=== PATIENT | male | born 1950 | race Caucasian/White ===

== ENCOUNTER 2017-08-01 10:51 | Inpatient (IN) | payer OTHER ==
[~2017-08-01] VITALS: Ht 182.9 cm; Wt 126.2 kg
[~2017-08-01 10:51] MED LIST: ADVAIR HFA 115-12 GM INH; BENICAR40 M1 PO; CARVEDILOL6.25 M1 PO; CENTRUM SILVER1 EAC3 PO; ENBREL50 MG/1 M1 SC; FINASTERIDE5 M1 PO; FOLIC ACID1 M1 PO; FUROSEMIDE40 M1 PO; KLOR-CON M1010 ME1 PO; METHOTREXATE2.5 M2 PO; PREDNISONE20 M1 PO; PREDNISONE5 M1 PO; VENTOLIN HFA18 GM INH; VITAMIN D31000 UNI2 PO; XARELTO20 M2 PO
--- NOTE | 2017-08-01 12:44 | ED GENERAL ADULT ---
History of Present Illness General Chief Complaint: General Adult Stated Complaint: SENT BY FOR POSSIBLE HEART VALVE INFECTION Source: patient, family, old records Exam Limitations: no limitations Allergies Coded Allergies: No Known Allergies (08/01/17) Reconcile Medications Albuterol Sulfate (Ventolin Hfa) 90 MCG HFA.AER.AD 2 PUF INH Q6-PRN PRN SHORTNESS OF BREATH (Reported) Carvedilol 6.25 MG TABLET 1 TAB PO BID HEART (Reported) Cholecalciferol (Vitamin D3) 1,000 UNIT TABLET 1 TAB PO DAILY VITAMIN SUPPORT (Reported) Etanercept (Enbrel) 50 MG/ML (0.98 ML) PEN.INJCTR 1 INJ SC QMON RA (Reported) Finasteride 5 MG TABLET 1 TAB PO DAILY PROSTATE (Reported) Fluticasone Propionate/Salme (Advair Hfa 115-21 Mcg Inhaler) 115 MCG-21 MCG/ ACTUATION HFA.AER.AD 2 PUFF INH BID BREATHING PROBLEMS (Reported) Folic Acid 1 MG TABLET 1 TAB PO DAILY SUPPLEMENT (Reported) Furosemide 40 MG TABLET 1 TAB PO DAILY WATER RETENTION (Reported) Methotrexate 2.5 MG TABLET 6 TAB PO QMON RA (Reported) Multivit-Min/FA/Lycopen/Lutein (Centrum Silver Tablet) 0.4 MG-300 MCG-250 MCG TABLET 1 TAB PO DAILY VITAMIN SUPPORT (Reported) Olmesartan Medoxomil (Benicar) 40 MG TABLET 1 TAB PO DAILY HEART (Reported) Potassium Chloride (Klor-Con M10) 10 MEQ TAB.ER.PRT 1 TAB PO DAILY SUPPLEMENT (Reported) Prednisone 5 MG TABLET 1 TAB PO DAILY STEROID (Reported) Rivaroxaban (Xarelto) 20 MG TABLET 1 TAB PO DAILY BLOOD THINNER (Reported) with food Triage Note: PT SENT FROM [facility] OFFICE FOR FEVER X3 WEEKS. PT REPORTS TMAX OF 100.1 PAST 3 WEEKS, AFEBRILE IN TRIAGE. PT'S REPORTS CHILLS/SWEATS X1 MONTH. PT NOTICEABLY AGITATED ABOUT BEING SENT TO ED. AWAKE/ALERT WITH EASY WOB. PT REPORTS TAKING TYLENOL 2 TIMES A DAY X 2 WEEKS. REPORTS PT HAS LOST 60LB WEIGHT LOSS IN PAST TWO MONTHS "BUT HE HAS BEEN ON A DIET"." Triage Nurses Notes Reviewed? yes Onset: Gradual Duration: week(s): Timing: recent history Injury Environment: home Severity: moderate HPI: 67yo male with hx of a fib s/p pacemaker/defibrillation on Xarelto, COPD on CPAP , CHF current daily tobacco user presents to ED complaining of intermittent fevers and chills x > 1 month. Patient was sent in by his primary care provider for concerns of sepsis from his left knee and hip replacement 15 years ago. He was also seen by his certified nutritionist on Friday who did not express any concerns. He states his fevers have been in the range of 98.6-100.1 F with improvement on Tylenol. PAtient reports chronic dyspnea worse with exersion however no new changes. He endorses 60 pound weight loss in two months for which he attributes to his new diet. He denies chest pain, palpitations, nausea, vomiting, abdominal pain, hip & knee pain. (Luzma Deleon) Vital Signs & Intake/Output Vital Signs & Intake/Output Vital Signs Date Time Temp Pulse Resp B/P B/P Pulse O2 O2 Flow FiO2 Mean Ox Delivery Rate 08/01 1634 99.1 72 20 140/78 96 Room Air / 1510 99.2 69 20 137/74 95 Room Air 04/ 1336 99.1 71 22 153/73 95 Room Air 04/ 1103 97.3 78 16 140/79 95 Room Air (Kita BAEZ,Juanito Quezada) Past History Travel History Traveled to [place] past 21 day No Medical History Any Pertinent Medical History? see below for history Neurological: NONE EENT: NONE Cardiovascular: AFIB, CHF, hypertension Respiratory: COPD, emphysema, pneumonia Gastrointestinal: NONE Hepatic: NONE Renal: NONE Musculoskeletal: rheumatoid arthritis Psychiatric: NONE Endocrine: NONE Blood Disorders: NONE Cancer(s): NONE History of MRSA: No History of VRE: No History of CDIFF: No Influenza Vaccine: 02/26/10 Surgical History Surgical History: hip replacement, knee replacement Psychosocial History Who do you live with Family Services at Home None What is your primary language Maori Tobacco Use: Current Daily Use Daily Tobacco Use Amount/Type: => 5 Cigarettes daily Family History Family History, If Any: Relation not specified for: FH: breast cancer Heart attack Hx Contributory? No (Luzma Deleon) Review of Systems Review of Systems Constitutional: Reports: see HPI. EENTM: Reports: no symptoms. Respiratory: Reports: see HPI. Cardiovascular: Reports: no symptoms. GI: Reports: no symptoms. Genitourinary: Reports: no symptoms. Musculoskeletal: Reports: no symptoms. Skin: Reports: no symptoms. Neurological/Psychological: Reports: no symptoms. Hematologic/Endocrine: Reports: no symptoms. Immunologic/Allergic: Reports: no symptoms. All Other Systems: Reviewed and Negative (Marlen SCALES,Luzma Littlejohn) Physical Exam Physical Exam General Appearance: well developed/nourished, no apparent distress, alert, awake Head: atraumatic, normal appearance Eyes: Bilateral: normal appearance. Ears, Nose, Throat: hearing grossly normal Neck: normal inspection, supple, full range of motion Respiratory: no respiratory distress, decreased breath sounds Cardiovascular: regular rate/rhythm Gastrointestinal: normal bowel sounds, soft, non-tender, obese Back: normal inspection, normal range of motion, no CVA tenderness Extremities: normal range of motion, 1-2+ pitting edema Neurologic/Psych: no motor/sensory deficits, awake, alert, oriented x 3, normal mood/affect Skin: intact, normal color, warm/dry Core Measures ACS in differential dx? No CVA/TIA Diagnosis: No Sepsis Present: No Sepsis Focused Exam Completed? No (Marlen SCALES,Luzma Littlejohn) Progress Differential Diagnoses I considered the following diagnoses in my evaluation of the patient: [Sepsis, pneumonia, malignancy, bowel obstruction, colitis] Diagnostic Imaging: Viewed by Me: Radiology Read, CT Scan. Discussed w/RAD: Radiology Read, CT Scan. Radiology Impression: PATIENT: JUAN DANIEL ZHU PRESENT AGE: 67 PATIENT ACCOUNT NO: [id number] : 48 LOCATION: [facility] ORDERING PHYSICIAN: Luzma SCALES SERVICE DATE: 08/01/17 EXAM TYPE: CAT - CT ABD & PELVIS W IV CONTRAST; CT CHEST W IV CONTRAST EXAMINATION: CT CHEST WITH IV CONTRAST CT ABDOMEN AND PELVIS WITH IV CONTRAST CLINICAL INFORMATION: Fever and weight loss. COMPARISON: Chest CT from 02/08/2013 TECHNIQUE: Multidetector CT imaging examination of the chest, abdomen and pelvis was performed with intravenous administration of 95 mL Optiray 320. Axial images are displayed at 0.625 mm and 5 mm slice thickness. Coronal and sagittal reformatted images were generated at the technologist's workstation and submitted for review. DLP: 1784 mGy-cm FINDINGS: CHEST - LUNGS and PLEURA: Mild -to-moderate centrilobular and paraseptal emphysema. There are secretions layering along the posterior wall of the trachea and right mainstem bronchus. A spiculated masslike opacity/consolidation in the medial right apex is difficult to precisely measure given its irregular border; it measures approximately 6.9 cm transverse, 6 cm AP and 6 cm craniocaudal. The lesion has irregular extensions to overlying pleura and appears to infiltrate through pleura into the paraspinal fat at the T3 level. There is reticular opacity around the lesion. The right upper lobe bronchus is surrounded and compressed by enlarged lymph nodes and/or infiltrative tumor. There are 0.4 cm and 0.2 cm solid, noncalcified nodules of the right middle lobe (images 280 and 326, series 4). Within the right lower lobe, there are a few nodules ranging in size from 0.1 cm to 0.4 cm (images 227, 310 and 429, series 4). Small focus of mild pleural thickening of the left major fissure likely represents a perifissural lymph node (image 223, series 4). MEDIASTINUM: Dual-chamber cardiac pacing lead/ICD in place. The heart size is normal. Atherosclerotic calcification of coronary arteries and thoracic aorta without aortic aneurysm. Pulmonary arteries are normal in caliber. Trace pericardial effusion. The esophagus and thyroid gland are unremarkable. LYMPHATICS: No axillary lymphadenopathy. Large hilar lymph nodes surround and compressed the bronchus of the right upper lobe. At and above the level of the aortic arch, a large paratracheal lymph node measures 3.4 cm transverse, 3.8 cm AP. CHEST WALL/BONES: A nonaggressive sclerotic focus in the inferior left scapula is unchanged compared to 02/08/2013. There are no suspicious osseous lesions within the thorax. No acute findings within the degenerated thoracic spine. ABDOMEN AND PELVIS - HEPATOBILIARY: Multiple simple cysts of the liver. Calcified granuloma within the liver, as well. Cholelithiasis. No intrahepatic or extrahepatic bile duct dilatation. PANCREAS: Unremarkable. SPLEEN: Unremarkable. ADRENAL GLANDS: Unremarkable. KIDNEYS, URETERS, BLADDER: No nephrolithiasis or hydronephrosis. Simple cysts of water attenuation of both kidneys, largest of the upper pole measuring 5.6 cm transverse. Also, there are a few indeterminate, hyperdense cortical lesions which are probably hyperdense cysts, but unable to exclude a solid renal mass. For example, there is a 1.7 cm hyperdense, exophytic lesion of the posterior left upper pole that has attenuation of approximately 60 Hounsfield units (image 65, series 2) and 1.1 cm hyperdense lesion of the left lower pole, attenuation of approximately 30 HU ( image 83, series 2). The ureters are unremarkable. No evidence of bladder mass. GI TRACT AND PERITONEUM: Bowel loops are normal in caliber. Appendix is normal. No inflammation or obstruction along the gastrointestinal tract. No ascites or pneumoperitoneum. ABDOMINAL WALL: No significant findings. VASCULAR: Atherosclerotic calcification of the abdominal aorta without aneurysm. LYMPH NODES: No pathologic sized lymph nodes within the abdomen or pelvis. PELVIC VISCERA: Prostate gland, which is normal in size, has calcifications. There is an old cystic focus of water attenuation around the urethra inferior to the apex of the prostate gland. No pelvic free fluid. OSSEOUS STRUCTURES: Streak artifact is produced by the metallic components of the left total hip arthroplasty. Multilevel facet arthropathy and disc degeneration of the lumbar spine. No aggressive osseous lesions. IMPRESSION: 1. Pulmonary emphysema. 2. Right upper lobe bronchus is occluded by the surrounding lymphadenopathy and/or tumor. The spiculated masslike opacity in the right upper lobe could represent a combination of infiltrative tumor and postobstructive pneumonia. The lesion infiltrates into the adjacent pleura and appears to invade through pleura into paraspinal fat at the T3 level. A large right paratracheal lymph node measures 3.4 x 3.8 cm. Scattered, small nodules are present in the right lung. No pleural effusion. 3. No evidence of metastatic disease within the abdomen or pelvis. 4. Atherosclerotic disease of coronary arteries and aorta without aortic aneurysm. 5. Multiple hepatic and renal cysts. Also, there are a few hyperdense renal cortical lesions that are probably hyperdense cysts, but are not fully characterized on this examination. Solid renal masses are not excluded. 6. Cholelithiasis. DICTATED BY: Benjy Cristobal MD DATE/TIME DICTATED:08/01/171416 CONTRACTS LAW PROFESSOR:TYLOR DATE/TIME TRANSCRIBED:08/01/171416 CONFIDENTIAL, DO NOT COPY WITHOUT APPROPRIATE AUTHORIZATION. <Electronically signed in Other Vendor System> SIGNED BY: Benjy Cristobal MD 08/01/17 1449 CXR Impression: PATIENT: JUAN DANIEL ZHU PRESENT AGE: 67 PATIENT ACCOUNT NO: [id number] : 48 LOCATION: [facility] ORDERING PHYSICIAN: Luzma SCALES SERVICE DATE: 08/01/174 EXAM TYPE: RAD - XRY-CHEST XRAY, TWO VIEWS EXAMINATION: XR CHEST CLINICAL INFORMATION: Fever and weight loss. COMPARISON: 02/05/2017 TECHNIQUE: 2 views of the chest were obtained. FINDINGS: Lungs are hyperexpanded from emphysematous disease. There is abnormal opacity from mass and/or consolidation with surrounding reticulation of the right upper lobe. The region of masslike opacity in the upper lobe measures approximately 5 cm in size. This could represent a combination of neoplasm and pneumonia, given history of fever and weight loss. No pleural effusion. Cardiac silhouette is at the upper range of normal size. Dual-chamber cardiac pacemaker/ AICD in place. Atherosclerotic calcification of the aortic arch. Bones appear diffusely osteopenic. No acute findings within the degenerated thoracic spine. IMPRESSION: 1. Pulmonary emphysema. 2. Abnormal, approximately 5 cm masslike opacity in the right upper lobe. In addition, there is reticular opacity in the upper lobe. No pleural effusion. DICTATED BY: Benjy Cristobal MD DATE/TIME DICTATED:08/01/171408 CONTRACTS LAW PROFESSOR:TYLOR DATE/TIME TRANSCRIBED:1408 CONFIDENTIAL, DO NOT COPY WITHOUT APPROPRIATE AUTHORIZATION. < Electronically signed in Other Vendor System> SIGNED BY: Benjy Cristobal MD 08/01/17 1420 Initial ED EKG: atrial fib/flutter rate 70bpm, nonspecific ST changes Prior EKG: unchanged (02/05/17) (Marlen SCALES,Luzma Littlejohn) Plan of Care: Orders Procedure Date/time Status Regular Diet 08/02 B Active Patient Data 08/01 1854 Active Misc Message 08/01 183 Active ED Holding Orders 08/01 183 Active Admit to inpatient 08/01 183 Active Vital Signs 08/01 183 Active Code Status 08/01 183 Active LACTIC ACID 08/01 1510 Complete Add-on Test (ER Only) 08/01 1253 Active C-REACTIVE PROTEIN 08/01 1230 Complete B-TYPE NATRIURETIC PEP (BNP) 08/01 1230 Complete BLOOD CULTURE 08/01 121 Active TROPONIN LEVEL 08/01 121 Complete LACTIC ACID 08/01 121 Complete HIGH SENSITIVITY CRP 08/01 1209 Complete COMPREHENSIVE METABOLIC PANEL 08/01 121 Complete CBC WITHOUT DIFFERENTIAL 08/01 1209 Complete EKG 08/01 1209 Active Current Medications Sig/Ta Start time Last Medication Dose Stop Time Status Admin Azithromycin 500 MG ONCE ONE 08/01 1899 UNVr (Zithromax) 08/01 1958 Dextrose/Water 250 ML (D5W) Ceftriaxone Sodium 1,000 MG ONCE ONE 08/01 1899 UNVr (Rocephin) 08/01 190 Sodium Chloride 1,000 ML ONCE ONE 08/01 1330 AC 08/01 (Normal Saline 0.9%) 08/01 2328 1330 Laboratory Tests 08/01/17 1520: Lactic Acid 1.5 08/01/17 1230: Anion Gap 12, Estimated GFR > 60, BUN/Creatinine Ratio 30.0 H, Glucose 100 H, Lactic Acid 2.1, Calcium 8.9, Total Bilirubin 0.7, AST 17, ALT 24, Alkaline Phosphatase 71, Troponin I < 0.01, C-Reactive Prot, Quant 8.8 H, C-React Prot High Sens > 15.0 H, Aaz-X-Wdataicxlnl Pept 1270 H, Total Protein 6.4, Albumin 3.1 L, Globulin 3.3, Albumin/Globulin Ratio 0.9 L, CBC w Diff NO MAN DIFF REQ, RBC 4.45 L, MCV 92.8, MCH 30.6, MCHC 33.0, RDW 14.9 H, MPV 10.1, Gran % 82.3 H, Lymphocytes % 6.8 L, Monocytes % 10.0 H, Eosinophils % 0.2, Basophils % 0.7 , Absolute Granulocytes 11.4 H, Absolute Lymphocytes 0.9 L, Absolute Monocytes 1.4 H, Absolute Eosinophils 0, Absolute Basophils 0.1 Microbiology 08/01 1240 BLOOD: Blood Culture - RECD 08/01 1229 BLOOD: Blood Culture - RECD Patient's chest x-ray and CAT scans are showing new lung mass with suspicion for tumor as well as surrounding pneumonia. There is evidence for tumor infiltrate into spine. These findings were discussed with the patient and his family and with Dr. East. I spoke with Dr. BARRIOS who strongly recommended hospital admission for IV antibiotics given likely pneumonia pulmonology consult. Patient agrees to stay for hospital admission. Spoke with hospitalist Dr. Desai regarding this patient's general medicine admission for pneumonia and lung cancer. Case management recommended full admission. (Luzma Deleon) (Kita BAEZ,Juanito Quezada) Departure Departure Disposition: STILL A PATIENT Condition: Stable Clinical Impression Primary Impression: Pneumonia Qualifiers: Pneumonia type: due to unspecified organism Laterality: right Lung location: upper lobe of lung Qualified Code: J18.1 - Lobar pneumonia, unspecified organism Secondary Impressions: Lung cancer Qualifiers: Laterality: right Lung location: upper lobe of lung Qualified Code: C34.11 - Malignant neoplasm of upper lobe, right bronchus or lung Referrals: Aiden Barrios MD (PCP/Family) Departure Forms: Customer Survey General Discharge Information Admission Note Spoke With: Kaley Desai MD Documentation of Exam: Documentation of any treatments & extenuating circumstances including Concerns Regarding Discharge (functional status, medication knowledge or non-compliance, living conditions, etc.) that warrant an admission rather than observation: [New lung cancer with likely surrounding pneumonia requiring IV antibiotics, pulmonology consult, premature discharge medically unsafe.] (Luzma Deleon) PA/DENTAL LABORATORY TECHNICIAN APPRENTICE Co-Sign Statement Statement: ED Attending supervision documentation- [X] I saw and evaluated the patient. I have also reviewed all the pertinent lab results and diagnostic results. I agree with the findings and the plan of care as documented in the PA's/DENTAL LABORATORY TECHNICIAN APPRENTICE's documentation. Patient presents for evaluation of persistent fever and weight loss for roughly a month. Physical examination reveals a comfortable appearing gentleman in no acute respiratory distress. [] I have reviewed the ED Record and agree with the PA's/DENTAL LABORATORY TECHNICIAN APPRENTICE's documentation. [] Additions or exceptions (if any) to the PAs/DENTAL LABORATORY TECHNICIAN APPRENTICE's note and plan are summarized below: [] (Kita BAEZ,Juanito Quezada) Critical Care Note Critical Care Note Critical Care Time: 30-74 min (Luzma Deleon)
[2017-08-01 12:55] LABS: ABSOLUTE BASOPHIL COUNT 0.1 /CUMM (0.0-0.2); ABSOLUTE EOSINOPHIL COUNT 0 /CUMM (0.0-0.7); ABSOLUTE GRANULOCYTE CT 11.4 /CUMM (1.4-6.5); ABSOLUTE LYMPH COUNT 0.9 /CUMM (1.2-3.4); ABSOLUTE MONOCYTE COUNT 1.4 /CUMM (0.10-0.60); BASOPHIL % 0.7 % (0.0-2.0); EOSINOPHIL % 0.2 % (0-5); GRANULOCYTE % 82.3 % (42.2-75.2); HEMATOCRIT 41.3 % (42-52); MEAN CORPUSCULAR HGB 30.6 PG (27.0-31.0); MEAN CORPUSCULAR VOLUME 92.8 FL (80.0-94.0); MEAN PLATELET VOLUME 10.1 FL (7.4-10.4); PLATELET COUNT 302 /CUMM (130-400); RBC DISTRIBUTION WIDTH 14.9 % (11.5-14.5); RED BLOOD CELL CT 4.45 /CUMM (4.70-6.10); WHITE BLOOD CELL COUNT 13.8 /CUMM (4.8-10.8)
--- NOTE | 2017-08-01 14:20 | RADIOLOGY REPORT ---
EXAMINATION: XR CHEST CLINICAL INFORMATION: Fever and weight loss. COMPARISON: 02/05/2017 TECHNIQUE: 2 views of the chest were obtained. FINDINGS: Lungs are hyperexpanded from emphysematous disease. There is abnormal opacity from mass and/or consolidation with surrounding reticulation of the right upper lobe. The region of masslike opacity in the upper lobe measures approximately 5 cm in size. This could represent a combination of neoplasm and pneumonia, given history of fever and weight loss. No pleural effusion. Cardiac silhouette is at the upper range of normal size. Dual-chamber cardiac pacemaker/AICD in place. Atherosclerotic calcification of the aortic arch. Bones appear diffusely osteopenic. No acute findings within the degenerated thoracic spine. IMPRESSION: 1. Pulmonary emphysema. 2. Abnormal, approximately 5 cm masslike opacity in the right upper lobe. In addition, there is reticular opacity in the upper lobe. No pleural effusion.
--- NOTE | 2017-08-01 14:49 | CT SCAN REPORT ---
EXAMINATION: CT CHEST WITH IV CONTRAST CT ABDOMEN AND PELVIS WITH IV CONTRAST CLINICAL INFORMATION: Fever and weight loss. COMPARISON: Chest CT from 02/08/2013 TECHNIQUE: Multidetector CT imaging examination of the chest, abdomen and pelvis was performed with intravenous administration of 95 mL Optiray 320. Axial images are displayed at 0.625 mm and 5 mm slice thickness. Coronal and sagittal reformatted images were generated at the technologist's workstation and submitted for review. DLP: 1784 mGy-cm FINDINGS: CHEST - LUNGS and PLEURA: [id number] centrilobular and paraseptal emphysema. There are secretions layering along the posterior wall of the trachea and right mainstem bronchus. A spiculated masslike opacity/consolidation in the medial right apex is difficult to precisely measure given its irregular border; it measures approximately 6.9 cm transverse, 6 cm AP and 6 cm craniocaudal. The lesion has irregular extensions to overlying pleura and appears to infiltrate through pleura into the paraspinal fat at the T3 level. There is reticular opacity around the lesion. The right upper lobe bronchus is surrounded and compressed by enlarged lymph nodes and/or infiltrative tumor. There are 0.4 cm and 0.2 cm solid, noncalcified nodules of the right middle lobe (images 280 and 326, series 4). Within the right lower lobe, there are a few nodules ranging in size from 0.1 cm to 0.4 cm (images 227, 310 and 429, series 4). Small focus of mild pleural thickening of the left major fissure likely represents a perifissural lymph node (image 223, series 4). MEDIASTINUM: Dual-chamber cardiac pacing lead/ICD in place. The heart size is normal. Atherosclerotic calcification of coronary arteries and thoracic aorta without aortic aneurysm. Pulmonary arteries are normal in caliber. Trace pericardial effusion. The esophagus and thyroid gland are unremarkable. LYMPHATICS: No axillary lymphadenopathy. Large hilar lymph nodes surround and compressed the bronchus of the right upper lobe. At and above the level of the aortic arch, a large paratracheal lymph node measures 3.4 cm transverse, 3.8 cm AP. CHEST WALL/BONES: A nonaggressive sclerotic focus in the inferior left scapula is unchanged compared to 02/08/2013. There are no suspicious osseous lesions within the thorax. No acute findings within the degenerated thoracic spine. ABDOMEN AND PELVIS - HEPATOBILIARY: Multiple simple cysts of the liver. Calcified granuloma within the liver, as well. Cholelithiasis. No intrahepatic or extrahepatic bile duct dilatation. PANCREAS: Unremarkable. SPLEEN: Unremarkable. ADRENAL GLANDS: Unremarkable. KIDNEYS, URETERS, BLADDER: No nephrolithiasis or hydronephrosis. Simple cysts of water attenuation of both kidneys, largest of the upper pole measuring 5.6 cm transverse. Also, there are a few indeterminate, hyperdense cortical lesions which are probably hyperdense cysts, but unable to exclude a solid renal mass. For example, there is a 1.7 cm hyperdense, exophytic lesion of the posterior left upper pole that has attenuation of approximately 60 Hounsfield units (image 65, series 2) and 1.1 cm hyperdense lesion of the left lower pole, attenuation of approximately 30 HU (image 83, series 2). The ureters are unremarkable. No evidence of bladder mass. GI TRACT AND PERITONEUM: Bowel loops are normal in caliber. Appendix is normal. No inflammation or obstruction along the gastrointestinal tract. No ascites or pneumoperitoneum. ABDOMINAL WALL: No significant findings. VASCULAR: Atherosclerotic calcification of the abdominal aorta without aneurysm. LYMPH NODES: No pathologic sized lymph nodes within the abdomen or pelvis. PELVIC VISCERA: Prostate gland, which is normal in size, has calcifications. There is an old cystic focus of water attenuation around the urethra inferior to the apex of the prostate gland. No pelvic free fluid. OSSEOUS STRUCTURES: Streak artifact is produced by the metallic components of the left total hip arthroplasty. Multilevel facet arthropathy and disc degeneration of the lumbar spine. No aggressive osseous lesions. IMPRESSION: 1. Pulmonary emphysema. 2. Right upper lobe bronchus is occluded by the surrounding lymphadenopathy and/or tumor. The spiculated masslike opacity in the right upper lobe could represent a combination of infiltrative tumor and postobstructive pneumonia. The lesion infiltrates into the adjacent pleura and appears to invade through pleura into paraspinal fat at the T3 level. A large right paratracheal lymph node measures 3.4 x 3.8 cm. Scattered, small nodules are present in the right lung. No pleural effusion. 3. No evidence of metastatic disease within the abdomen or pelvis. 4. Atherosclerotic disease of coronary arteries and aorta without aortic aneurysm. 5. Multiple hepatic and renal cysts. Also, there are a few hyperdense renal cortical lesions that are probably hyperdense cysts, but are not fully characterized on this examination. Solid renal masses are not excluded. 6. Cholelithiasis.
--- NOTE | 2017-08-01 20:38 | History & Physical ---
Js Adkins 08/01/172037: General Information and HPI MD Statement: I have seen and personally examined JUAN DANIEL ZHU and documented this H& P. The patient is a 67 year old M who presented with a patient stated chief complaint of [Fever, weakness]. Source of Information: patient, family, old records, PCP Exam Limitations: no limitations History of Present Illness: This is a 67-year-old male with a medical history of A. fib status post AV node ablation and pacemaker placement on Xeralto, rheumatoid arthritis on chronic prednisone, methotrexate and TNF, hypertension, BPH, COPD not on O2 at home, obstructive sleep apnea intermittent use of BiPAP. Presented to the emergency department after pain referred by his primary care doctor due to concern of his fever and chills. Patient stated that for the past month he has low-grade fever that time between 99.9 and 100.1, he stated that he take 2 tablets of Tylenol which help with his fever and chills, also he reports some night sweating, he stated that he change his diet and due to that he lost 60 pounds within the past 4-6 month, he stated that the due to this fever, chills and night sweats he been feeding week, fatigue and tired. He stated there is no change in his cough pattern but still productive with some white sputum, breathing status. He saw his primary care doctor who sent him to the ED for further evaluation due to concern of joint infection as the patient has his left hip replaced 3-5 years ago and his knee more than 10 years ago. He stated that he is compliant with his home medication. He still actively smoker 1-2 pack per day for the past 50 years. Patient stated that he follow with his paper tube cutter Bayron Alonzo MD who will obtain for him annual TB testing, his stated that last time was around 6 month ago and it was negative. He denies chest pain, excessive wheezing , excessive shortness of breath, palpitations, orthopnea, nausea, vomiting, constipation, diarrhea, abdominal pain, hip & knee pain, hematuria, dysuria. In the ED patient received 1 L of normal saline bolus, started on IV ceftriaxone and azithromycin as the CAT scan of the chest showed obstructive pneumonia with a masslike on the right upper lobe with large right lymphadenopathy. Most recent admission to [facility] was in January 2017 for COPD exacerbation that was treated with IV Solu-Medrol and he'll receive additional dose of IV Lasix. Most recent echocardiogram and the cord was in January 2017 with ejection fraction of 65% Allergies/Medications Allergies: Coded Allergies: No Known Allergies (08/01/17) Home Med list Albuterol Sulfate (Ventolin Hfa) 90 MCG HFA.AER.AD 2 PUF INH Q6-PRN PRN SHORTNESS OF BREATH (Reported) Carvedilol 6.25 MG TABLET 1 TAB PO BID HEART (Reported) Cholecalciferol (Vitamin D3) 1,000 UNIT TABLET 1 TAB PO DAILY VITAMIN SUPPORT (Reported) Etanercept (Enbrel) 50 MG/ML (0.98 ML) PEN.INJCTR 1 INJ SC QMON RA (Reported) Finasteride 5 MG TABLET 1 TAB PO DAILY PROSTATE (Reported) Fluticasone Propionate/Salme (Advair Hfa 115-21 Mcg Inhaler) 115 MCG-21 MCG/ ACTUATION HFA.AER.AD 2 PUFF INH BID BREATHING PROBLEMS (Reported) Folic Acid 1 MG TABLET 1 TAB PO DAILY SUPPLEMENT (Reported) Furosemide 40 MG TABLET 1 TAB PO DAILY WATER RETENTION (Reported) Methotrexate 2.5 MG TABLET 6 TAB PO QMON RA (Reported) Multivit-Min/FA/Lycopen/Lutein (Centrum Silver Tablet) 0.4 MG-300 MCG-250 MCG TABLET 1 TAB PO DAILY VITAMIN SUPPORT (Reported) Olmesartan Medoxomil (Benicar) 40 MG TABLET 1 TAB PO DAILY HEART (Reported) Potassium Chloride (Klor-Con M10) 10 MEQ TAB.ER.PRT 1 TAB PO DAILY SUPPLEMENT (Reported) Prednisone 5 MG TABLET 1 TAB PO DAILY STEROID (Reported) Rivaroxaban (Xarelto) 20 MG TABLET 1 TAB PO DAILY BLOOD THINNER (Reported) with food Past History Travel History Traveled to [place] past 21 day No Medical History Neurological: NONE EENT: NONE Cardiovascular: AFIB, CHF, hypertension Respiratory: COPD, emphysema, pneumonia Gastrointestinal: NONE Hepatic: NONE Renal: NONE Musculoskeletal: rheumatoid arthritis Psychiatric: NONE Endocrine: NONE Blood Disorders: NONE Cancer(s): NONE History of MRSA: No History of VRE: No History of CDIFF: No Influenza Vaccine: 02/26/10 Surgical History Surgical History: hip replacement, knee replacement Past Family/Social History Family History Relations & Conditions if any Relation not specified for: FH: breast cancer Heart attack Psychosocial History Who Do You Live With? spouse, child Services at Home: None Primary Language: Greenlandic Smoking Status: Current Everyday Smoker Living Will? yes Functional Ability ADLs Independent: dressing, eating, toileting, bathing. Ambulation: independent Review of Systems Review of Systems Constitutional: Reports: see HPI. Cardiovascular: Reports: see HPI. Respiratory: Reports: see HPI. GI: Reports: see HPI. Genitourinary: Reports: see HPI. Exam & Diagnostic Data Last 24 Hrs of Vital Signs/I&O Vital Signs Date Time Temp Pulse Resp B/P B/P Pulse O2 O2 Flow FiO2 Mean Ox Delivery Rate 08/01 1634 99.1 72 20 140/78 96 Room Air 08/01 1510 99.2 69 20 137/74 95 Room Air 08/01 1336 99.1 71 22 153/73 95 Room Air 08/01 1103 97.3 78 16 140/79 95 Room Air Intake & Output 08/01 1600 08/01 0800 08/01 0000 Intake Total 100 Output Total Balance 100 Intake, IV 100 Intake, Oral 0 Patient 288 lb Weight Weight Reported by Patient Measurement Method Physical Exam General Appearance Alert, Oriented X3, Cooperative Skin right upper chest fold rash Skin Temp/Moisture Exam: Warm/Dry HEENT Atraumatic, PERRLA, EOMI Neck Supple Cardiovascular Normal S1, Normal S2, irregular irregular Lungs Normal Air Movement, bibasilar rhonchi Abdomen Normal Bowel Sounds, Soft, No Tenderness Extremities + 3 bilateral lower extremity pitting edema Last 24 Hrs of Labs/Kali: Laboratory Tests 08/01/17 1520: Lactic Acid 1.5 08/01/17 1230: Anion Gap 12, Estimated GFR > 60, BUN/Creatinine Ratio 30.0 H, Glucose 100 H, Lactic Acid 2.1, Calcium 8.9, Total Bilirubin 0.7, AST 17, ALT 24, Alkaline Phosphatase 71, Troponin I < 0.01, C-Reactive Prot, Quant 8.8 H, C-React Prot High Sens > 15.0 H, Fwl-M-Jyejynsjzcv Pept 1270 H, Total Protein 6.4, Albumin 3.1 L, Globulin 3.3, Albumin/Globulin Ratio 0.9 L, CBC w Diff NO MAN DIFF REQ, RBC 4.45 L, MCV 92.8, MCH 30.6, MCHC 33.0, RDW 14.9 H, MPV 10.1, Gran % 82.3 H, Lymphocytes % 6.8 L, Monocytes % 10.0 H, Eosinophils % 0.2, Basophils % 0.7 , Absolute Granulocytes 11.4 H, Absolute Lymphocytes 0.9 L, Absolute Monocytes 1.4 H, Absolute Eosinophils 0, Absolute Basophils 0.1 Microbiology 08/01 2025 NASOPHARYN: Influenza Virus A & B Rapid Smear - ORD 08/01 1240 BLOOD: Blood Culture - RECD 08/01 1230 BLOOD: Blood Culture - RECD Diagnostic Data EKG Results Atrial fibrillation heart rate 70, QTC 471, no ST-T changes CXR Results EXAMINATION: XR CHEST CLINICAL INFORMATION: Fever and weight loss. COMPARISON: 02/05/2017 TECHNIQUE: 2 views of the chest were obtained. FINDINGS: Lungs are hyperexpanded from emphysematous disease. There is abnormal opacity from mass and/or consolidation with surrounding reticulation of the right upper lobe. The region of masslike opacity in the upper lobe measures approximately 5 cm in size. This could represent a combination of neoplasm and pneumonia, given history of fever and weight loss. No pleural effusion. Cardiac silhouette is at the upper range of normal size. Dual-chamber cardiac pacemaker/AICD in place. Atherosclerotic calcification of the aortic arch. Bones appear diffusely osteopenic. No acute findings within the degenerated thoracic spine. IMPRESSION: 1. Pulmonary emphysema. 2. Abnormal, approximately 5 cm masslike opacity in the right upper lobe. In addition, there is reticular opacity in the upper lobe. No pleural effusion. Other Results EXAMINATION: CT CHEST WITH IV CONTRAST CT ABDOMEN AND PELVIS WITH IV CONTRAST CLINICAL INFORMATION: Fever and weight loss. COMPARISON: Chest CT from 02/08/2013 TECHNIQUE: Multidetector CT imaging examination of the chest, abdomen and pelvis was performed with intravenous administration of 95 mL Optiray 320. Axial images are displayed at 0.625 mm and 5 mm slice thickness. Coronal and sagittal reformatted images were generated at the technologist's workstation and submitted for review. DLP: 1784 mGy-cm FINDINGS: CHEST - LUNGS and PLEURA: [id number] centrilobular and paraseptal emphysema. There are secretions layering along the posterior wall of the trachea and right mainstem bronchus. A spiculated masslike opacity/consolidation in the medial right apex is difficult to precisely measure given its irregular border; it measures approximately 6.9 cm transverse, 6 cm AP and 6 cm craniocaudal. The lesion has irregular extensions to overlying pleura and appears to infiltrate through pleura into the paraspinal fat at the T3 level. There is reticular opacity around the lesion. The right upper lobe bronchus is surrounded and compressed by enlarged lymph nodes and/or infiltrative tumor. There are 0.4 cm and 0.2 cm solid, noncalcified nodules of the right middle lobe (images 280 and 326, series 4). Within the right lower lobe, there are a few nodules ranging in size from 0.1 cm to 0.4 cm (images 227, 310 and 429, series 4). Small focus of mild pleural thickening of the left major fissure likely represents a perifissural lymph node (image 223, series 4). MEDIASTINUM: Dual-chamber cardiac pacing lead/ICD in place. The heart size is normal. Atherosclerotic calcification of coronary arteries and thoracic aorta without aortic aneurysm. Pulmonary arteries are normal in caliber. Trace pericardial effusion. The esophagus and thyroid gland are unremarkable. LYMPHATICS: No axillary lymphadenopathy. Large hilar lymph nodes surround and compressed the bronchus of the right upper lobe. At and above the level of the aortic arch, a large paratracheal lymph node measures 3.4 cm transverse, 3.8 cm AP. CHEST WALL/BONES: A nonaggressive sclerotic focus in the inferior left scapula is unchanged compared to 02/08/2013. There are no suspicious osseous lesions within the thorax. No acute findings within the degenerated thoracic spine. ABDOMEN AND PELVIS - HEPATOBILIARY: Multiple simple cysts of the liver. Calcified granuloma within the liver, as well. Cholelithiasis. No intrahepatic or extrahepatic bile duct dilatation. PANCREAS: Unremarkable. SPLEEN: Unremarkable. ADRENAL GLANDS: Unremarkable. KIDNEYS, URETERS, BLADDER: No nephrolithiasis or hydronephrosis. Simple cysts of water attenuation of both kidneys, largest of the upper pole measuring 5.6 cm transverse. Also, there are a few indeterminate, hyperdense cortical lesions which are probably hyperdense cysts, but unable to exclude a solid renal mass. For example, there is a 1.7 cm hyperdense, exophytic lesion of the posterior left upper pole that has attenuation of approximately 60 Hounsfield units (image 65, series 2) and 1.1 cm hyperdense lesion of the left lower pole, attenuation of approximately 30 HU (image 83, series 2). The ureters are unremarkable. No evidence of bladder mass. GI TRACT AND PERITONEUM: Bowel loops are normal in caliber. Appendix is normal. No inflammation or obstruction along the gastrointestinal tract. No ascites or pneumoperitoneum. ABDOMINAL WALL: No significant findings. VASCULAR: Atherosclerotic calcification of the abdominal aorta without aneurysm. LYMPH NODES: No pathologic sized lymph nodes within the abdomen or pelvis. PELVIC VISCERA: Prostate gland, which is normal in size, has calcifications. There is an old cystic focus of water attenuation around the urethra inferior to the apex of the prostate gland. No pelvic free fluid. OSSEOUS STRUCTURES: Streak artifact is produced by the metallic components of the left total hip arthroplasty. Multilevel facet arthropathy and disc degeneration of the lumbar spine. No aggressive osseous lesions. IMPRESSION: 1. Pulmonary emphysema. 2. Right upper lobe bronchus is occluded by the surrounding lymphadenopathy and/or tumor. The spiculated masslike opacity in the right upper lobe could represent a combination of infiltrative tumor and postobstructive pneumonia. The lesion infiltrates into the adjacent pleura and appears to invade through pleura into paraspinal fat at the T3 level. A large right paratracheal lymph node measures 3.4 x 3.8 cm. Scattered, small nodules are present in the right lung. No pleural effusion. 3. No evidence of metastatic disease within the abdomen or pelvis. 4. Atherosclerotic disease of coronary arteries and aorta without aortic aneurysm. 5. Multiple hepatic and renal cysts. Also, there are a few hyperdense renal cortical lesions that are probably hyperdense cysts, but are not fully characterized on this examination. Solid renal masses are not excluded. 6. Cholelithiasis. Assessment/Plan Assessment: This is a 67-year-old male with a medical history of A. fib status post AV node ablation and pacemaker placement on Xeralto, rheumatoid arthritis on chronic prednisone, methotrexate and TNF, hypertension, BPH, COPD not on O2 at home, obstructive sleep apnea intermittent use of BiPAP. Presented to the emergency department after pain referred by his primary care doctor due to concern of his fever and chills. Patient stated that he have not take his home medications for today. Problem list: -Obstructive right upper lobe pneumonia with lymphadenopathy that could be due to malignancy versus TB versus fungal infection. -Weight loss, generalized weakness due to above. -Leukocytosis due to above and chronic prednisone use. -Active chronic smoker Plan: -Admit patient to general medicine floor -Vitals every shift. -Start the patient on IV Unasyn 3 g every 6 -Blood culture, sputum culture, strep and Legionella urine antigen -Obtain rapid viral flu test. -QuantiFERON, AFB sputum culture giving the p.t RA current treatment. -Nicotine patch 21 mg q24 hr. -TRC nebs as needed, cont his home inhaler -Pulmonary consultation in a.m. to assess the need for biopsy. -We will cont the home medications including Xarelto -If the p.t become hypotensive he we will need steroid stress dose of 100mg IV hydrocortisone. -Heart healthy diet -Pain pathway -DVT ppt: Xarelto -Full code. As Ranked By This Provider Problem List: 1. Pneumonia Qualifiers Pneumonia type: due to unspecified organism Laterality: right Lung location: upper lobe of lung Qualified Code: J18.1 - Lobar pneumonia, unspecified organism Core Measures/Misc (01/12) Acute Coronary Syndrome ACS Diagnosis: No Congestive Heart Failure Congestive Heart Failure Diagnosis No Cerebrovascular Accident CVA/TIA Diagnosis: No VTE (View Protocol) VTE Risk Factors Age>40 No Mechanical VTE Prophylaxis d/t N/A MechProphylax Ordered No VTE Pharm Prophylaxis d/t NA PharmProphylax ordered Sepsis (View protocol) Sepsis Present: No Shayan,Aarteyousif 08/02/17 0537: Attending MD Review Statement Attending Statement Attending MD Statement: examined this patient, discuss w/resident/PA/CONTRACTOR BUYER, agreed w/resident/PA/CONTRACTOR BUYER, discussed with family, reviewed EMR data (avail), reviewed images, amended to note Attending Assessment/Plan: CC: Low-grade fever at home, sent by primary care physician PMH: A. fib, S/P pacemaker and AICD, rheumatoid arthritis, DANIELLE on CPAP, HTN, BPH , HFpEF, COPD Patient came to ER for one-month history of low-grade fever occurring every day, morning and evening, resolved with Tylenol, associated with night sweats and occasional chills. Maximum temperature at home was 100.1. He has chronic shortness of breath, chronic productive cough with white colored sputum production, no hemoptysis. He did not notice any chest pain, palpitation. He has chronic leg edema which is much improved now. He had a 60 pound weight loss in last 2 months part of it is intentional. He was seen by ENT for concern of sinusitis, regular with follow-up with translator and interpreter. Today he was seen by primary care physician and was suggested to go to ER for further evaluation for his fever. He denies any nausea, vomiting, diarrhea, constipation, skin changes, rashes or infection, sick contacts, syncope or presyncope. Vitals: Tmax 99.2, pulse 78, RR 16, blood pressure 140/79, saturating 95% on room air On exam: A O 3, cooperative, obese, no acute distress, neck supple, JVD normal, no lymphadenopathy, mucosa moist, no focal neurological deficit, +1 leg edema, no obvious skin rashes or inflammation except chronic venous changes on bilateral lower extremities CVS: S1-S2, irregular. RS: Bilateral wheezing and rhonchi. Abdomen: Soft, distended, ND, bowel sounds present. CT abdomen and pelvis and chest with IV contrast: 1. Pulmonary emphysema. 2. Right upper lobe bronchus is occluded by the surrounding lymphadenopathy and/or tumor. The spiculated masslike opacity in the right upper lobe could represent a combination of infiltrative tumor and postobstructive pneumonia. The lesion infiltrates into the adjacent pleura and appears to invade through pleura into paraspinal fat at the T3 level. A large right paratracheal lymph node measures 3.4 x 3.8 cm. Scattered, small nodules are present in the right lung. No pleural effusion. 3. No evidence of metastatic disease within the abdomen or pelvis. 4. Atherosclerotic disease of coronary arteries and aorta without aortic aneurysm. 5. Multiple hepatic and renal cysts. Also, there are a few hyperdense renal cortical lesions that are probably hyperdense cysts, but are not fully characterized on this examination. Solid renal masses are not excluded. 6. Cholelithiasis. Assessment and plan 67-year-old male with extensive past medical history presented in ER for 1 month duration of daily low-grade fever, weight loss, night sweats. His bilateral lower extremity edema is improving, has coarse wheezing and rhonchi on examination. CT was obtained in ER which showed infiltrative masslike lesion with post obstructive pneumonia. Given his history of rheumatoid arthritis, currently on immunosuppression this could be infectious process with fungal infection, tuberculosis but at the same time with his extensive smoking history, significant emphysematous disease lung cancer is also possibility. We will start antibiotics empirically for postobstructive pneumonia, obtain cultures but patient would benefit from bronchoscopy and/or percutaneous biopsy. We will obtain pulmonology opinion + Post obstructive pneumonia + Infiltrative masslike lesion : Suspicion of cancer versus fungal infection versus tuberculosis, needed further evaluation + History of A. fib, S/P pacemaker and AICD, rheumatoid arthritis, DANIELLE on CPAP, HTN, BPH, HFpEF, COPD - Admit to general med - Continue Unasyn - Sputum cultures - IGRA - Pulmonology consult - Blood cultures - TRC nebs - Continue on his home medications - Continues xeralto for now - Patient wants to go home as soon as possible, if seen by mails supervisor in the a.m. and cleared for the discharge, could follow up outpatient for further investigations and biopsy
[2017-08-01 22:28] VITALS: BP 126/80
--- NOTE | 2017-08-02 05:39 | Admission Certification ---
Admission Certification Certification Statement - As attending physician, I certify that at the time of - admission, based on clinical presentation, severity of - symptoms, need for further diagnostic testing and - therapeutic interventions, and risk of adverse outcomes - without in-hospital treatment, in my clinical assessment, - this patient requires an acute hospital stay for a minimum - of two nights or longer. I have also considered psychsocial - factors such as support system, advanced age, financial - issues, cognitive issues, and failed out-patient treatments, - past re-admission history, safety of patient, and lack of - compliance as applicable. Specific rationale supporting this admission is: Postobstructive pneumonia, Masslike lesion in the right lung
[2017-08-02 07:00] VITALS: BP 118/64
[2017-08-02 09:06] LABS: ABSOLUTE BASOPHIL COUNT 0 /CUMM (0.0-0.2); ABSOLUTE EOSINOPHIL COUNT 0.1 /CUMM (0.0-0.7); ABSOLUTE GRANULOCYTE CT 8.3 /CUMM (1.4-6.5); ABSOLUTE LYMPH COUNT 0.9 /CUMM (1.2-3.4); ABSOLUTE MONOCYTE COUNT 1.2 /CUMM (0.10-0.60); BASOPHIL % 0 % (0.0-2.0); EOSINOPHIL % 0.6 % (0-5); GRANULOCYTE % 79.1 % (42.2-75.2); HEMATOCRIT 36.7 % (42-52); MEAN CORPUSCULAR HGB 30.5 PG (27.0-31.0); MEAN CORPUSCULAR HGB CONC 32.7 G/DL (33.0-37.0); MEAN CORPUSCULAR VOLUME 93.2 FL (80.0-94.0); MEAN PLATELET VOLUME 10.1 FL (7.4-10.4); PLATELET COUNT 255 /CUMM (130-400); RBC DISTRIBUTION WIDTH 15.2 % (11.5-14.5); RED BLOOD CELL CT 3.94 /CUMM (4.70-6.10); WHITE BLOOD CELL COUNT 10.4 /CUMM (4.8-10.8)
[2017-08-02 14:52] VITALS: BP 120/76
[2017-08-02 15:02] VITALS: BP 132/64
--- NOTE | 2017-08-02 15:03 | PN- Housestaff ---
MirianCarolina 08/02/17 1440: Subjective Follow-up For: post obstructive PNA Complaints: no complaints Review of Systems Constitutional: Reports: malaise. Objective Last 24 Hrs of Vital Signs/I&O Vital Signs Date Time Temp Pulse Resp B/P B/P Pulse O2 O2 Flow FiO2 Mean Ox Delivery Rate 08/02 1433 95 Room Air 08/02 0800 Room Air 08/02 07 98.6 70 18 118/64 93 Room Air 08/02 0000 96 Room Air 08/01 2228 97.6 66 20 126/80 96 08/01 1634 99.1 72 20 140/78 96 Room Air 08/01 1510 99.2 69 20 137/74 95 Room Air Intake & Output 08/02 1600 08/02 0808/02 0000 Intake Total 350 850 Output Total 4 250 Balance 346 600 Intake, IV 100 250 Intake, Oral 250 600 Number 3 Bowel Movements Output, Urine 4 250 Patient 126.155 kg 130.635 kg Weight Weight Bed scale Reported by Patient Measurement Method Physical Exam General Appearance: Alert, Oriented X3, Cooperative, No Acute Distress Skin: No Rashes, No Breakdown Skin Temp/Moisture Exam: Warm/Dry Sepsis Skin Exam (color): Normal for Ethnicity HEENT: Atraumatic, PERRLA, EOMI Neck: Supple, No JVD Lymphatic: Cervical nl Cardiovascular: Normal S1, Normal S2, IRREGULARLY IRREGULAR Lungs: DIMINISHED BREATH SOUNDS BILATERALLY. Abdomen: Normal Bowel Sounds, Soft Neurological: Normal Speech, Strength at 5/5 X4 Ext Extremities: 1+ PITTING EDEMA Assessment/Plan Assessment: 67-year-old male with a medical history of A. fib status post AV node ablation and pacemaker placement on Xeralto, rheumatoid arthritis on chronic prednisone, methotrexate and TNF, hypertension, BPH, COPD not on O2 at home, obstructive sleep apnea intermittent use of BiPAP. Presented to ED for evaluation low-grade fevers, night sweats and chills for the past [address] was obtained in ER which showed infiltrative masslike lesion with post obstructive pneumonia. Assessment * Infiltrative masslike lesion in right upper lobe? Malignancy fungal infection /TB * Right paratracheal lymph node measures 3.4 x 3.8 cm. * Post obstructive pneumonia * A. fib status post AV miriam ablation * Status post pacemaker and AICD * Rheumatoid arthritis * Obstructive sleep apnea on CPAP * Hypertension Plan * Continue TRC nebs [id number] * Maintain oxygen saturation above 92% * IV Unasyn for post obstructive pneumonia * Sputum and blood cultures pending * IRGA Tests ordered * Rapid flu has been negative * Pulmonology consult has been placed. Patient will need extensive workup/ biopsy for the questionable mass and lymph node seen on CT. * Continue all other home medications * Heart healthy diet * Pain pathway * DVT ppt: Xarelto * Full code. Problem List: 1. Pneumonia 2. Atrial fibrillation Pain Ratin Pain Location: NA Pain Goal: Remain pain free Pain Plan: TYLENOL Tomorrow's Labs & Rationales: CBC Kell Farrell 08/02/17 1704: Attending MD Review Statement Attending Statement Attending MD Statement: examined this patient, discuss w/resident/PA/UNIVERSITY MANAGER, agreed w/resident/PA/UNIVERSITY MANAGER, reviewed EMR data (avail) Attending Assessment/Plan: Patient seen and examined at bedside. Discussed with patient the care plan. Patient is a 67-year-old male with past medical history of COPD not on home oxygen who is a current smoker. Patient also has rheumatoid arthritis for which he is on methotrexate prednisone and etarnecept. Patient on CT chest was found to have spiculated mass in the right upper lobe and paratracheal lymph node that is 3.4 into 3.8 cm suspicious for malignancy. I discussed these findings with the patient and we can get a pulmonology consult. We will continue on the IV antibiotics for possible postobstructive pneumonia. His repeat white count is in the normal range today.
[2017-08-02 22:12] VITALS: BP 122/80
[2017-08-03 06:33] VITALS: BP 128/80
--- NOTE | 2017-08-03 08:55 | PN- Housestaff ---
Darcy BAEZ,[facility] 08/03/17 0855: Subjective Follow-up For: Post obstructive PNA Acute diarrhea Complaints: Diarrhea, cough productive of whitish sputum Subjective: The patient reports malaise and generalized weakness. His shortness of breath and cough productive of whitish sputum, slightly improved this morning. He denies fevers but did have an episode of night sweats yesterday. However, he also takes a nonbloody diarrhea with 3 episodes this morning. He denies nausea or vomiting or abdominal pain. He denies chest pains, palpitations, orthopnea. He denies dysuria but has been going to the bathroom frequently due to his Lasix therapy. Review of Systems Constitutional: Reports: see HPI, weakness. Denies: chills, fever. Objective Last 24 Hrs of Vital Signs/I&O Vital Signs Date Time Temp Pulse Resp B/P B/P Pulse O2 O2 Flow FiO2 Mean Ox Delivery Rate 08/03 0857 70 132/84 08/03 0857 132/84 08/03 0633 98.1 70 20 128/80 93 Room Air 08/02 2212 99.3 69 20 122/80 93 Room Air 08/02 2107 72 132/65 08/02 2032 94 Room Air 08/02 1600 95 Room Air 08/02 1502 98.7 72 20 132/64 94 08/02 1434 Room Air 08/02 1433 95 Room Air Intake & Output 08/03 1600 08/03 0800 08/03 0000 Intake Total 600 200 Output Total Balance 600 200 Intake, IV 300 Intake, Oral 300 200 Physical Exam General Appearance: Alert, Oriented X3, Cooperative, No Acute Distress Skin: No Rashes Skin Temp/Moisture Exam: Warm/Dry Sepsis Skin Exam (color): Normal for Ethnicity HEENT: Atraumatic, PERRLA, EOMI, Mucous Membr. moist/pink Neck: Supple, No JVD, No thryomegaly Lymphatic: Cervical nl Cardiovascular: Regular Rate, Normal S1, Normal S2, No Murmurs Lungs: Clear to Auscultation, Normal Air Movement Abdomen: Normal Bowel Sounds, Soft, No Tenderness, No Hepatospenomegaly, No Masses Neurological: Normal Speech, Strength at 5/5 X4 Ext, Normal Tone, Cranial Nerves 3-12 NL Extremities: +2 bilateral pitting pedal edema, no tenderness in the legs. Current Medications: Current Medications Sig/Ta Start time Last Medication Dose Route Stop Time Status Admin Acetaminophen 650 MG Q6P PRN 08/01 2099 AC PO Albuterol Sulfate 3 ML BID 08/02 2199 AC 08/02 INH 2034 Albuterol Sulfate 2 PUF Q6-PRN PRN 08/01 2100 AC INH Ampicillin Sodium/ 3,000 MG Q6 08/02 2047 AC 08/03 Sulbactam Sodium IV 0514 Sodium Chloride 100 ML Budesonide/ 2 PUF BID 08/01 2199 AC 08/03 Formoterol Fumarate INH 0855 Carvedilol 6.25 MG BID 08/01 2199 AC 08/03 PO 0857 Finasteride 5 MG DAILY 08/02 1000 AC 08/03 PO 0856 Folic Acid 1 MG DAILY 08/02 1000 AC 08/03 PO 0857 Furosemide 40 MG DAILY 08/01 2058 AC 08/02 PO 1423 Hydrocodone Bitart/ 1 TAB Q8P PRN 08/01 2100 AC Acetaminophen PO Ipratropium D[place]ora 2.5 ML BID 08/02 2199 AC 08/02 INH 2033 Loperamide HCl 2 MG Q6P PRN 08/03 0845 AC 08/03 PO 0854 Losartan Potassium 100 MG DAILY 08/02 1000 AC 08/03 PO 0857 Multivitamins 1 TAB DAILY 08/02 1000 AC 08/03 PO 0855 Nicotine 21 MG Q24 08/01 2044 AC TOP Oxycodone HCl 5 MG Q8P PRN 08/01 2100 AC PO Potassium Chloride 10 MEQ DAILY 08/01 2102 AC 08/03 PO 0857 Prednisone 5 MG DAILY 08/01 2100 AC 08/03 PO 0856 Rivaroxaban 20 MG DAILY 08/01 210 AC 08/03 PO 0856 Last 24 Hrs of Lab/Kali Results Last 24 Hrs of Labs/Mics: Microbiology 08/02 1049 STOOL: Clostridium difficile Toxin A & B - COMP Assessment/Plan Assessment: The patient is a 67-year-old man with a medical history of A. fib status post AV node ablation and pacemaker placement on Xeralto, rheumatoid arthritis on chronic prednisone, methotrexate and TNF, hypertension, BPH, COPD not on O2 at home, obstructive sleep apnea with intermittent use of BiPAP. He presented to the ED for evaluation low-grade fevers, night sweats and chills for the past [address] scan of his chest was obtained in the ER which showed an infiltrative masslike lesion with post obstructive pneumonia. Assessment * Infiltrative masslike lesion in right upper lobe? Malignancy fungal infection /TB * Right paratracheal lymph node measuring 3.4 x 3.8 cm. * Post obstructive pneumonia * A. fib status post AV miriam ablation * Status post pacemaker and AICD * Rheumatoid arthritis * Obstructive sleep apnea on CPAP * Hypertension * Acute diarrheanoninfectious and likely due to recent antibiotic Plan * Continue TRC nebs [id number] * Maintain oxygen saturation above 92% * Patient has been afebrile for the past 48 hours * Continue IV Unasyn for post obstructive pneumonia and consider switching to by mouth Augmentin 875 mg twice a day on discharge * Sputum culture was not collected due to inadequate sample production * Blood cultures show no growth after 1 day * IRGA/quantiferon Tests results pending * Rapid flu has been negative * Awaiting pulmonology evaluation. Patient will need extensive workup/biopsy for the questionable mass and lymph node seen on CT. This can be done as outpatient if pulmonology gives clearance for discharge * Patient states that he has had intermittent episodes of diarrhea for the last few months. His C. difficile test was negative so will start loperamide when necessary for diarrheal episodes * Continue all other home medications * Heart healthy diet * Pain pathway * DVT ppt: Xarelto * Full code. Problem List: 1. Pneumonia 2. COPD (chronic obstructive pulmonary disease) 3. Atrial fibrillation 4. Rheumatoid arthritis 5. Hypertension 6. COPD exacerbation Pain Ratin Pain Location: None Pain Goal: Remain pain free Pain Plan: Tylenol when necessary Tomorrow's Labs & Rationales: None needed DVT/Prophylaxis: pharmacological Kell Farrell 08/03/17 1416: Attending MD Review Statement Attending Statement Attending MD Statement: examined this patient, discuss w/resident/PA/DIRECTOR OF RELIGIOUS ACTIVITIES, agreed w/resident/PA/DIRECTOR OF RELIGIOUS ACTIVITIES, reviewed EMR data (avail), discussed with nursing Attending Assessment/Plan: Patient seen and examined at bedside. Discussed with patient the care plan. Patient admitted with post obstructive pneumonia secondary to possible lung mass that is ? Malignancy. Discussed with deputy jailer the care plan. Patient will be discharged on by mouth antibiotics today home and will follow-up with pulmonology clinic tomorrow morning to set up bronchoscopy to further evaluate the etiology. Patient will be switched to Lovenox from his home Xarelto in preparation for biopsy and bronchoscopy. Patient was encouraged to quit smoking. His C. difficile sent yesterday came back as negative and his diarrhea has stopped after he was given a dose of Imodium.
[2017-08-03 08:57] VITALS: BP 132/84
[2017-08-03] MEDS ORDERED: AUGMENTIN 875-1 EACH PO ×3 (09:45→13:58)
[2017-08-03] MEDS ORDERED: LOPERAMIDE2 M2 PO ×2 (09:45→13:58)
--- NOTE | 2017-08-03 09:48 | Patient Discharge Instructions ---
Discharge Instructions General Discharge Information You were seen/treated for: Pneumonia and lung mass Watch for these problems: Worsening shortness of breath or fevers Special Instructions: 1. Follow-up with your primary care provider, Dr. Campbell and manager women Dr. Gant within 1 week of discharge. Diet Continue normal diet: No Recommended Diet: Heart Healthy Activity Full Activity/No Limits: No Activity Self Limited: Yes Acute Coronary Syndrome Inclusion Criteria At DC or during hospital stay patient has or had the following: ACS DIAGNOSIS No Discharge Core Measures Meds if any: Prescribed or Continued at Discharge Meds if any: NOT Prescribed or Continued at Discharge Congestive Heart Failure Inclusion Criteria At DC or during hospital stay patient has or had the following: CHF DIAGNOSIS No Discharge Core Measures Meds if any: Prescribed or Continued at Discharge Meds if any: NOT Prescribed or Continued at Discharge Cerebrovascular accident Inclusion Criteria At DC or during hospital stay patient has or had the following: CVA/TIA Diagnosis No Discharge Core Measures Meds if any: Prescribed or Continued at Discharge Meds if any: NOT Prescribed or Continued at Discharge Venous thromboembolism Inclusion Criteria VTE Diagnosis No VTE Type NONE VTE Confirmed by (Test) NONE Discharge Core Measures - Per Current guidelines, there needs to be overlap - treatment for the first 5 days of Warfarin therapy. - If discharged on Warfarin prior to 5 days of - overlap therapy, the patient will need to be - assessed for post discharge needs including - *Post discharge parental anticoagulation - *Warfarin and/or parental anticoagulation education - *Follow up date to check INR post discharge At least 5 days overlap therapy as Inpatient No Meds if any: Prescribed or Continued at Discharge Note: Overlap Therapy is Warfarin and Anticoagulant Meds if any: NOT Prescribed or Continued at Discharge
--- NOTE | 2017-08-03 12:43 | Cons- Pulmonary ---
General Information and HPI Consulting Request Date of Consult: 08/03/17 Requested By: med team History of Present Illness: This is a 67-year-old male with a medical history of A. fib status post AV node ablation and pacemaker placement on Xeralto, rheumatoid arthritis on chronic prednisone, methotrexate and TNF, hypertension, BPH, COPD not on O2 at home, obstructive sleep apnea intermittent use of BiPAP. Presented to the emergency department after pain referred by his primary care doctor due to concern of his fever and chills. Patient stated that for the past month he has low-grade fever that time between 99.9 and 100.1, he stated that he take 2 tablets of Tylenol which help with his fever and chills, also he reports some night sweating, he stated that he change his diet and due to that he lost 60 pounds within the past 4-6 month, he stated that the due to this fever, chills and night sweats he been feeding week, fatigue and tired. He stated there is no change in his cough pattern but still productive with some white sputum, breathing status. He saw his primary care doctor who sent him to the ED for further evaluation due to concern of joint infection as the patient has his left hip replaced 3-5 years ago and his knee more than 10 years ago. He stated that he is compliant with his home medication. He still actively smoker 1-2 pack per day for the past 50 years. Patient stated that he follow with his supervisor publications production Bayron Alonzo MD, and his quanteferron gold test has been negative He denies chest pain, excessive wheezing, excessive shortness of breath, palpitations, orthopnea, nausea, vomiting, constipation, diarrhea, abdominal pain, hip & knee pain, hematuria, dysuria. In the ED patient received 1 L of normal saline bolus, started on IV ceftriaxone and azithromycin as the CAT scan of the chest showed obstructive pneumonia with a masslike on the right upper lobe with large right lymphadenopathy. Most recent admission to [facility] was in January 2017 for COPD exacerbation that was treated with IV Solu-Medrol and he'll receive additional dose of IV Lasix. Most recent echocardiogram and the cord was in January 2017 with ejection fraction of 65% Allergies/Medications Allergies: Coded Allergies: No Known Allergies (08/01/17) Home Med List: Albuterol Sulfate (Ventolin Hfa) 90 MCG HFA.AER.AD 2 PUF INH Q6-PRN PRN SHORTNESS OF BREATH (Reported) Amoxicillin/Potassium Clav (Augmentin 875-125 Tablet) 875 MG-125 MG TABLET 1 TAB PO BID Pneumonia Carvedilol 6.25 MG TABLET 1 TAB PO BID HEART (Reported) Cholecalciferol (Vitamin D3) 1,000 UNIT TABLET 1 TAB PO DAILY VITAMIN SUPPORT (Reported) Etanercept (Enbrel) 50 MG/ML (0.98 ML) PEN.INJCTR 1 INJ SC QMON RA (Reported) Finasteride 5 MG TABLET 1 TAB PO DAILY PROSTATE (Reported) Fluticasone Propionate/Salme (Advair Hfa 115-21 Mcg Inhaler) 115 MCG-21 MCG/ ACTUATION HFA.AER.AD 2 PUFF INH BID BREATHING PROBLEMS (Reported) Folic Acid 1 MG TABLET 1 TAB PO DAILY SUPPLEMENT (Reported) Furosemide 40 MG TABLET 1 TAB PO DAILY WATER RETENTION (Reported) Loperamide HCl (Loperamide) 2 MG CAPSULE 2 CAP PO Q6 diarrhea Methotrexate 2.5 MG TABLET 6 TAB PO QMON RA (Reported) Multivit-Min/FA/Lycopen/Lutein (Centrum Silver Tablet) 0.4 MG-300 MCG-250 MCG TABLET 1 TAB PO DAILY VITAMIN SUPPORT (Reported) Olmesartan Medoxomil (Benicar) 40 MG TABLET 1 TAB PO DAILY HEART (Reported) Potassium Chloride (Klor-Con M10) 10 MEQ TAB.ER.PRT 1 TAB PO DAILY SUPPLEMENT (Reported) Prednisone 5 MG TABLET 1 TAB PO DAILY STEROID (Reported) Rivaroxaban (Xarelto) 20 MG TABLET 1 TAB PO DAILY BLOOD THINNER (Reported) with food Review of Systems Comments Reports: see HPI. Cardiovascular: Reports: see HPI. Respiratory: Reports: see HPI. GI: Reports: see HPI. Genitourinary: Reports: see HPI. Past History Travel History Traveled to [place] past 21 day No Medical History Blood Transfusion Hx: No Neurological: NONE EENT: NONE Cardiovascular: AFIB, CHF, hypertension Respiratory: COPD, emphysema, pneumonia Gastrointestinal: NONE Hepatic: NONE Renal: NONE Musculoskeletal: rheumatoid arthritis Psychiatric: NONE Endocrine: NONE Blood Disorders: NONE Cancer(s): NONE Surgical History Surgical History: hip replacement, knee replacement Family History Relations & Conditions If Any: Relation not specified for: FH: breast cancer Heart attack Psychosocial History Where Do You Live? Home Who Do You Live With? spouse, child Services at Home: None Primary Language: Danish Smoking Status: Current Everyday Smoker Living Will? yes Functional Ability ADLs Independent: dressing, eating, toileting, bathing. Ambulation: independent Exam & Diagnostic Data Last 24 Hrs of Vital Signs/I&O Vital Signs Date Time Temp Pulse Resp B/P B/P Pulse O2 O2 Flow FiO2 Mean Ox Delivery Rate 08/03 1023 94 Room Air 08/03 0857 70 132/84 08/03 0857 132/84 08/03 0800 95 Room Air 08/03 0633 98.1 70 20 128/80 93 Room Air 08/02 2212 99.3 69 20 122/80 93 Room Air 08/02 2107 72 132/65 08/02 2032 94 Room Air 08/02 1600 95 Room Air 08/02 1502 98.7 72 20 132/64 94 08/02 1434 Room Air 08/02 1433 95 Room Air Intake & Output 08/03 1600 08/03 0800 08/03 0000 Intake Total 600 200 Output Total Balance 600 200 Intake, IV 300 Intake, Oral 300 200 Last 48 Hrs of Labs/Kali: Laboratory Tests 08/02/17 0741: Anion Gap 13, Estimated GFR > 60, BUN/Creatinine Ratio 31.7 H, CBC w Diff NO MAN DIFF REQ, RBC 3.94 L, MCV 93.2, MCH 30.5, MCHC 32.7 L, RDW 15.2 H, MPV 10.1, Gran % 79.1 H, Lymphocytes % 8.3 L, Monocytes % 12.0 H, Eosinophils % 0.6, Basophils % 0, Absolute Granulocytes 8.3 H, Absolute Lymphocytes 0.9 L, Absolute Monocytes 1.2 H, Absolute Eosinophils 0.1, Absolute Basophils 0, TB Test (QFT) Mitogen Pending, TB Test Mitogen - Nil Pending, TB Test Antigen - Nil Pending, TB Test (QFT) Interp Pending 08/01/17 1520: Lactic Acid 1.5 08/01/17 1230: Anion Gap 12, Estimated GFR > 60, BUN/Creatinine Ratio 30.0 H, Glucose 100 H, Lactic Acid 2.1, Calcium 8.9, Magnesium 2.0, Ferritin 157.0, Total Bilirubin 0.7 , AST 17, ALT 24, Alkaline Phosphatase 71, Troponin I < 0.01, C-Reactive Prot, Quant 8.8 H, C-React Prot High Sens > 15.0 H, Hxk-B-[id number] Pept 1270 H, Total Protein 6.4, Albumin 3.1 L, Globulin 3.3, Albumin/Globulin Ratio 0.9 L, TSH 1.370, Thyroxine (T4) 7.8, CBC w Diff NO MAN DIFF REQ, RBC 4.45 L, MCV 92.8 , MCH 30.6, MCHC 33.0, RDW 14.9 H, MPV 10.1, Gran % 82.3 H, Lymphocytes % 6.8 L, Monocytes % 10.0 H, Eosinophils % 0.2, Basophils % 0.7, Absolute Granulocytes 11.4 H, Absolute Lymphocytes 0.9 L, Absolute Monocytes 1.4 H, Absolute Eosinophils 0, Absolute Basophils 0.1 Microbiology 08/02 104 STOOL: Clostridium difficile Toxin A & B - COMP 08/03 23 URINE ROUT: Legionella Antigen - COMP 08/03 23 URINE ROUT: Streptococcus pneumoniae Antigen (M - COMP 08/01 2034 NASOPHARYN: Influenza Virus A & B Rapid Smear - COMP Assessment/Plan Impression/Plan: CT scan LUNGS and PLEURA: [id number] centrilobular and paraseptal emphysema. There are secretions layering along the posterior wall of the trachea and right mainstem bronchus. A spiculated masslike opacity/consolidation in the medial right apex is difficult to precisely measure given its irregular border; it measures approximately 6.9 cm transverse, 6 cm AP and 6 cm craniocaudal. The lesion has irregular extensions to overlying pleura and appears to infiltrate through pleura into the paraspinal fat at the T3 level. There is reticular opacity around the lesion. The right upper lobe bronchus is surrounded and compressed by enlarged lymph nodes and/or infiltrative tumor. There are 0.4 cm and 0.2 cm solid, noncalcified nodules of the right middle lobe (images 280 and 326, series 4). Within the right lower lobe, there are a few nodules ranging in size from 0.1 cm to 0.4 cm (images 227, 310 and 429, series 4). Small focus of mild pleural thickening of the left major fissure likely represents a perifissural lymph node (image 223, series 4). MEDIASTINUM: Dual-chamber cardiac pacing lead/ICD in place. The heart size is normal. Atherosclerotic calcification of coronary arteries and thoracic aorta without aortic aneurysm. Pulmonary arteries are normal in caliber. Trace pericardial effusion. The esophagus and thyroid gland are unremarkable. LYMPHATICS: No axillary lymphadenopathy. Large hilar lymph nodes surround and compressed the bronchus of the right upper lobe. At and above the level of the aortic arch, a large paratracheal lymph node measures 3.4 cm transverse, 3.8 cm AP. CHEST WALL/BONES: A nonaggressive sclerotic focus in the inferior left scapula is unchanged compared to 02/08/2013. There are no suspicious osseous lesions within the thorax. No acute findings within the degenerated thoracic spine. ABDOMEN AND PELVIS - HEPATOBILIARY: Multiple simple cysts of the liver. Calcified granuloma within the liver, as well. Cholelithiasis. No intrahepatic or extrahepatic bile duct dilatation. PANCREAS: Unremarkable. SPLEEN: Unremarkable. ADRENAL GLANDS: Unremarkable. KIDNEYS, URETERS, BLADDER: No nephrolithiasis or hydronephrosis. Simple cysts of water attenuation of both kidneys, largest of the upper pole measuring 5.6 cm transverse. Also, there are a few indeterminate, hyperdense cortical lesions which are probably hyperdense cysts, but unable to exclude a solid renal mass. For example, there is a 1.7 cm hyperdense, exophytic lesion of the posterior left upper pole that has attenuation of approximately 60 Hounsfield units (image 65, series 2) and 1.1 cm hyperdense lesion of the left lower pole, attenuation of approximately 30 HU (image 83, series 2). The ureters are unremarkable. No evidence of bladder mass. GI TRACT AND PERITONEUM: Bowel loops are normal in caliber. Appendix is normal. No inflammation or obstruction along the gastrointestinal tract. No ascites or pneumoperitoneum. ABDOMINAL WALL: No significant findings. VASCULAR: Atherosclerotic calcification of the abdominal aorta without aneurysm. LYMPH NODES: No pathologic sized lymph nodes within the abdomen or pelvis. PELVIC VISCERA: Prostate gland, which is normal in size, has calcifications. There is an old cystic focus of water attenuation around the urethra inferior to the apex of the prostate gland. No pelvic free fluid. OSSEOUS STRUCTURES: Streak artifact is produced by the metallic components of the left total hip arthroplasty. Multilevel facet arthropathy and disc degeneration of the lumbar spine. No aggressive osseous lesions. IMPRESSION: 1. Pulmonary emphysema. 2. Right upper lobe bronchus is occluded by the surrounding lymphadenopathy and/or tumor. The spiculated masslike opacity in the right upper lobe could represent a combination of infiltrative tumor and postobstructive pneumonia. The lesion infiltrates into the adjacent pleura and appears to invade through pleura into paraspinal fat at the T3 level. A large right paratracheal lymph node measures 3.4 x 3.8 cm. Scattered, small nodules are present in the right lung. No pleural effusion. 3. No evidence of metastatic disease within the abdomen or pelvis. 4. Atherosclerotic disease of coronary arteries and aorta without aortic aneurysm. 5. Multiple hepatic and renal cysts. Also, there are a few hyperdense renal cortical lesions that are probably hyperdense cysts, but are not fully characterized on this examination. Solid renal masses are not excluded. 6. Cholelithiasis. DICTATED BY: Benjy Cristobal MD DATE/TIME DICTATED:08/01/171416 SIGNIFICANT DATA Previous lower extremity arterial ultrasound negative Bone density osteopenia Creatinine normal Hemoglobin 12.0 platelets 255 white count 10.4 with 79% segs previous QuantiFERON test negative multiple times Previous echo showed normal ejection fraction, RV systolic pressure was only about 20 IMPRESSION This is a gentleman with multiple than [id number] smoker, CT scan suggestive of significant emphysema with clinically seemed to have severe COPD, chronic venous stasis with pedal edema, paroxysmal atrial fibrillation on Xeralto on multiple medications for heart rate control, previous history of tachycardia induced cardiomyopathy, previous atrial fibrillation status post AV miriam ablation with dual-chamber pacemaker, Obstructive sleep apnea, morbid obesity with recent significant weight loss, very severe rheumatoid arthritis on methotrexate, Enbrel, low-dose prednisone, BPH, hypertension, atrial fibrillation on xeralto now has * Large right upper lobe endobronchial lesion with significant lymphadenopathy in the hilum and right paratracheal area highly suggestive of lung cancer in a high-risk patient ([id number] smoker, significant COPD, rheumatoid arthritis on Enbrel, methotrexate and prednisone) * Postobstructive atelectasis with a low-grade temperature. Probable bacterial pneumonia but seems less likely. However patient is immunosuppressed. ( Previous QuantiFERON gold test has been negative multiple times unlikely this is TB or fungus) * Severe emphysema noted in his CT scan and clinically does seem to have severe COPD. Patient is not on oxygen at this present time and has occasional bronchospasm, has shortness of breath on [id number] exertion. * Previous tachycardia-induced cardiomyopathy now with recovered ejection fraction, paroxysmal atrial fibrillation now status post AV miriam ablation with biventricular pacer and AICD, now has recovered his ejection fraction. * Obstructive sleep apnea on CPAP * No significant pulmonary hypertension as noted in his recent echo * Significant rheumatoid arthritis on triple therapy. (Enbrel, methotrexate, prednisone) * Proximal atrial fibrillation now on Xeralto * Hypertension, hyperlipidemia, morbid obesity, chronic venous insufficiency with lower extremity edema which is well controlled at this time * Recent diarrhea may be antibiotic induced Recommendation * Mr. Dillon would need a bronchoscopy and endobronchial ultrasound-guided biopsy of his lymphadenopathy. This will be arranged in the future. Patient needs to come off his Xeralto at this time and should be switched to Lovenox 1 mg per KG body weight every 12 hours * Switch to by mouth antibiotic for another 4 days * Start spiriva one puff daily and cont his advair upon dc * COnt 5 mg prednisone * Sputum culture if any * Check stool for C. difficile * Smoking cessation counseling done * Reduce his nicotine patch 7 mg * Continue his heart rate control medications * Keep his potassium on 4 * Start by mouth potassium daily 40 mEq with his Lasix * Patient can be discharged and he will have this bronchoscopy arranged as an outpatient * Patient would need a PET scan and MRI of the head in the future * Hold his Enbrel, continue methotrexate and prednisone. * Please inform Dr. Alonzo tomorrow regarding his current clinical situation Prognosis guarded Consult Acknowledgment - Thank you for your consult request.
[2017-08-03] MEDS ORDERED: SPIRIVA18 MCG INH ×2 (13:30→13:58)
[2017-08-03] MEDS ORDERED: LOVENOX120 MG/0.1 SC ×2 (13:40→13:58)
[2017-08-03] MEDS ORDERED: NICOTINE PATCH1 EAC1 TOP ×2 (13:55→13:58)
--- NOTE | 2017-08-05 17:15 | Discharge Summary ---
Visit Information Visit Dates Admission Date: 08/01/17 Discharge Date: 08/03/17 Hospital Course Course Attending Physician: Amandeep Downey MD Primary Care Physician: Aiden Campbell MD Hospital Course: 67-year-old male with a medical history of A. fib status post AV node ablation and pacemaker placement on Xeralto, rheumatoid arthritis on chronic prednisone, methotrexate and TNF, hypertension, BPH, COPD not on O2 at home, obstructive sleep apnea intermittent use of BiPAP. Presented to ED for evaluation low-grade fevers, night sweats and chills for the past [address] was obtained in ER which showed infiltrative masslike lesion with post obstructive pneumonia. In the ED patient received 1 L of normal saline bolus, started on IV ceftriaxone and azithromycin as the CAT scan of the chest showed obstructive pneumonia with a masslike on the right upper lobe with large right lymphadenopathy. Problem list * Infiltrative masslike lesion in right upper lobe. Malignancy fungal infection/ TB * Right paratracheal lymph node measuring 3.4 x 3.8 cm. * Post obstructive pneumonia * A. fib status post AV miriam ablation * Status post pacemaker and AICD * Rheumatoid arthritis * Obstructive sleep apnea on CPAP * Hypertension * Acute diarrheanoninfectious and likely due to recent antibiotic Hospital course: Patient was admitted to the [facility] floor and and treated with IV fluids and IV Unasyn for suspected postobstructive pneumonia.Mass like lesion was suspected to be malignancy/ TB /fungal infection. Oxygen saturations were maintained above 92%. TRC nebs were continued [id number]. Flu test was negative, blood and sputum cultures remained negative. Patient remained afebrile on the floors. IRGA/quantiferon Tests was sent to rule out TB(pending at this time of discharge). However he had a Quanteferron test done with his hot bread baker Dr. Alonzo which was negative in the past. He was evaluated by pulmonology who felt that the patient needed extensive workup for his for the masslike lesion seen on lung CT and the paratracheal lymph node. He would require a bronchoscopy and endobronchial ultrasound-guided biopsy of his lymphadenopathy which could be pursued as an outpatient. He needs to come off his Xeralto at this time and should be switched to Lovenox 1 mg per KG body weight every 12 hours. Since patient improved with IV antibiotics and remained stable during hospitalization he was discharged on by mouth antibiotics with instructions to follow up with junior underwriter. He also had some episodes of diarrhea which were intermittent while in the hospital. CT was negative and patient was started on loperamide as needed for it. All the home medications were continued. * Heart healthy diet * Pain pathway * DVT ppt: Xarelto * Full code. Allergies: Coded Allergies: No Known Allergies (08/01/17) Disposition Summary Disposition Principal Diagnosis: Post obstructive pneumonia likely secondary to mass ? Malignancy Additional Diagnosis: * Infiltrative masslike lesion in right upper lobe most likely lung cancer/ malignant. * A. fib status post AV miriam ablation * Status post pacemaker and AICD * Rheumatoid arthritis * Obstructive sleep apnea on CPAP * Hypertension * Acute diarrheanoninfectious and likely due to recent antibiotic Discharge Disposition: home or self care Discharge Instructions General Discharge Information Code Status: Full Code Patient's Diet: Heart Healthy Patient's Activity: as tolerated Follow-Up Instructions/Appts: 1. Follow-up with your primary care provider, Dr. Campbell and junior underwriter Dr. Gant within 1 week of discharge Medications at Discharge Discharge Medications: Stop taking the following medications: Rivaroxaban (Xarelto) 20 MG TABLET ORAL DAILY Qty = 90 Etanercept (Enbrel) 50 MG/ML (0.98 ML) PEN.INJCTR Inject into fatty tissue EVERY FRIDAY Qty = 12 Continue taking these medications: Finasteride (Finasteride) 5 MG TABLET 1 Tablet ORAL DAILY Qty = 90 Comments: Last Taken: 08/03/17 Time: 0900 AM Carvedilol (Carvedilol) 6.25 MG TABLET 1 Tablet ORAL TWICE DAILY Qty = 180 Comments: Last Taken: 08/03/17 Time: 0900 AM Fluticasone Propionate/Salme (Advair Hfa 115-21 Mcg Inhaler) 115 MCG-21 MCG/ ACTUATION HFA.AER.AD 2 PUFF Inhale through mouth TWICE DAILY Comments: Last Taken: 08/03/17 Time: 0900 AM SYMBICORT GIVEN SUBSTITUTE Multivit-Min/FA/Lycopen/Lutein (Centrum Silver Tablet) 0.4 MG-300 MCG-250 MCG TABLET 1 Tablet ORAL DAILY Comments: Last Taken: 08/03/17 Time: 0900 AM Folic Acid (Folic Acid) 1 MG TABLET 1 Tablet ORAL DAILY Qty = 90 Comments: Last Taken: 08/03/17 Time: 0900 AM Furosemide (Furosemide) 40 MG TABLET 1 Tablet ORAL DAILY Qty = 90 Comments: Last Taken: 08/02/17 Time: 2 PM Methotrexate (Methotrexate) 2.5 MG TABLET 6 Tablet ORAL EVERY FRIDAY Qty = 72 Comments: NOT GIVEN IN HOSPITAL Olmesartan Medoxomil (Benicar) 40 MG TABLET 1 Tablet ORAL DAILY Qty = 90 Comments: Last Taken: 08/03/17 Time: 0900 AM LOSARTAN GIVEN SUBSTITUTE Potassium Chloride (Klor-Con M10) 10 MEQ TAB.ER.PRT 1 Tablet ORAL DAILY Qty = 90 Comments: Last Taken: 08/03/17 Time: 0900 AM Prednisone (Prednisone) 5 MG TABLET 1 Tablet ORAL DAILY Qty = 120 Comments: Last Taken: 08/03/17 Time: 0900 AM Albuterol Sulfate (Ventolin Hfa) 90 MCG HFA.AER.AD 2 Puff Inhale through mouth EVERY 6 HOURS NEEDED as needed for SHORTNESS OF BREATH Qty = 18 Comments: Last Taken: 02/05/17 Time: 10:00 PM Cholecalciferol (Vitamin D3) 1,000 UNIT TABLET 1 Tablet ORAL DAILY Comments: NOT GIVEN IN HOSPITAL Start taking the following new medications: Tiotropium [place] (Spiriva) 18 MCG CAP.W.DEV 1 Capsule Inhale through mouth DAILY Qty = 30 No Refills Instructions: . Amoxicillin/Potassium Clav (Augmentin 875-125 Tablet) 875 MG-125 MG TABLET 1 Tablet ORAL TWICE DAILY Qty = 9 No Refills Instructions: . Nicotine (Nicotine Patch) 7 MG/24 HOUR PATCH.TD24 1 Patch On the skin DAILY Qty = 30 No Refills Instructions: . Enoxaparin Sodium (Lovenox) 120 MG/0.8 ML SYRINGE 120 Milligram Inject into fatty tissue TWICE DAILY Qty = 60 No Refills Instructions: . Loperamide HCl (Loperamide) 2 MG CAPSULE 2 Capsule ORAL EVERY SIX HOURS Qty = 30 No Refills Instructions: . Copies To: Stalin BAEZ,Hardy Singh Attending MD Review Statement Documenting Attending: Kell Farrell MD Other Findings: Agree with the dc plan. Pt will f/u with pulmonary clinic to setup for brochoscopy and biopsy. pt was swtiched from xarelto to lovenox prior to discharge for possible biopsy.
== END 2017-08-03 14:17 | DRG 194 ==
LOC: ERH 10:51 → ERHI 18:35 → ENRESERV 19:34 → 2NA 21:13 → ENTRNSPT 08-03 14:07 → EDTRNSPT 08-03 14:09 → EDTRNSPTSTS 08-03 14:09 → EDTRNSPT 08-03 14:11 → 2NA 08-03 14:17 → CMPTRNSPT 08-03 14:23
PROVIDERS: Physician Assistant; Student in an Organized Health Care Education/Training Program
DX: J18.1 Lobar pneumonia, unspecified organism (principal); I50.32 Chronic diastolic (congestive) heart failure; I48.2 Chronic atrial fibrillation; E66.01 Morbid (severe) obesity due to excess calories; I11.0 Hypertensive heart disease with heart failure; Z79.01 Long term (current) use of anticoagulants; Z95.0 Presence of cardiac pacemaker; M06.9 Rheumatoid arthritis, unspecified; I10 Essential (primary) hypertension; N40.0 Benign prostatic hyperplasia without lower urinary tract symptoms; Z79.51 Long term (current) use of inhaled steroids; Z79.52 Long term (current) use of systemic steroids; K80.20 Calculus of gallbladder without cholecystitis without obstruction; I25.10 Atherosclerotic heart disease of native coronary artery without angina pectoris; F17.210 Nicotine dependence, cigarettes, uncomplicated; R63.4 Abnormal weight loss; Z96.642 Presence of left artificial hip joint; Z96.652 Presence of left artificial knee joint; G47.33 Obstructive sleep apnea (adult) (pediatric); Z68.39 Body mass index [BMI] 39.0-39.9, adult; I87.2 Venous insufficiency (chronic) (peripheral); K52.9 Noninfective gastroenteritis and colitis, unspecified; R91.8 Other nonspecific abnormal finding of lung field
CPT/HCPCS: 2NAP; 86480; 36592; 71046; 74177; 82436; 87040; 87070; 87449; 87450; 87804; 87804-59; 93005; 93010; J0696; J1650; J3490; J7512

== ENCOUNTER → 2017-08-27 | Day surgery (SDC) | payer OTHER ==
[~2017-08-27] VITALS: Ht 182.9 cm; Wt 127.5 kg
[~2017-08-27] MED LIST changes: +AUGMENTIN 875-1 EACH PO; +CLOTRIMAZOLE15 GM TOP; +LOPERAMIDE2 M2 PO; +LOVENOX120 MG/0.1 SC; +NICOTINE PATCH1 EAC1 TOP; +NYSTATIN15 G2 TOP; +PROCHLORPERAZIN10 MG PO; +SPIRIVA18 MCG INH; +TAMSULOSIN HCL0.4 M1 PO; +TRAMADOL HCL50 M1 PO
--- NOTE | 2017-08-27 12:48 | Operative Report ---
Operative/Inv Procedure Report Surgery Date: 08/27/17 Name of Procedure: Fluoroscopic-guided insertion of tunneled portacath via R subclavian vein. Pre-Operative Diagnosis: Lung cancer Post-Operative Diagnosis: Same Estimated Blood Loss: scant Surgeon/Washcloth Folder: Sofi BAEZ,Frederick Caballero Anesthesia: local monitored anesthesi Operative/Procedure Note Note: With the patient supine on the OR table, right arm tucked, head not turned, after induction of MAC sedation, the patient's right subclavian area, including the shoulder neck and contralateral chest, were prepped and draped in the usual sterile fashion. After injecting local anesthetic in the right infraclavicular area, skin, subcutaneous to the clavicle, and inferiorly where the pocket will be, the patient was repositioned to Trendelenburg. Putting your right index finger on the sternal notch and thumb pressing down lateral to the curve of the clavicle, I made a puncture through the skin with the 15 blade scalpel next to thumb. Then along that line towards the tip of your finger, advance a large- bore needle, bevel towards the feet, on a slip tip 10 mL syringe barrel flat against the deltoid, advancing to bone and then "walking" it down just under the clavicle keeping the needle flat as possible, while maintaining vacuum with the plunger, accessing the subclavian venous blood, then replacing the syringe with a wire, sliding in with minimum resistance, confirming the position with the C- arm fluoroscope, making sure the wire is traveling down along the cava towards the right side of the heart and not up or across, and no ectopy. Next I secured the wire to the drape, measured (approximately 23 cm), cut and attached the catheter to the port. Approximately 3-4 cm inferior to the stick site a 2-1/2 cm long skin incision was made with a 15 blade scalpel along Langers lines. It was deepened with cautery and a space was developed inferiorly under the subcutaneous layer. The Port-A-Cath was laid in there and secured in [address] with 2-0 Prolene through the holes in the port, the sutures were kept loose on snaps at this point. Next the catheter was tunneled up subcutaneously with a snap and brought out through the stick site next to the wire. Then the dilator only, was passed over the wire until you could feel it slide under the clavicle, then removed, then re-advanced this time with the peel-away sheath over it, while advancing simultaneously pull the dilator out and advance the sheath, eventually pulling out the dilator and wire completely. Then the catheter was put into the sheath as far as it'll go then while holding that knuckle down with DeBakey's, gently peel-away the sheath with your podiatric assistant. Now the correct position of the catheter was confirmed with the fluoroscope, using a Talavera needle and heparinized saline solution, the catheter was first aspirated then flushed with approximately 3 mL's, with minimal resistance. The patient was repositioned to neutral, after tying down the 2 Prolenes, the larger incision was closed in layers, 3-0 Vicryl deep and 4-0 subcuticular Monocryl for the skin, and one subcuticular Monocryl for the stick site. Both areas were covered with Mastisol Steri-Strips Telfa and Tegaderm. Chest x-ray was ordered to be done in the recovery room. Lap and sponge counts were correct. Wound expectancy was clean, IV fluids crystalloid, complications none, patient tolerated the procedure well was awakened and returned to the recovery room in satisfactory condition.
--- NOTE | 2017-08-27 13:19 | RADIOLOGY REPORT ---
EXAMINATION: XR PORTABLE CHEST CLINICAL INFORMATION: Status post port placement. Pneumothorax. COMPARISON: Chest CT 08/01/2017. TECHNIQUE: Portable frontal view of the chest was obtained. FINDINGS: There has been interval placement of a right chest wall IJ port which is in expected position. The catheter tip overlies the SVC. No definite pneumothorax is seen however an ill-defined mass in the right upper lobe partly obscures the lung apex. The remaining lungs are clear. No pleural effusion. There is a left chest wall AICD with lead tips in the right atrium and right ventricle. The osseous structures are grossly intact. IMPRESSION: Interval placement of a right IJ port with tip overlying the SVC. No evidence of pneumothorax. Redemonstration of ill-defined mass in the right upper lobe.
--- NOTE | 2017-08-28 10:50 | RADIOLOGY REPORT ---
EXAMINATION:\H\ \N\XR FLUOROSCOPY ASSISTANCE AT THE TIME OF PORT-A-CATH PLACEMENT CLINICAL INFORMATION: 67-year-old male for Port-A-Cath placement. COMPARISON: None TECHNIQUE AND FINDINGS: Fluoroscopy assistance is provided at the time of the Port-A-Cath insertion. Single spot radiograph was obtained at the time of the procedure. Fluoroscopy time: 0.1 minutes. IMPRESSION: Fluoroscopic assistance is provided at the time of the Port-A-Cath placement. Full procedural detail will be dictated by Dr. Farah.
== END ==
LOC: STS 08-26 01:11
DX: C34.90 Malignant neoplasm of unspecified part of unspecified bronchus or lung (principal); J44.9 Chronic obstructive pulmonary disease, unspecified; Z87.891 Personal history of nicotine dependence; I48.91 Unspecified atrial fibrillation; Z79.01 Long term (current) use of anticoagulants; Z95.810 Presence of automatic (implantable) cardiac defibrillator; I10 Essential (primary) hypertension
CPT/HCPCS: 71045; C1751; J0131; J0690; J1644; J2250

== ENCOUNTER 2017-09-01 16:37 | Emergency (ER) | payer OTHER ==
[~2017-09-01] VITALS: Ht 182.9 cm; Wt 130.2 kg
[~2017-09-01 16:37] MED LIST changes: -CLOTRIMAZOLE15 GM TOP; -NYSTATIN15 G2 TOP; -PROCHLORPERAZIN10 MG PO; -TAMSULOSIN HCL0.4 M1 PO; -TRAMADOL HCL50 M1 PO
--- NOTE | 2017-09-01 18:06 | ED GENERAL ADULT ---
History of Present Illness General Chief Complaint: Lower Extremity Problems Stated Complaint: SENT IN BY MARIZA FOR SURGERY Source: patient Exam Limitations: no limitations Vital Signs & Intake/Output Vital Signs & Intake/Output Vital Signs Date Time Temp Pulse Resp B/P B/P Pulse O2 O2 Flow FiO2 Mean Ox Delivery Rate 09/01 2018 98.0 80 18 118/68 99 Room Air 09/01 1839 98.3 75 18 129/70 93 Room Air ED Intake and Output 09/02 0000 09/01 1200 Intake Total Output Total Balance Patient 287 lb Weight Weight Reported by Patient Measurement Method Allergies Coded Allergies: No Known Allergies (08/01/17) Reconcile Medications Albuterol Sulfate (Ventolin Hfa) 90 MCG HFA.AER.AD 2 PUF INH Q6-PRN PRN SHORTNESS OF BREATH (Reported) Carvedilol 6.25 MG TABLET 1 TAB PO BID HEART/BP (Reported) Cholecalciferol (Vitamin D3) 1,000 UNIT TABLET 1 TAB PO DAILY VITAMIN SUPPORT (Reported) Finasteride 5 MG TABLET 1 TAB PO DAILY PROSTATE (Reported) Folic Acid 1 MG TABLET 1 TAB PO DAILY SUPPLEMENT (Reported) Furosemide 40 MG TABLET 1 TAB PO DAILY WATER RETENTION (Reported) Multivit-Min/FA/Lycopen/Lutein (Centrum Silver Tablet) 0.4 MG-300 MCG-250 MCG TABLET 1 TAB PO DAILY VITAMIN SUPPORT (Reported) Olmesartan Medoxomil (Benicar) 40 MG TABLET 1 TAB PO DAILY HEART (Reported) Potassium Chloride (Klor-Con M10) 10 MEQ TAB.ER.PRT 1 TAB PO DAILY SUPPLEMENT (Reported) Prednisone 5 MG TABLET 1 TAB PO DAILY STEROID (Reported) Rivaroxaban (Xarelto) 20 MG TABLET 1 TAB PO DAILY BLOOD THINNER (Reported) with food Tiotropium [place] (Spiriva) 18 MCG CAP.W.DEV 1 CAP INH DAILY COPD . Triage Note: PT TO ER SENT BY DR. DAWKINS FOR SURGICAL EVAL TO LEFT LOWER LEG HEMATOMA SUSTAINED AFTER STRIKING LEG ON CHAIR 2 DAYS AGO. TAKES XARELTO DAILY. PT CURRENTLY IN TREATMENT FOR LUNG CA. Triage Nurses Notes Reviewed? yes Onset: Abrupt Duration: day(s): (3), constant, continues in ED, getting worse Timing: single episode today Injury Environment: home Severity: moderate, severe Severity Numbers: 5 No Modifying Factors: none HPI: 67-year-old male past medical history of atrial fibrillation on xarelto, COPD, lung cancer presents for evaluation of a hematoma to his left lower extremity. Patient states that he bumped his left anterior lower leg on a chair 2 or 3 days ago. A quarter size hematoma formed. He was without a drain today by Dr. Dawkins however today it increased in size to the size of a grapefruit. Patient stated there is mildly painful he is able to walk is been no fever no discharge. Patient stopped his anticoagulant 3 days ago because he had a Port-A-Cath placed for chemotherapy infusions that he'll be starting soon. He denies any fever and numbness tingling or any other associated symptoms. No chest pain or shortness of breath. (Kuldeep Early) Past History Travel History Traveled to [place] past 21 day No Medical History Any Pertinent Medical History? see below for history Neurological: NONE EENT: NONE Cardiovascular: AFIB, cardiomyopathy, CHF, hypertension Respiratory: COPD, emphysema, obstructive sleep apnea, pneumonia Gastrointestinal: NONE Hepatic: NONE Renal: NONE Musculoskeletal: rheumatoid arthritis Psychiatric: NONE Endocrine: NONE Blood Disorders: NONE Cancer(s): NONE History of MRSA: No History of VRE: No History of CDIFF: No Influenza Vaccine: 02/26/10 Surgical History Surgical History: hip replacement, knee replacement Psychosocial History Who do you live with Family Services at Home None What is your primary language Hungarian Tobacco Use: Quit >30 days ago Family History Family History, If Any: Relation not specified for: FH: breast cancer Heart attack Hx Contributory? No (Kuldeep Early) Review of Systems Review of Systems Constitutional: Reports: no symptoms. EENTM: Reports: no symptoms. Respiratory: Reports: no symptoms. Cardiovascular: Reports: no symptoms. GI: Reports: no symptoms. Genitourinary: Reports: no symptoms. Musculoskeletal: Reports: no symptoms. Skin: Reports: no symptoms. Neurological/Psychological: Reports: no symptoms. Hematologic/Endocrine: Reports: see HPI (hematoma ). Immunologic/Allergic: Reports: no symptoms. All Other Systems: Reviewed and Negative (Kuldeep Early) Physical Exam Physical Exam General Appearance: well developed/nourished, no apparent distress, alert, awake Head: atraumatic, normal appearance Eyes: Bilateral: normal appearance, EOMI. Ears, Nose, Throat: hearing grossly normal Neck: normal inspection, supple, full range of motion Respiratory: normal breath sounds, chest non-tender, no respiratory distress, lungs clear Cardiovascular: regular rate/rhythm, normal peripheral pulses Peripheral Pulses: 2+ radial (R), 2+ radial (L) Gastrointestinal: soft, non-tender Back: normal inspection, normal range of motion, no vertebral tenderness Extremities: normal range of motion, no edema, there is a very large greater than 8 cm diameter superficial hematoma located on the left lower extremity. Mild amount of surrounding erythema but no warmth no purulent discharge. No crepitus. Full range of motion of the left lower hartmann is intact neurovascular supply intact Neurologic/Psych: no motor/sensory deficits, awake, alert, oriented x 3, normal gait Skin: intact, normal color, warm/dry Lymphatic: no anterior cervical sonja Core Measures ACS in differential dx? No CVA/TIA Diagnosis: No Sepsis Present: No Sepsis Focused Exam Completed? No (David SCALES,Kuldeep) Progress Differential Diagnoses I considered the following diagnoses in my evaluation of the patient: [Hematoma, abscess, coagulopathy, thrombocytopenia, necrotizing fasciitis] Plan of Care: Orders Procedure Date/time Status TROPONIN LEVEL 09/01 1750 Complete PARTIAL THROMBOPLASTIN TIME 09/01 1750 Complete PROTHROMBIN TIME 09/01 1750 Complete COMPREHENSIVE METABOLIC PANEL 09/01 1750 Complete CBC WITHOUT DIFFERENTIAL 09/01 1750 Complete EKG 09/01 1750 Active TYPE & SCREEN (NOT X-MATCH) 09/01 1750 Complete Laboratory Tests 09/01/17 1806: Anion Gap 10, Estimated GFR > 60, BUN/Creatinine Ratio 28.6 H, Glucose 81, Calcium 8.7, Total Bilirubin 0.7, AST 16 L, ALT 18 L, Alkaline Phosphatase 67, Troponin I < 0.01, Total Protein 6.1 L, Albumin 3.1 L, Globulin 3.0, Albumin/ Globulin Ratio 1.0 L, PT 15.5 H, INR 1.42 H, APTT 34, CBC w Diff NO MAN DIFF REQ, RBC 4.56 L, MCV 92.5, MCH 29.9, MCHC 32.3 L, RDW 15.6 H, MPV 10.7 H, Gran % 67.7, Lymphocytes % 14.7 L, Monocytes % 15.6 H, Eosinophils % 1.8, Basophils % 0.2, Absolute Granulocytes 7.8 H, Absolute Lymphocytes 1.7, Absolute Monocytes 1.8 H, Absolute Eosinophils 0.2, Absolute Basophils 0 Patient seen and evaluated. He is here with a large hematoma left lower extremity. He was sent in by Dr. Dawkins for surgical evaluation. We'll check basic labs will talk with surgery. Blood work shows a mildly elevated white blood cell count of 11.4. Remaining blood work does not show any significant changes. Chest x-ray is clear. EKG does not show any acute changes. PT WAS SEEN BY DR JUNG IN THE ED. HE RECCOMENDED HOLDING XARELTO AND APPLYING XEROFORM DRESSING. DR JUNG WILL THEN SEEN HIM ANTHONY ORROW. DRESSING APPLIED. KEEP THE AREA CLEAN AND DRY. DISCUSSED RETURN PRECAUTIONS IN DETAIL. Diagnostic Imaging: Viewed by Me: Radiology Read. Discussed w/RAD: Radiology Read. CXR Impression: PATIENT: JUAN DANIEL ZHU PRESENT AGE: 67 PATIENT ACCOUNT NO: [id number] : 48 LOCATION: [facility] ORDERING PHYSICIAN: Kuldeep SCALES SERVICE DATE: 09/01/17 EXAM TYPE: RAD - XRY- PORTABLE CHEST XRAY EXAMINATION: XR PORTABLE CHEST CLINICAL INFORMATION: Pneumonia. Congestive heart failure. COMPARISON: Chest x-ray 08/27/2017 TECHNIQUE: Portable frontal view of the chest was obtained. 6:24 PM FINDINGS: Pacemaker in the right atrium and right ventricle. Central port catheter tip in superior vena cava. There is emphysematous hyperinflation of lungs. There is chronic scarring at the right lung apex stable since prior studies. There is no acute abnormality. No pulmonary vascular congestion. No infiltrate or pleural effusion. There is no pneumothorax. IMPRESSION: No acute abnormality of the chest. DICTATED BY: Dario Walsh MD DATE/TIME DICTATED:09/01/171899 COMMERCIAL INTERIOR DESIGNER:TYLOR DATE/TIME TRANSCRIBED:09/01/171899 CONFIDENTIAL, DO NOT COPY WITHOUT APPROPRIATE AUTHORIZATION. <Electronically signed in Other Vendor System> SIGNED BY: Dario Walsh MD 09/01/171904 Initial ED EKG: VENTRICULAR PACED RHYTHM (Kuldeep Early) Differential Diagnoses I considered the following diagnoses in my evaluation of the patient: (Freddy BAEZ,Jerome Joe) Departure Departure Condition: Stable Clinical Impression Primary Impression: Hematoma Referrals: Shannan BAEZ,Aiden Alvarez (PCP/Family) Sofi BAEZ,Frederick N. Additional Instructions: Follow-up with Dr. JUNG tomorrow as scheduled. Keep it clean and dry. If he notices spreading redness worsening swelling worsening pain in either concerns return immediately. Departure Forms: Customer Survey General Discharge Information (Kuldeep Early) Departure Disposition: HOME OR SELF CARE PA/STAFF RADIATION THERAPIST Co-Sign Statement Statement: ED Attending supervision documentation- [X] I saw and evaluated the patient. I have also reviewed all the pertinent lab results and diagnostic results. I agree with the findings and the plan of care as documented in the PA's/STAFF RADIATION THERAPIST's documentation. [X] I have reviewed the ED Record and agree with the PA's/STAFF RADIATION THERAPIST's documentation. [] Additions or exceptions (if any) to the PAs/STAFF RADIATION THERAPIST's note and plan are summarized below: [] (Freddy BAEZ,Jerome Joe) Critical Care Note Critical Care Note Critical Care Time: non-applicable (Kuldeep Early)
[2017-09-01 18:30] LABS: ABSOLUTE BASOPHIL COUNT 0 /CUMM (0.0-0.2); ABSOLUTE EOSINOPHIL COUNT 0.2 /CUMM (0.0-0.7); ABSOLUTE GRANULOCYTE CT 7.8 /CUMM (1.4-6.5); ABSOLUTE LYMPH COUNT 1.7 /CUMM (1.2-3.4); ABSOLUTE MONOCYTE COUNT 1.8 /CUMM (0.10-0.60); BASOPHIL % 0.2 % (0.0-2.0); EOSINOPHIL % 1.8 % (0-5); GRANULOCYTE % 67.7 % (42.2-75.2); HEMATOCRIT 42.2 % (42-52); MEAN CORPUSCULAR HGB 29.9 PG (27.0-31.0); MEAN CORPUSCULAR HGB CONC 32.3 G/DL (33.0-37.0); MEAN CORPUSCULAR VOLUME 92.5 FL (80.0-94.0); MEAN PLATELET VOLUME 10.7 FL (7.4-10.4); PLATELET COUNT 168 /CUMM (130-400); RBC DISTRIBUTION WIDTH 15.6 % (11.5-14.5); RED BLOOD CELL CT 4.56 /CUMM (4.70-6.10); WHITE BLOOD CELL COUNT 11.4 /CUMM (4.8-10.8)
[2017-09-01 18:36] LABS: PT 15.5 SEC (9.4-12.5); PTT 34 SEC (25-37)
--- NOTE | 2017-09-01 19:05 | RADIOLOGY REPORT ---
EXAMINATION: XR PORTABLE CHEST CLINICAL INFORMATION: Pneumonia. Congestive heart failure. COMPARISON: Chest x-ray 08/27/2017 TECHNIQUE: Portable frontal view of the chest was obtained. 6:24 PM FINDINGS: Pacemaker in the right atrium and right ventricle. Central port catheter tip in superior vena cava. There is emphysematous hyperinflation of lungs. There is chronic scarring at the right lung apex stable since prior studies. There is no acute abnormality. No pulmonary vascular congestion. No infiltrate or pleural effusion. There is no pneumothorax. IMPRESSION: No acute abnormality of the chest.
--- NOTE | 2017-09-01 20:09 | History & Physical Pre-Op ---
General Information and HPI History of Present Illness: to be completed It's intact, soft, sterile, prefer to avoid open wound stop Xarelto now, wrap carefully elevate and see in office tomorrow. Allergies/Medications Allergies: Coded Allergies: No Known Allergies (08/01/17) Home Med list Albuterol Sulfate (Ventolin Hfa) 90 MCG HFA.AER.AD 2 PUF INH Q6-PRN PRN SHORTNESS OF BREATH (Reported) Carvedilol 6.25 MG TABLET 1 TAB PO BID HEART/BP (Reported) Cholecalciferol (Vitamin D3) 1,000 UNIT TABLET 1 TAB PO DAILY VITAMIN SUPPORT (Reported) Finasteride 5 MG TABLET 1 TAB PO DAILY PROSTATE (Reported) Folic Acid 1 MG TABLET 1 TAB PO DAILY SUPPLEMENT (Reported) Furosemide 40 MG TABLET 1 TAB PO DAILY WATER RETENTION (Reported) Multivit-Min/FA/Lycopen/Lutein (Centrum Silver Tablet) 0.4 MG-300 MCG-250 MCG TABLET 1 TAB PO DAILY VITAMIN SUPPORT (Reported) Olmesartan Medoxomil (Benicar) 40 MG TABLET 1 TAB PO DAILY HEART (Reported) Potassium Chloride (Klor-Con M10) 10 MEQ TAB.ER.PRT 1 TAB PO DAILY SUPPLEMENT (Reported) Prednisone 5 MG TABLET 1 TAB PO DAILY STEROID (Reported) Rivaroxaban (Xarelto) 20 MG TABLET 1 TAB PO DAILY BLOOD THINNER (Reported) with food Tiotropium [place] (Spiriva) 18 MCG CAP.W.DEV 1 CAP INH DAILY COPD . Past History Medical History Neurological: NONE EENT: NONE Cardiovascular: AFIB, cardiomyopathy, CHF, hypertension Respiratory: COPD, emphysema, obstructive sleep apnea, pneumonia Gastrointestinal: NONE Hepatic: NONE Renal: NONE Musculoskeletal: rheumatoid arthritis Psychiatric: NONE Endocrine: NONE Blood Disorders: NONE Cancer(s): NONE History of MRSA: No History of VRE: No History of CDIFF: No Influenza Vaccine: 02/26/10 Surgical History Pertinent Surgical History: hip replacement, knee replacement Past Family/Social History Family History Relations & Conditions if any Relation not specified for: FH: breast cancer Heart attack Psychosocial History Who Do You Live With? spouse, child Services at Home None Primary Language: Vietnamese Living Will? yes Functional Ability ADLs Independent: dressing, eating, toileting, bathing. Ambulation: independent
[2017-09-01 20:19] VITALS: BP 118/68
== END 2017-09-01 20:20 ==
LOC: ERH 16:37
PROVIDERS: Physician Assistant Medical
DX: S80.12XA Contusion of left lower leg, initial encounter (principal); W22.03XA Walked into furniture, initial encounter; Y92.009 Unspecified place in unspecified non-institutional (private) residence as the place of occurrence of the external cause; Y93.9 Activity, unspecified
CPT/HCPCS: 71045; 93005; 93010

== ENCOUNTER 2017-11-03 11:04 | Inpatient (IN) | payer OTHER ==
[~2017-11-03] VITALS: Ht 182.9 cm; Wt 134.4 kg
--- NOTE | 2017-11-03 11:39 | ED GENERAL ADULT ---
History of Present Illness General Chief Complaint: Chest Pain Stated Complaint: CHEST PAIN Source: patient Exam Limitations: no limitations Vital Signs & Intake/Output Vital Signs & Intake/Output Vital Signs Date Time Temp Pulse Resp B/P B/P Pulse O2 O2 Flow FiO2 Mean Ox Delivery Rate 11/03 1925 Room Air 11/03 1800 97.0 78 26 122/72 96 Room Air Room Air 11/03 1800 96 Room Air Room Air 11/03 1531 98.9 75 20 119/58 97 Room Air 11/03 1349 98.4 80 20 106/55 100 Room Air Room Air 11/03 1301 98.5 75 20 100/54 98 Room Air Room Air 11/03 1259 96 Room Air Room Air 11/03 1158 98.4 71 20 86/50 96 Room Air Room Air 11/03 1125 98.4 76 18 90/60 97 Room Air Allergies Coded Allergies: No Known Allergies (08/01/17) Reconcile Medications Albuterol Sulfate (Ventolin Hfa) 90 MCG HFA.AER.AD 2 PUF INH Q6-PRN PRN SHORTNESS OF BREATH (Reported) Carvedilol 6.25 MG TABLET 1 TAB PO BID HEART/BP (Reported) Cholecalciferol (Vitamin D3) 1,000 UNIT TABLET 1 TAB PO DAILY VITAMIN SUPPORT (Reported) Clotrimazole 1 % CREAM..G. 1 CLAIRE TOP BID UNKNOWN (Reported) apply to affected area(s) Finasteride 5 MG TABLET 1 TAB PO DAILY PROSTATE (Reported) Folic Acid 1 MG TABLET 1 TAB PO DAILY SUPPLEMENT (Reported) Furosemide 40 MG TABLET 1 TAB PO DAILY WATER RETENTION (Reported) Multivit-Min/FA/Lycopen/Lutein (Centrum Silver Tablet) 0.4 MG-300 MCG-250 MCG TABLET 1 TAB PO DAILY VITAMIN SUPPORT (Reported) Nystatin 100,000 UNIT/GRAM POWDER 1 CLAIRE TOP 4 TIMES/DAY JAEL INFECTION ( Reported) Olmesartan Medoxomil (Benicar) 40 MG TABLET 1 TAB PO DAILY HEART (Reported) Potassium Chloride (Klor-Con M10) 10 MEQ TAB.ER.PRT 1 TAB PO DAILY SUPPLEMENT (Reported) Prednisone 5 MG TABLET 1 TAB PO DAILY STEROID (Reported) Prochlorperazine Maleate 10 MG TABLET 1 TAB PO Q6 PRN NAUSEA/VOMITING ( Reported) Rivaroxaban (Xarelto) 20 MG TABLET 1 TAB PO DAILY BLOOD THINNER (Reported) with food Tamsulosin HCl 0.4 MG CAP.ER.24H 1 CAP PO BID BPH (Reported) Tiotropium [place] (Spiriva) 18 MCG CAP.W.DEV 1 CAP INH DAILY COPD . Tramadol HCl 50 MG TABLET 1 TAB PO Q4 HRS NEEDED PRN PAIN (Reported) Triage Note: PT SENT IN BY DR LEWIS FROM [facility].. PT STATES THAT HE HAD FEVER AND CHILLS OVER THE WEEKEND AND THAT HIS DR SENT HIM IN FOR EVALUATION. PT IS CURRENTLY UNDERGOING CHEMO AND RADIATION FOR LUNG CA. PT TEMP IS 84.4 AND PT STATES THAT HE TOOK TYLENOL AT 2330 LAST NIGHT. Triage Nurses Notes Reviewed? yes Onset: Gradual Duration: day(s): Timing: recent history HPI: 67 year old male [facility] for evaluation of chest pain. Pt does not have chest pain at this time. Pt also reports shortness of breath at this time. Pt is hypotensive at 86/50. and has a kaleigh cath in right upper chest. Patient reports a low-grade fever over the past several days. He was seen and evaluated by Frederick Farah MD this morning for the left ecchymotic lesion to his left anterior leg. He also saw Dr. Diego for consultation for radiation therapy and he was referred to the emergency department. He does report intermittent rigors. ED Sepsis Exam Date of Focused Sepsis Exam: 11/03/17 Time of Focused Sepsis Exam: 1300 Sepsis Cardiac Exam: Regular Rate/Rhythm Sepsis Resp Exam: CTA Sepsis Cap Refill Exam: <2 Sec Sepsis Peripheral Pulse Exam: Normal Sepsis Peripheral Pulse Location: Radial Sepsis Skin Color Exam: Pale Skin Temp/Moisture Exam: Warm/Dry Past History Travel History Traveled to [place] past 21 day No Medical History Any Pertinent Medical History? see below for history Neurological: NONE EENT: NONE Cardiovascular: AFIB, cardiomyopathy, CHF, hypertension Respiratory: COPD, emphysema, obstructive sleep apnea, pneumonia Gastrointestinal: NONE Hepatic: NONE Renal: NONE Musculoskeletal: rheumatoid arthritis Psychiatric: NONE Endocrine: NONE Blood Disorders: NONE Cancer(s): NONE History of MRSA: No History of VRE: No History of CDIFF: No Surgical History Surgical History: hip replacement, knee replacement Psychosocial History Who do you live with Family Services at Home None What is your primary language Latvian Tobacco Use: Quit >30 days ago Family History Family History, If Any: Relation not specified for: FH: breast cancer Heart attack Hx Contributory? No Review of Systems Review of Systems Constitutional: Reports: see HPI. EENTM: Reports: no symptoms. Denies: double vision, visual changes. Respiratory: Reports: short of breath. Denies: see HPI. Cardiovascular: Reports: chest pain (only when drinking). GI: Reports: no symptoms. Genitourinary: Reports: no symptoms. Musculoskeletal: Reports: no symptoms. Skin: Denies: see HPI. Neurological/Psychological: Reports: no symptoms. Hematologic/Endocrine: Reports: bruising (bilateral upper extremities). Physical Exam Physical Exam General Appearance: well developed/nourished, alert, awake, anxious Head: atraumatic, normal appearance Eyes: Bilateral: PERRL, EOMI. Ears, Nose, Throat: normal ENT inspection Neck: normal inspection, supple Respiratory: Crackles at the left base Cardiovascular: regular rate/rhythm Peripheral Pulses: 4+ brachial (R), 4+ brachial (L) Gastrointestinal: soft, non-tender Extremities: bilaterial echamosis to upper extremities Neurologic/Psych: awake, alert, oriented x 3 Skin: ecchymosis (bilateral upper extremities) Core Measures ACS in differential dx? No CVA/TIA Diagnosis: No Sepsis Present: No Sepsis Focused Exam Completed? No Progress Differential Diagnoses I considered the following diagnoses in my evaluation of the patient: [Pulmonary embolism, acute coronary syndrome, pneumonia, pneumothorax, sepsis. Plan of Care: Orders Procedure Date/time Status ICU LAB BUNDLE 11/04 0500 Active CBC WITHOUT DIFFERENTIAL 11/04 0500 Active Heart Healthy Diet 11/03 D Active BLOOD PRODUCT PICKUP 11/03 1933 Active LACTIC ACID 11/03 1929 Active RT: Evaluation 11/03 192 Active Wound Care/Dressing 11/03 172 Complete Turn and Reposition 11/03 172 Active Drains/Tubes 11/03 172 Complete Teach/Educate 11/03 172 Active Skin Integrity Protocol 11/03 172 Active Skin/Pressure Ulcer Assess (Sk 11/03 172 Active Precautions 11/03 1721 Active Pain Treatment and Response 11/03 172 Active Nutritional Intake, Monitor 11/03 172 Active Isolation 11/03 172 Active CIWA 11/03 172 Complete Patient Care Conference 11/03 1721 Active Activity/Ambulation 11/03 172 Active LACTIC ACID 11/03 1629 Complete PLATELET DOSE (5 Units Pooled) 11/03 1615 Active VRE ACTIVE SURVIELLANCE 11/03 1556 Active ACTIVE SURVEILLANCE NARES 11/03 1556 Active BLOOD PRODUCT PICKUP 11/03 1545 Active BLOOD CULTURE 11/03 1534 Active Pathway - chart 11/03 1527 Active House Staff 11/03 1527 Active LEUKOCYTE POOR (PACKED CELLS) 11/03 1446 Active ED Holding Orders 11/03 1351 Active Admit to inpatient 11/03 1351 Active Patient Data 11/03 1351 Active Vital Signs 11/03 1351 Active Code Status 11/03 1351 Active Intake & Output 11/03 1258 Active Add-on Test (ER Only) 11/03 1216 Active CULTURE,URINE 11/03 1216 Active URINALYSIS 11/03 1216 Active TROPONIN LEVEL 11/03 1152 Complete LACTIC ACID 11/03 1152 Complete D-DIMER 11/03 1152 Complete CORTISOL AM 11/03 1152 Complete TYPE & SCREEN (NOT X-MATCH) 11/03 1152 Active BLOOD CULTURE 11/03 1150 Active COMPREHENSIVE METABOLIC PANEL 11/03 1150 Complete CBC WITHOUT DIFFERENTIAL 11/03 1150 Complete Weight 11/03 1148 Active EKG 11/03 1109 Active TRC EVALUATION (GEN) 11/03 UNK Complete THERAPIST ORDERS 11/03 UNK Complete Lab Add-on Test 11/03 UNK Active VTE Mechanical Prophylaxis 11/[address] CHEST W IV CONTRAST 11/[address] ABD & PELVIS W IV CONTRAST 11/03 UNK Active Current Medications Sig/Ta Start time Last Medication Dose Stop Time Status Admin Finasteride 5 MG DAILY 11/04 899 AC (Proscar) Folic Acid 1 MG DAILY 11/04 899 AC (Folic Acid) Furosemide 40 MG DAILY 11/04 899 CAN (Lasix) Losartan Potassium 100 MG DAILY 11/04 899 CAN (Cozaar) Prednisone 5 MG DAILY 11/04 899 CAN Ceftazidime 2,000 MG IQ8 11/04 0000 AC (Fortaz) Hydrocortisone 50 MG Q8 11/030 AC Sodium Succinate (Solucortef) Carvedilol 6.25 MG BID 11/03 2099 AC (Coreg) Vancomycin HCl 1.5 MG Q12 11/03 2099 CAN Vancomycin HCl 1,500 MG Q12 11/03 2100 AC Sodium Chloride 250 ML (Normal Saline 0.9%) Albuterol Sulfate 2 PUF Q4-PRN PRN 11/03 1945 AC (Ventolin) Nystatin 1 CLAIRE TIDPRN PRN 11/03 1500 AC (Mycostatin) Laboratory Tests 11/03/17 1622: Lactic Acid 1.7 11/03/17 1152: Anion Gap 13, Estimated GFR > 60, BUN/Creatinine Ratio 50.0 H, Glucose 110 H, Lactic Acid 3.1 H, Calcium 8.3 L, Total Bilirubin 0.8, AST 13 L, ALT 23, Alkaline Phosphatase 64, Troponin I 0.01, Total Protein 6.0 L, Albumin 3.1 L, Globulin 2.9, Albumin/Globulin Ratio 1.1, Cortisol AM Sample 10.7, D-Dimer High Sensitivty < 200, CBC w Diff MAN DIFF ORDERED, RBC 2.12 L, MCV 89.5, MCH 30.5, MCHC 34.0, RDW 16.1 H, MPV 8.9, Gran % 48.6, Lymphocytes % 38.2, Monocytes % 10.3 H, Eosinophils % 2.5, Basophils % 0.4, Absolute Granulocytes 0.4 L, Segmented Neutrophils 32 L, Band Neutrophils 11 H, Absolute Lymphocytes 0.3 L , Lymphocytes 52 H, Monocytes 3, Absolute Monocytes 0.1, Eosinophils 1, Absolute Eosinophils 0, Basophils 1, Absolute Basophils 0, Platelet Estimate , Hypochromic-Microcytic 2+, Anisocytosis 1+ Microbiology 11/03 1800 UPPER RESP: Surveillance Culture - RECD 11/03 1556 GI: Surveillance Culture - COLB 11/03 1502 BLOOD: Blood Culture - RECD 11/03 1216 URINE ROUT: Urine Culture - ORD 11/03 1152 BLOOD: Blood Culture - RECD 11/03 1140 BLOOD: Blood Culture - RECD Initial ED EKG: normal axis (ventricular paced, 1st degree ) Prior EKG: unchanged Departure Departure Disposition: STILL A PATIENT Condition: Stable Clinical Impression Primary Impression: Pneumonia Secondary Impressions: Anemia, Hypotension, Sepsis, Thrombocytopenia Referrals: Shannan BAEZ,Aiden Alvarez (PCP/Family) Departure Forms: Customer Survey General Discharge Information Comments Chest x-ray results shown below My interpretation is that he had left lower lobe consolidation, this is also consistent with his physical findings. IMPRESSION: This is a very limited exam secondary to motion artifact. Hypoexpanded lungs with some probable subsegmental atelectasis at both bases and no other change from prior. DICTATED BY: Pia Feliciano MD DATE/TIME DICTATED:11/03/171338 CORN MILLER:TYLOR DATE/TIME TRANSCRIBED:11/03/171338 CONFIDENTIAL, DO NOT COPY WITHOUT APPROPRIATE AUTHORIZATION. <Electronically signed in Other Vendor System> SIGNED BY: Pia Feliciano MD 11/03 1347 Admission Note Spoke With: Damion Castro MD Documentation of Exam: Documentation of any treatments & extenuating circumstances including Concerns Regarding Discharge (functional status, medication knowledge or non-compliance, living conditions, etc.) that warrant an admission rather than observation: [The patient needs admission for IV fluids, blood transfusion, IV antibiotics, heme oncology consultation, treatment for sepsis.] The patient was treated with IV antibiotics. Critical Care Note Critical Care Note Critical Care Time: 30-74 min ED Attending Observation Initial Observation Note: I have seen and personally examined JUAN DANIEL ZHU on 11/03/17 at 1211. I agree with the current emergency department documentation. The disposition (admission or discharge) is uncertain at this time, he needs a period of observation for the following reason(s): The ED Nurse caring for this patient has been personally informed as to what the patient is being observed for.
[2017-11-03] MEDS ORDERED: CLOTRIMAZOLE15 GM TOP (11:45)
[2017-11-03] MEDS ORDERED: NYSTATIN15 G2 TOP (11:46)
[2017-11-03] MEDS ORDERED: TAMSULOSIN HCL0.4 M1 PO (11:47)
[2017-11-03] MEDS ORDERED: PROCHLORPERAZIN10 MG PO (11:47)
[2017-11-03] MEDS ORDERED: TRAMADOL HCL50 M1 PO (11:48)
[2017-11-03 12:21] LABS: ABSOLUTE BASOPHIL COUNT 0 /CUMM (0.0-0.2); ABSOLUTE EOSINOPHIL COUNT 0 /CUMM (0.0-0.7); ABSOLUTE GRANULOCYTE CT 0.4 /CUMM (1.4-6.5); ABSOLUTE LYMPH COUNT 0.3 /CUMM (1.2-3.4); ABSOLUTE MONOCYTE COUNT 0.1 /CUMM (0.10-0.60); BASOPHIL % 0.4 % (0.0-2.0); EOSINOPHIL % 2.5 % (0-5); GRANULOCYTE % 48.6 % (42.2-75.2); MEAN CORPUSCULAR HGB 30.5 PG (27.0-31.0); MEAN CORPUSCULAR VOLUME 89.5 FL (80.0-94.0); MEAN PLATELET VOLUME 8.9 FL (7.4-10.4); RBC DISTRIBUTION WIDTH 16.1 % (11.5-14.5); RED BLOOD CELL CT 2.12 /CUMM (4.70-6.10)
[2017-11-03 13:00] LABS: WHITE BLOOD CELL COUNT 0.8 /CUMM (4.8-10.8)
[2017-11-03 13:01] LABS: PLATELET COUNT 20 /CUMM (130-400)
--- NOTE | 2017-11-03 13:47 | RADIOLOGY REPORT ---
EXAMINATION: XR PORTABLE CHEST CLINICAL INFORMATION: Fever COMPARISON: Chest x-ray 09/01/2017 TECHNIQUE: Portable AP semierect portable film of the chest FINDINGS: This study is limited by significant motion artifact. A pacemaker is present with lead over the right ventricular apex, distorted by motion artifact. There is a central venous catheter on the right, extending into the superior vena cava. The tip is obscured. There is decreased overall expansion of the lungs with some increased subsegmental atelectasis at both bases. Heart size is unchanged. Pulmonary vascularity is unchanged. No apparent pleural effusion or pneumothorax. IMPRESSION: This is a very limited exam secondary to motion artifact. Hypoexpanded lungs with some probable subsegmental atelectasis at both bases and no other change from prior.
--- NOTE | 2017-11-03 14:47 | History & Physical ---
Eric BAEZ,[facility] 11/03/17 1446: General Information and HPI History of Present Illness: 67-year-old very pleasant gentleman with a past medical history significant for atrial fibrillation on Xarelto, permanent pacemaker placement, rheumatoid arthritis on chronic prednisone use of 5 mg daily now, hypertension, BPH, COPD, recent diagnosis of small cell lung cancer on chemotherapy and radiation with last chemotherapy 2-1/2 weeks ago (carboplatin and etoposide), presented to [facility] for evaluation after being sent by the cancer center across the street. Patient was scheduled for radiation therapy with Dr. Daley, however after reporting a 2-3 day history of chills, malaise, and a Tmax of 100.3 he was referred to [facility] ED. He denies any cough,odynophagia, abdominal pain, diarrhea, dysuria, or change in urine frequency. No sick contacts or recent travel. He does report chronic groin fungal infection which is managed by nystatin cream and recently a few day doses of fluconazole. He however denies any worsening skin changes at the affected groin areas. He does report that his white count has been low due to the chemotherapy and radiation and recently received Neulasta at his oncologist office. At initial presentation patient was found to be hypotensive with systolic blood pressures around mid 80s. He does endorse some mild shortness of breath on exertion however denies any chest pain, or palpitation. He received 2 L of normal saline resuscitation and responded well with his systolic blood pressure going up to 106. Allergies/Medications Allergies: Coded Allergies: No Known Allergies (08/01/17) Home Med list Albuterol Sulfate (Ventolin Hfa) 90 MCG HFA.AER.AD 2 PUF INH Q6-PRN PRN SHORTNESS OF BREATH (Reported) Carvedilol 6.25 MG TABLET 1 TAB PO BID HEART/BP (Reported) Cholecalciferol (Vitamin D3) 1,000 UNIT TABLET 1 TAB PO DAILY VITAMIN SUPPORT (Reported) Clotrimazole 1 % CREAM..G. 1 CLAIRE TOP BID UNKNOWN (Reported) apply to affected area(s) Finasteride 5 MG TABLET 1 TAB PO DAILY PROSTATE (Reported) Folic Acid 1 MG TABLET 1 TAB PO DAILY SUPPLEMENT (Reported) Furosemide 40 MG TABLET 1 TAB PO DAILY WATER RETENTION (Reported) Multivit-Min/FA/Lycopen/Lutein (Centrum Silver Tablet) 0.4 MG-300 MCG-250 MCG TABLET 1 TAB PO DAILY VITAMIN SUPPORT (Reported) Nystatin 100,000 UNIT/GRAM POWDER 1 CLAIRE TOP 4 TIMES/DAY JAEL INFECTION ( Reported) Olmesartan Medoxomil (Benicar) 40 MG TABLET 1 TAB PO DAILY HEART (Reported) Potassium Chloride (Klor-Con M10) 10 MEQ TAB.ER.PRT 1 TAB PO DAILY SUPPLEMENT (Reported) Prednisone 5 MG TABLET 1 TAB PO DAILY STEROID (Reported) Prochlorperazine Maleate 10 MG TABLET 1 TAB PO Q6 PRN NAUSEA/VOMITING ( Reported) Rivaroxaban (Xarelto) 20 MG TABLET 1 TAB PO DAILY BLOOD THINNER (Reported) with food Tamsulosin HCl 0.4 MG CAP.ER.24H 1 CAP PO BID BPH (Reported) Tiotropium [place] (Spiriva) 18 MCG CAP.W.DEV 1 CAP INH DAILY COPD . Tramadol HCl 50 MG TABLET 1 TAB PO Q4 HRS NEEDED PRN PAIN (Reported) Past History Travel History Traveled to [place] past 21 day No Medical History Neurological: NONE EENT: NONE Cardiovascular: AFIB, cardiomyopathy, CHF, hypertension Respiratory: COPD, emphysema, obstructive sleep apnea, pneumonia Gastrointestinal: NONE Hepatic: NONE Renal: NONE Musculoskeletal: rheumatoid arthritis Psychiatric: NONE Endocrine: NONE Blood Disorders: NONE Cancer(s): NONE History of MRSA: No History of VRE: No History of CDIFF: No Surgical History Surgical History: hip replacement, knee replacement Past Family/Social History Family History Relations & Conditions if any Relation not specified for: FH: breast cancer Heart attack Psychosocial History Who Do You Live With? spouse, child Services at Home: None Primary Language: Latvian Living Will? yes Functional Ability ADLs Independent: dressing, eating, toileting, bathing. Ambulation: independent Review of Systems Review of Systems Constitutional: Reports: see HPI. EENTM: Reports: no symptoms. Cardiovascular: Reports: no symptoms. Respiratory: Reports: no symptoms. GI: Reports: no symptoms. Genitourinary: Reports: no symptoms. Musculoskeletal: Reports: no symptoms. Skin: Reports: see HPI. Neurological/Psychological: Reports: no symptoms. Hematologic/Endocrine: Reports: no symptoms. Immunologic/Allergic: Reports: no symptoms. Exam & Diagnostic Data Last 24 Hrs of Vital Signs/I&O Vital Signs Date Time Temp Pulse Resp B/P B/P Pulse O2 O2 Flow FiO2 Mean Ox Delivery Rate 07/09 1531 98.9 75 20 119/58 97 Room Air 11/03 1349 98.4 80 20 106/55 100 Room Air Room Air 11/03 1301 98.5 75 20 100/54 98 Room Air Room Air 11/03 1259 96 Room Air Room Air 11/03 1158 98.4 71 20 86/50 96 Room Air Room Air 11/03 1125 98.4 76 18 90/60 97 Room Air Intake & Output 11/03 1600 11/03 0800 11/03 0000 Intake Total 2000 Output Total Balance 1999 Intake, IV 2000 Patient 134.717 kg Weight Physical Exam General Appearance Alert, Oriented X3, Cooperative Skin eythematouys area on groin consistent with Intertrigo (chronic). Skin Temp/Moisture Exam: Warm/Dry Sepsis Skin Exam (color): Normal for Ethnicity HEENT Atraumatic, Mucous Membr. moist/pink Neck Supple, No JVD Lymphatic Cervical nl Cardiovascular Normal S1, Normal S2 Lungs Clear to Auscultation, Normal Air Movement Abdomen Normal Bowel Sounds, Soft, No Tenderness Neurological Normal Gait, Normal Speech, Strength at 5/5 X4 Ext, Normal Tone, Sensation Intact Extremities No Clubbing, No Cyanosis, +1-2 edema on bilateral feet. Last 24 Hrs of Labs/Kali: Laboratory Tests 11/03/17 1152: Anion Gap 13, Estimated GFR > 60, BUN/Creatinine Ratio 50.0 H, Glucose 110 H, Lactic Acid 3.1 H, Calcium 8.3 L, Total Bilirubin 0.8, AST 13 L, ALT 23, Alkaline Phosphatase 64, Troponin I 0.01, Total Protein 6.0 L, Albumin 3.1 L, Globulin 2.9, Albumin/Globulin Ratio 1.1, Cortisol AM Sample Pending, D-Dimer High Sensitivty < 200, CBC w Diff MAN DIFF ORDERED, RBC 2.12 L, MCV 89.5, MCH 30.5, MCHC 34.0, RDW 16.1 H, MPV 8.9, Gran % 48.6, Lymphocytes % 38.2, Monocytes % 10.3 H, Eosinophils % 2.5, Basophils % 0.4, Absolute Granulocytes 0.4 L, Segmented Neutrophils 32 L, Band Neutrophils 11 H, Absolute Lymphocytes 0.3 L, Lymphocytes 52 H, Monocytes 3, Absolute Monocytes 0.1, Eosinophils 1, Absolute Eosinophils 0, Basophils 1, Absolute Basophils 0, Platelet Estimate , Hypochromic-Microcytic 2+, Anisocytosis 1+ Microbiology 11/03 1556 UPPER RESP: Surveillance Culture - ORD 11/03 1556 GI: Surveillance Culture - ORD 11/03 1502 BLOOD: Blood Culture - RECD 11/03 1216 URINE ROUT: Urine Culture - ORD 11/03 1152 BLOOD: Blood Culture - RECD 11/03 1140 BLOOD: Blood Culture - RECD Assessment/Plan Assessment: 67-year-old pleasant gentleman who is a former smoker with a recent diagnosis of small cell lung carcinoma on chemotherapy and radiation with last treatment with carboplatin and etoposide about 20 off weeks presents with complaints of chills/ " fevers" in the setting of significant neutropenia with an ANC of 400. Impression * Shock. As evident by systolic blood pressure of 80/60 requiring IVF. Concern for infectious etiology. Patient is neutropenic and on chronic prednisone use and therefore not expected to mount a significant fever even though he reports MAXIMUM TEMPERATURE of 100.3 at home * Severe neutropenia with a white count of 800. Most likely secondary to chemotherapy and radiation. Given that the patient has had last chemotherapy about 2-1/2 weeks ago, his counts should probably be higher than what his presenting with. His prolonged suppression is most likely an additive effect of radiation therapy. * Neutropenic fever with an ANC of 400. * Anemia * Significant thrombocytopenia with no acute bleeding. Current level is 20,000. This is most likely secondary to chemotherapy and radiation. Ideally, patient showed be out of the liv period. His prolonged thrombocytopenia most likely secondary to the additive effect of radiation therapy. * History of chronic diseases; hypertension, hyperlipidemia, lower extremity edema, A. fib, heart block. Plan * Admit to ICU * Neutropenic contact precautions only * Continue 1 unit of PRBC * We'll continue ceftaz 2 g and vancomycin for now. Ideally gram-negative coverage is needed in neutropenic fever patient to address Pseudomonas coverage. Patient significant hypotension on presentation is one of the indication for vancomycin use to cover for MRSA (other indications for MRSA which he does not have include skin infection, significant pneumonia, or an infected line). * Will transfuse 1 unit of platelets. The ideal parameters are normally below 20,000 with fever or less than 10,000. However given that the patient is on chronic prednisone use temperature readings might not be reliable as patient might not be able to mount a fever. * f/u on UA, sputum cultures, and blood cultures * Will hold off the Xarelto in the context of significant thrombocytopenia * Will obtain infectious disease consultation * Hydrocortisone 50mg q8 for now in the context of hypotension and chronic prednisone use * Will obtain heme oncology consultation * TRC/nebs * DVT prophylaxis; Alps As Ranked By This Provider Problem List: 1. Neutropenic fever 2. Hypotension 3. Thrombocytopenia Core Measures/Misc (01/12) Acute Coronary Syndrome ACS Diagnosis: No Congestive Heart Failure Congestive Heart Failure Diagnosis No Cerebrovascular Accident CVA/TIA Diagnosis: No VTE (View Protocol) VTE Risk Factors Acute Medical Illness No Mechanical VTE Prophylaxis d/t N/A MechProphylax Ordered No VTE Pharm Prophylaxis d/t Platelets below ref range Sepsis (View protocol) Sepsis Present: No If YES complete Sepsis Event Note If YES complete Sepsis Event Note Tommy Castro MDDaysi Luciano 11/03/17 9665: General Information and HPI MD Statement: I have seen and personally examined JUAN DANIEL ZHU and documented this H& P. The patient is a 67 year old M who presented with a patient stated chief complaint of []. Source of Information: patient, old records Exam Limitations: no limitations Core Measures/Misc (01/12) Sepsis (View protocol) If YES complete Sepsis Event Note If YES complete Sepsis Event Note Attending MD Review Statement Attending Statement Attending MD Statement: examined this patient, discuss w/resident/PA/DIABETOLOGIST, agreed w/resident/PA/DIABETOLOGIST, reviewed images, amended to note Attending Assessment/Plan: I have personally seen and examined the patient and agree with the resident's assessment in plan as detailed above. Briefly, the patient is a 67-year-old male with a history significant for atrial fibrillation on Xarelto, permanent pacemaker placement, rheumatoid arthritis on chronic prednisone use of 5 mg daily, hypertension, BPH, COPD, and recently diagnosed small cell lung cancer on chemoradiation. The patient is cared for by Dr. Conway and Dr. Daley. He also sees Dr. Gant for his pulmonary issues. The patient was admitted to the critical care unit with a 2-3 day history of chills, malaise and a fever of 100.3. On initial presentation to the ED, he was found to be hypotensive with his blood pressure in the 80s. He responded to IV fluids. He complains of some mild shortness of breath but has no chest pain or palpitations. The patient was further evaluated and found to have significant neutropenia, anemia without active bleeding, and thrombocytopenia. He was admitted to the ICU on neutropenic precautions. He was transfused 1 unit of packed red blood cells. The patient has been pancultured and started on vancomycin and ceftazidime. Consults have been placed including oncology and ID. The patient will be transfused 1 unit of platelets. Xarelto will be held. The patient will receive hydrocortisone for stress dose steroids. He will continue on TRC/neb treatments. He will continue on DVT prophylaxis with Alps at all times. I have discussed the plan of care with the house staff and asked him to contact me should the patient's condition change or deteriorate. The patient remains critically ill and will continue to be monitored in the intensive care unit. Dr. Gant will be following as of tomorrow.
--- NOTE | 2017-11-03 16:03 | Cons- Infect Disease ---
General Information and HPI Consulting Request Date of Consult: 11/03/17 Requested By: Chris Moss MD Reason for Consult: Hypotension/neutropenia status post chemotherapy Source of Information: patient, old records Exam Limitations: poor historian History of Present Illness: This is a 67-year-old man with a history of hypertension, atrial fibrillation, status post AV node ablation and maintained on Xarelto, status post pacemaker, rheumatoid arthritis, maintained on 5 mg of prednisone daily and treated in the past with methotrexate and a TNF, COPD, obstructive sleep apnea, hospitalized 3 months prior to admission with a pneumonia and found to have a masslike opacity in the right upper lobe, felt to be suspicious for tumor on a PET scan 3 weeks after discharge and confirmed on a biopsy at [place], with no further details available, begun on radiation therapy and chemotherapy, after placement of a Port-A-Cath, 2 months prior to admission, with his last treatment completed 2-1/ 2 weeks prior to admission, status post trauma to the anterior aspect of his left leg 2 months prior to admission resulting in a hematoma, with a nonhealing ulceration, admitted today after he was referred to the emergency room by his radiation oncologist because of a 3 day history of fevers and chills without associated symptoms. On admission he was afebrile, with a blood pressure of 90/ 60. Laboratory data revealed a white blood cell count of 800, with 400 neutrophils, H&H 6.5 and 19, platelets 20,000, BUN/creatinine 35 and 0.7, lactic acid 3.1, with normal liver enzymes. Chest x-ray revealed atelectasis at both lung bases. He has been given Vancomycin and Ceftazidime. He does report dysphagia for the last several weeks but denies odynophagia. He also notes chronic candidiasis of the groin, which has not responded to topical or systemic therapy. Allergies/Medications Allergies: Coded Allergies: No Known Allergies (08/01/17) Home Med List: Albuterol Sulfate (Ventolin Hfa) 90 MCG HFA.AER.AD 2 PUF INH Q6-PRN PRN SHORTNESS OF BREATH (Reported) Carvedilol 6.25 MG TABLET 1 TAB PO BID HEART/BP (Reported) Cholecalciferol (Vitamin D3) 1,000 UNIT TABLET 1 TAB PO DAILY VITAMIN SUPPORT (Reported) Clotrimazole 1 % CREAM..G. 1 CLAIRE TOP BID UNKNOWN (Reported) apply to affected area(s) Finasteride 5 MG TABLET 1 TAB PO DAILY PROSTATE (Reported) Folic Acid 1 MG TABLET 1 TAB PO DAILY SUPPLEMENT (Reported) Furosemide 40 MG TABLET 1 TAB PO DAILY WATER RETENTION (Reported) Multivit-Min/FA/Lycopen/Lutein (Centrum Silver Tablet) 0.4 MG-300 MCG-250 MCG TABLET 1 TAB PO DAILY VITAMIN SUPPORT (Reported) Nystatin 100,000 UNIT/GRAM POWDER 1 CLAIRE TOP 4 TIMES/DAY GLORIA INFECTION ( Reported) Olmesartan Medoxomil (Benicar) 40 MG TABLET 1 TAB PO DAILY HEART (Reported) Potassium Chloride (Klor-Con M10) 10 MEQ TAB.ER.PRT 1 TAB PO DAILY SUPPLEMENT (Reported) Prednisone 5 MG TABLET 1 TAB PO DAILY STEROID (Reported) Prochlorperazine Maleate 10 MG TABLET 1 TAB PO Q6 PRN NAUSEA/VOMITING ( Reported) Rivaroxaban (Xarelto) 20 MG TABLET 1 TAB PO DAILY BLOOD THINNER (Reported) with food Tamsulosin HCl 0.4 MG CAP.ER.24H 1 CAP PO BID BPH (Reported) Tiotropium [place]in (Spiriva) 18 MCG CAP.W.DEV 1 CAP INH DAILY COPD . Tramadol HCl 50 MG TABLET 1 TAB PO Q4 HRS NEEDED PRN PAIN (Reported) Past History Travel History Traveled to [place] past 21 day No Medical History Neurological: NONE EENT: NONE Cardiovascular: AFIB, cardiomyopathy, CHF, hypertension Respiratory: COPD, emphysema, obstructive sleep apnea, pneumonia Gastrointestinal: NONE Hepatic: NONE Renal: NONE Musculoskeletal: rheumatoid arthritis Psychiatric: NONE Endocrine: NONE Blood Disorders: NONE Cancer(s): NONE History of MRSA: No History of VRE: No History of CDIFF: No Surgical History Surgical History: hip replacement, knee replacement, s/p pacemaker Family History Relations & Conditions If Any: Relation not specified for: FH: breast cancer Heart attack Psychosocial History Who Do You Live With? spouse, child Services at Home: None Primary Language: Bahamian Living Will? yes Functional Ability ADLs Independent: dressing, eating, toileting, bathing. Ambulation: independent Review of Systems Review of Systems Cardiovascular: Reports: chest pain. Respiratory: Reports: cough. Denies: short of breath. GI: Denies: abdominal pain, diarrhea, nausea, vomiting. Genitourinary: Reports: no symptoms. Musculoskeletal: Reports: back pain (chronic). Exam & Diagnostic Data Last 24 Hrs of Vital Signs/I&O Vital Signs Date Time Temp Pulse Resp B/P B/P Pulse O2 O2 Flow FiO2 Mean Ox Delivery Rate 11/03 1531 98.9 75 20 119/58 97 Room Air 11/03 1349 98.4 80 20 106/55 100 Room Air Room Air 11/03 1301 98.5 75 20 100/54 98 Room Air Room Air 11/03 1259 96 Room Air Room Air 11/03 1158 98.4 71 20 86/50 96 Room Air Room Air 11/03 1125 98.4 76 18 90/60 97 Room Air Intake & Output 11/03 1600 11/03 0800 11/03 0000 Intake Total 2000 Output Total Balance 1999 Intake, IV 2000 Patient 297 lb Weight Physical Exam Other Physical Findings: The is awake and alert in no acute distress. He is afebrile on steroids. Skin reveals diffuse ecchymoses and petechiae. HEENT exam no thrush. Chest Port-A- Cath in the right upper chest with no inflammation at the site; pacemaker in the left upper chest with no inflammation at the site. Neck is supple with no adenopathy. Lungs are clear. Heart regular rhythm with no murmur. Abdomen is obese, soft, nontender with positive bowel sounds. Back no CVA tenderness. Extremities no cyanosis, clubbing or edema; ulceration on the anterior tibial aspect of his left leg, with no discharge, chronic skin changes but with no erythema, warmth or tenderness; 2+ edema both lower extremities; bilateral groin candidiasis. Neuro is without focality. Last 24 Hours of Lab Results: Laboratory Tests 11/03 1152 Chemistry Sodium (137 - 145 mmol/L) 142 Potassium (3.5 - 5.1 mmol/L) 3.9 Chloride (98 - 107 mmol/L) 104 Carbon Dioxide (22 - 30 mmol/L) 26 Anion Gap (5 - 16) 13 BUN (9 - 20 mg/dL) 35 H Creatinine (0.7 - 1.2 mg/dL) 0.7 Estimated GFR (>60 ml/min) > 60 BUN/Creatinine Ratio (7 - 25 %) 50.0 H Glucose (65 - 99 mg/dL) 110 H Lactic Acid (0.7 - 2.1 mmol/L) 3.1 H Calcium (8.4 - 10.2 mg/dL) 8.3 L Total Bilirubin (0.2 - 1.3 mg/dL) 0.8 AST (17 - 59 U/L) 13 L ALT (21 - 72 U/L) 23 Alkaline Phosphatase (< 127 U/L) 64 Troponin I (<0.11 ng/ml) 0.01 Total Protein (6.3 - 8.2 g/dL) 6.0 L Albumin (3.5 - 5.0 g/dL) 3.1 L Globulin (1.9 - 4.2 gm/dL) 2.9 Albumin/Globulin Ratio (1.1 - 2.2 %) 1.1 Cortisol AM Sample (4.46 - 22.7 ug/dL) Pending Coagulation D-Dimer High Sensitivty (0 - 243 ng/ml) < 200 Hematology CBC w Diff MAN DIFF ORDERED WBC (4.8 - 10.8 /CUMM) 0.8 *L RBC (4.70 - 6.10 /CUMM) 2.12 L Hgb (14.0 - 18.0 G/DL) 6.5 *L Hct (42 - 52 %) 19.0 *L MCV (80.0 - 94.0 FL) 89.5 MCH (27.0 - 31.0 PG) 30.5 MCHC (33.0 - 37.0 G/DL) 34.0 RDW (11.5 - 14.5 %) 16.1 H Plt Count (130 - 400 /CUMM) 20 *L MPV (7.4 - 10.4 FL) 8.9 Gran % (42.2 - 75.2 %) 48.6 Lymphocytes % (20.5 - 51.1 %) 38.2 Monocytes % (1.7 - 9.3 %) 10.3 H Eosinophils % (0 - 5 %) 2.5 Basophils % (0.0 - 2.0 %) 0.4 Absolute Granulocytes (1.4 - 6.5 /CUMM) 0.4 L Segmented Neutrophils (42.2 - 75.2 %) 32 L Band Neutrophils (0.0 - 5.0 %) 11 H Absolute Lymphocytes (1.2 - 3.4 /CUMM) 0.3 L Lymphocytes (20.5 - 51.1 %) 52 H Monocytes (1.7 - 9.3 %) 3 Absolute Monocytes (0.10 - 0.60 /CUMM) 0.1 Eosinophils (0 - 5.0 %) 1 Absolute Eosinophils (0.0 - 0.7 /CUMM) 0 Basophils (0.0 - 2.0 %) 1 Absolute Basophils (0.0 - 0.2 /CUMM) 0 Platelet Estimate (ADEQUATE) Hypochromic-Microcytic 2+ Anisocytosis 1+ Last 24 Hours of Kali Results: Blood cultures 2 November 03 pending Diagnostic Data Recent Imaging Findings: Chest x-ray November 03 reveals subsegmental atelectasis at both bases Assessment/Plan Assessment/Plan Impression: This is a 67-year-old man, recently diagnosed with lung cancer of the right upper lobe, begun on radiation therapy and chemotherapy several months prior to admission, with his last treatment completed 2-1/2 weeks prior to admission, admitted today because of a 3 day history of fevers and chills, found to be afebrile, hypotensive and pancytopenic. His hypotension, though improved after several liters of fluid, is worrisome for sepsis, though he does look well, and he is clearly at increased risk for infection given his neutropenia, which appears to be somewhat prolonged given that his chemotherapy was apparently completed 2-1/2 weeks prior to admission. He is afebrile, but he is on steroids for his rheumatoid arthritis and he has been taking Tylenol regularly over the last several days. He has no obvious focus of infection. He does complain of dysphagia, raising concern for esophagitis, which could be secondary to radiation or infection, possibly Gloria (though he has no oral thrush), HSV or CMV. He does have candidiasis of the groin, which apparently has not responded to topical and systemic therapy. Given his neutropenia and hypotension it would be reasonable to treat empirically with antibiotics pending cultures and the return of his white blood cell count. Suggestion: 1. Neutropenic precautions 2. Consider need for stress steroids given his chronic treatment with prednisone 3. Consider further evaluation of his dysphagia, for example with a Barium swallow 4. Begin Nystatin powder to his groin 5. Follow-up recent cultures 6. Continue Vancomycin 1.5 g IV every 12 hours and Ceftazidime 2 g IV every 8 hours pending above Consult Acknowledgment - Thank you for your consult request.
[2017-11-03 18:00] VITALS: BP 122/72
--- NOTE | 2017-11-03 18:36 | Admission Certification ---
Admission Certification Certification Statement - As attending physician, I certify that at the time of - admission, based on clinical presentation, severity of - symptoms, need for further diagnostic testing and - therapeutic interventions, and risk of adverse outcomes - without in-hospital treatment, in my clinical assessment, - this patient requires an acute hospital stay for a minimum - of two nights or longer. I have also considered psychsocial - factors such as support system, advanced age, financial - issues, cognitive issues, and failed out-patient treatments, - past re-admission history, safety of patient, and lack of - compliance as applicable. Specific rationale supporting this admission is: The patient is being admitted for neutropenic septic shock. He will require broad-spectrum antibiotics and workup for an infectious source. He will require ICU monitoring for hemodynamic instability.
--- NOTE | 2017-11-03 20:22 | CT SCAN REPORT ---
EXAMINATION: CT CHEST, ABDOMEN AND PELVIS WITH CONTRAST. CLINICAL INFORMATION: ACUTE INFECTIOUS PATHOLOGY,HX OF SCLC . COMPARISON: Prior studies including the 08/26/2017 PET/CT scan and the 08/01/2017 CT scan. TECHNIQUE: Multidetector volumetric imaging was performed from the thoracic inlet through the pubic symphysis following administration of 95 ml of Optiray 320. Sagittal and coronal reformatted images were obtained on the technologist's workstation. DLP: 1809 mGy-cm FINDINGS: CHEST: Lung: Significant posttreatment changes are seen. There is now linear fibrotic changes in the right lung apex suggesting post radiation treatment. The more discrete nodular opacity along the subpleural aspect of the posterior medial right apex has decreased in prominence from the prior studies currently measuring 1.7 cm maximally. The linear fibrotic changes adjacent to this area again are suggestive of postradiation fibrosis with mild traction bronchiectasis. There is a stable 5 mm stable pulmonary nodule seen in the right middle lobe seen best on axial image 242/510. Linear regions of scarring/fibrosis seen in the dependent lungs. This is superimposed on centrilobular emphysematous changes. Mediastinum: The right paratracheal lymph node currently measures 1.9 cm and short axis diameter which is decreased from 3.4 cm on the 08/26/2017 PET/CT scan. Vascular calculations seen within the aorta and coronary arteries. Pacemaker/AICD leads are noted. Pericardium/Pleura: No significant effusion. No pleural mass or thickening. Chest Wall/Axilla: Unremarkable. ABDOMEN/PELVIS: Peritoneal Space:No significant free air or free fluid identified. Liver, Gallbladder, Biliary Tree: Multiple low-attenuation probable cysts are again seen within the liver. Some of these are too small to characterize further. No biliary ductal dilatation. Gallstone seen within the contracted gallbladder. Pancreas: Unremarkable. Spleen: Unremarkable. Adrenal Glands: Unremarkable. Kidneys and Ureters: Multiple bilateral low-attenuation renal cysts are seen. Generative these measured cystic density although there is a suggestion of a hyperdense cyst measuring approximately 2.5 cm in size in the midpole of the left kidney. This is not significantly changed in size or character from the recent prior studies. Some of the smaller presumed cysts are too small to characterize further. No hydronephrosis or perinephric stranding. Bladder: There is asymmetric bladder wall thickening with focal calcification seen along the posterior left bladder base these tiny calcifications were seen on the prior study as well and a difficult to define further the left hip prosthesis obscures evaluation the bladder otherwise. Gastrointestinal Tract: A few scattered colonic diverticula are seen but there is no evidence for diverticulitis. No obstructive changes to the small bowel. Abdominal Wall: Soft tissue stranding seen within the intra-abdominal wall possibly due to prior injections Lymphovascular Structures: Vascular calcification within the aorta iliac system. I do not appreciate any significant bulky retroperitoneal or mesenteric adenopathy. Incidental circumaortic left renal vein. Pelvic Viscera: Prostatic calcification in the heterogeneous hypoattenuation to the prostate gland again seen. This is difficult to define further due to beam hardening artifact. Osseus Structures: Multilevel degenerative changes in the spine. I do not appreciate any acute bony lesion. IMPRESSION: Posttreatment changes in the right lung apex suggesting post radiation scarring and fibrosis as described more detail above. I do not appreciate any suspicious area of consolidation. Chronic appearing changes are present within the abdomen and pelvis. Gallstones are seen in the contracted but otherwise unremarkable gallbladder. This is subtle irregularity along the posterolateral left wall of the bladder is difficult to define further due to artifact in this area. Clinical correlation would be helpful. Direct visualization of the bladder may be helpful. There is a hypoattenuation in the region of the prostate again difficult to define further due to the metallic artifact from the left hip prosthesis. Cystic change within the prostate cannot be entirely excluded. This is been present on prior studies which would make prostatic abscess less likely. Clinical correlation would be helpful.
[2017-11-04] VITALS: BP 130/70
[2017-11-04 03:50] LABS: ABSOLUTE BASOPHIL COUNT 0 /CUMM (0.0-0.2); ABSOLUTE EOSINOPHIL COUNT 0 /CUMM (0.0-0.7); ABSOLUTE GRANULOCYTE CT 1.2 /CUMM (1.4-6.5); ABSOLUTE LYMPH COUNT 0.3 /CUMM (1.2-3.4); ABSOLUTE MONOCYTE COUNT 0.2 /CUMM (0.10-0.60); BASOPHIL % 0.2 % (0.0-2.0); EOSINOPHIL % 1.1 % (0-5); GRANULOCYTE % 71.2 % (42.2-75.2); MEAN CORPUSCULAR HGB CONC 34.5 G/DL (33.0-37.0); MEAN CORPUSCULAR VOLUME 89.8 FL (80.0-94.0); MEAN PLATELET VOLUME 7.3 FL (7.4-10.4); RBC DISTRIBUTION WIDTH 14.8 % (11.5-14.5); RED BLOOD CELL CT 2.21 /CUMM (4.70-6.10)
[2017-11-04 04:14] LABS: HEMATOCRIT 19.8 % (42-52); PLATELET COUNT 41 /CUMM (130-400); WHITE BLOOD CELL COUNT 1.7 /CUMM (4.8-10.8)
--- NOTE | 2017-11-04 06:44 | Cons- Oncology ---
General Information and HPI Consulting Request Date of Consult: 11/04/17 Requested By: Matthew BAEZ,Damion Luciano Reason for Consult: neutropenic fever, small cell lung cancer Source of Information: patient, old records Exam Limitations: no limitations History of Present Illness: Mr. 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 He has had a temperature of a 100.3. He has been more tired and fatigued with the radiation. He denies any nausea or vomiting. He denies any diarrhea. He denies any cough. He denies any dysuria. He denies any new pain. He has no recent sick contact. His chronic groin fungal infection has been treated with nystatin powder, nystatin cream, and fluconazole. He also had a left leg wound which has been healing well. On presentation to the [facility] ED, he was noted to be hypertensive with systolic blood pressure in the 80s. He was given 2 liters of normal saline which improved his blood pressure. WBC was 800. hemoglobin was 6.5 with hematocrit of 19.0. [place] [address]. He was given 2 units of pack RBC and 1 unit pooled platelet. he was started on vancomycin and ceftazidime. He remains afebrile. He he underwent a CT scan of the chest, abdomen, and pelvis. This morning, the patient feels well. He is afebrile. He has no new pain. He denies any significant complaints. His breathing is stable. Allergies/Medications Allergies: Coded Allergies: No Known Allergies (08/01/17) Home Med List: Albuterol Sulfate (Ventolin Hfa) 90 MCG HFA.AER.AD 2 PUF INH Q6-PRN PRN SHORTNESS OF BREATH (Reported) Carvedilol 6.25 MG TABLET 1 TAB PO BID HEART/BP (Reported) Cholecalciferol (Vitamin D3) 1,000 UNIT TABLET 1 TAB PO DAILY VITAMIN SUPPORT (Reported) Clotrimazole 1 % CREAM..G. 1 CLAIRE TOP BID UNKNOWN (Reported) apply to affected area(s) Finasteride 5 MG TABLET 1 TAB PO DAILY PROSTATE (Reported) Folic Acid 1 MG TABLET 1 TAB PO DAILY SUPPLEMENT (Reported) Furosemide 40 MG TABLET 1 TAB PO DAILY WATER RETENTION (Reported) Multivit-Min/FA/Lycopen/Lutein (Centrum Silver Tablet) 0.4 MG-300 MCG-250 MCG TABLET 1 TAB PO DAILY VITAMIN SUPPORT (Reported) Nystatin 100,000 UNIT/GRAM POWDER 1 CLAIRE TOP 4 TIMES/DAY JAEL INFECTION ( Reported) Olmesartan Medoxomil (Benicar) 40 MG TABLET 1 TAB PO DAILY HEART (Reported) Potassium Chloride (Klor-Con M10) 10 MEQ TAB.ER.PRT 1 TAB PO DAILY SUPPLEMENT (Reported) Prednisone 5 MG TABLET 1 TAB PO DAILY STEROID (Reported) Prochlorperazine Maleate 10 MG TABLET 1 TAB PO Q6 PRN NAUSEA/VOMITING ( Reported) Rivaroxaban (Xarelto) 20 MG TABLET 1 TAB PO DAILY BLOOD THINNER (Reported) with food Tamsulosin HCl 0.4 MG CAP.ER.24H 1 CAP PO BID BPH (Reported) Tiotropium [place] (Spiriva) 18 MCG CAP.W.DEV 1 CAP INH DAILY COPD . Tramadol HCl 50 MG TABLET 1 TAB PO Q4 HRS NEEDED PRN PAIN (Reported) Current Medications: Current Medications Sig/Ta Start time Last Medication Dose Route Stop Time Status Admin Albuterol Sulfate 2 PUF Q4-PRN PRN 11/03 1945 AC INH Carvedilol 6.25 MG BID 11/03 2100 AC 11/03 PO 2222 Ceftazidime 2,000 MG IQ8 11/04 0000 AC 11/04 IV 0133 Ceftazidime 0 .STK-MED ONE 11/03 1440 DC .ROUTE Ceftazidime 2,000 MG ONCE ONE 11/03 1330 DC 11/03 IV 11/03 1331 1430 Finasteride 5 MG DAILY 11/04 899 AC PO Folic Acid 1 MG DAILY 11/04 899 AC PO Furosemide 40 MG DAILY 11/04 899 CAN PO Hydrocortisone 50 MG Q8 11/03 2200 AC 11/03 Sodium Succinate IV 2222 Losartan Potassium 100 MG DAILY 11/04 899 CAN PO Nystatin 1 CLAIRE TIDPRN PRN 11/03 1500 AC TOP Prednisone 5 MG DAILY 11/04 0900 CAN PO Sodium Chloride 1,000 ML BOLUS ONE 11/03 1230 DC 11/03 IV 11/03 1329 1435 Sodium Chloride 1,000 ML BOLUS ONE 11/03 1215 DC / IV 11/03 1314 1250 Vancomycin HCl 1,500 MG Q12H 11/04 0200 AC 11/04 Sodium Chloride 250 ML IV 0132 Vancomycin HCl 1.5 MG Q12 11/03 2100 CAN IV Vancomycin HCl 1,500 MG Q12 11/03 2100 DC Sodium Chloride 250 ML IV Vancomycin HCl 1,000 MG ONCE ONE 11/03 1330 DC 11/03 Sodium Chloride 250 ML IV 11/03 1429 1430 Review of Systems Review of Systems Constitutional: Reports: fever, weakness. Denies: chills, malaise. Cardiovascular: Denies: chest pain. Respiratory: Reports: short of breath. Denies: cough, hemoptysis. GI: Denies: diarrhea. Genitourinary: Denies: dysuria. Musculoskeletal: Reports: back pain, muscle pain. Skin: Reports: erythema (LLE, groin). Neurological/Psychological: Denies: confusion. Hematologic/Endocrine: Denies: bleeding. Immunologic/Allergic: Denies: splenectomy, lymphadenopathy. All Other Systems: Reviewed and Negative Past History Travel History Traveled to [place] past 21 day No Medical History Blood Transfusion Hx: No Neurological: NONE EENT: NONE Cardiovascular: AFIB, cardiomyopathy, CHF, hypertension Respiratory: COPD, emphysema, obstructive sleep apnea, pneumonia Gastrointestinal: NONE Hepatic: NONE Renal: NONE Musculoskeletal: rheumatoid arthritis Psychiatric: NONE Endocrine: NONE Blood Disorders: NONE Cancer(s): lung cancer Surgical History Surgical History: hip replacement, knee replacement, s/p pacemaker Family History Relations & Conditions If Any: Relation not specified for: FH: breast cancer Heart attack Psychosocial History Where Do You Live? Home Who Do You Live With? spouse, child Services at Home: None Primary Language: [place] Smoking Status: Former Smoker Living Will? yes Functional Ability ADLs Independent: dressing, eating, toileting, bathing. Ambulation: independent Exam & Diagnostic Data Vital Signs and I&O Vital Signs Date Time Temp Pulse Resp B/P B/P Pulse O2 O2 Flow FiO2 Mean Ox Delivery Rate 11/04 0000 97.9 70 30 130/70 97 Room Air Room Air 11/03 2222 68 132/86 11/03 1925 Room Air 11/03 1800 97.0 78 26 122/72 96 Room Air Room Air 11/03 1800 96 Room Air Room Air 11/03 1531 98.9 75 20 119/58 97 Room Air 11/03 1349 98.4 80 20 106/55 100 Room Air Room Air 11/03 1301 98.5 75 20 100/54 98 Room Air Room Air 11/03 1259 96 Room Air Room Air 11/03 1158 98.4 71 20 86/50 96 Room Air Room Air 11/03 1125 98.4 76 18 90/60 97 Room Air Intake & Output 11/04 0800 11/04 0000 11/03 1600 Intake Total 800 2000 Output Total Balance 800 2000 Intake, Blood 500 Product Intake, IV 2000 Intake, Oral 300 Patient 132.903 kg 133.129 kg 134.717 kg Weight Weight Bed scale Bed scale Measurement Method Physical Exam General Appearance: well developed/nourished, no apparent distress, alert, awake , comfortable, obese Head: atraumatic Eyes: Bilateral: PERRL, EOMI. Ears, Nose, Throat: normal pharynx Neck: supple Respiratory: chest non-tender, no respiratory distress, quiet respiration, crackles (At bases) Cardiovascular: regular rate/rhythm, edema Gastrointestinal: normal bowel sounds, soft, non-tender, no organomegaly Extremities: tenderness (right lower extremity), dressing in place on the left lower extremity Neurologic/Psych: awake, alert, oriented x 3 Skin: left lower extremity wound, erythematous rash in groin Last 48 Hours of Lab Results: Laboratory Tests 11/04 11/03 11/03 0335 1952 1622 Chemistry Sodium (137 - 145 mmol/L) 143 Potassium (3.5 - 5.1 mmol/L) 3.7 Chloride (98 - 107 mmol/L) 107 Carbon Dioxide (22 - 30 mmol/L) 24 Anion Gap (5 - 16) 11 BUN (9 - 20 mg/dL) 31 H Creatinine (0.7 - 1.2 mg/dL) 0.7 Estimated GFR (>60 ml/min) > 60 Glucose (65 - 99 mg/dL) 117 H Lactic Acid (0.7 - 2.1 mmol/L) 1.5 1.7 Calcium (8.4 - 10.2 mg/dL) 7.4 L Phosphorus (2.5 - 4.5 mg/dL) 3.8 Magnesium (1.6 - 2.3 mg/dL) 1.6 Total Bilirubin (0.2 - 1.3 mg/dL) 1.1 AST (17 - 59 U/L) 24 ALT (21 - 72 U/L) 35 Albumin (3.5 - 5.0 g/dL) 2.6 L Hematology CBC w Diff MAN DIFF ORDERED WBC (4.8 - 10.8 /CUMM) 1.7 L RBC (4.70 - 6.10 /CUMM) 2.21 L Hgb (14.0 - 18.0 G/DL) 6.8 *L Hct (42 - 52 %) 19.8 *L MCV (80.0 - 94.0 FL) 89.8 MCH (27.0 - 31.0 PG) 31.0 MCHC (33.0 - 37.0 G/DL) 34.5 RDW (11.5 - 14.5 %) 14.8 H Plt Count (130 - 400 /CUMM) 41 L MPV (7.4 - 10.4 FL) 7.3 L Gran % (42.2 - 75.2 %) 71.2 Lymphocytes % (20.5 - 51.1 %) 17.3 L Monocytes % (1.7 - 9.3 %) 10.2 H Eosinophils % (0 - 5 %) 1.1 Basophils % (0.0 - 2.0 %) 0.2 Absolute Granulocytes (1.4 - 6.5 /CUMM) 1.2 L Segmented Neutrophils (42.2 - 75.2 %) 63 Band Neutrophils (0.0 - 5.0 %) 6 H Absolute Lymphocytes (1.2 - 3.4 /CUMM) 0.3 L Lymphocytes (20.5 - 51.1 %) 21 Monocytes (1.7 - 9.3 %) 8 Absolute Monocytes (0.10 - 0.60 /CUMM) 0.2 Absolute Eosinophils (0.0 - 0.7 /CUMM) 0 Basophils (0.0 - 2.0 %) 2 Absolute Basophils (0.0 - 0.2 /CUMM) 0 Platelet Estimate (ADEQUATE) DECREASED Normochromic RBCs VERIFIED Poikilocytosis 1+ Ovalocytes 1+ Nazario Cells FEW Other Body Source Fld Total RBCs Counted (%) 100 07/09 1152 Chemistry Sodium (137 - 145 mmol/L) 142 Potassium (3.5 - 5.1 mmol/L) 3.9 Chloride (98 - 107 mmol/L) 104 Carbon Dioxide (22 - 30 mmol/L) 26 Anion Gap (5 - 16) 13 BUN (9 - 20 mg/dL) 35 H Creatinine (0.7 - 1.2 mg/dL) 0.7 Estimated GFR (>60 ml/min) > 60 BUN/Creatinine Ratio (7 - 25 %) 50.0 H Glucose (65 - 99 mg/dL) 110 H Lactic Acid (0.7 - 2.1 mmol/L) 3.1 H Calcium (8.4 - 10.2 mg/dL) 8.3 L Total Bilirubin (0.2 - 1.3 mg/dL) 0.8 AST (17 - 59 U/L) 13 L ALT (21 - 72 U/L) 23 Alkaline Phosphatase (< 127 U/L) 64 Troponin I (<0.11 ng/ml) 0.01 Total Protein (6.3 - 8.2 g/dL) 6.0 L Albumin (3.5 - 5.0 g/dL) 3.1 L Globulin (1.9 - 4.2 gm/dL) 2.9 Albumin/Globulin Ratio (1.1 - 2.2 %) 1.1 Cortisol AM Sample (4.46 - 22.7 ug/dL) 10.7 Coagulation D-Dimer High Sensitivty (0 - 243 ng/ml) < 200 Hematology CBC w Diff MAN DIFF ORDERED WBC (4.8 - 10.8 /CUMM) 0.8 *L RBC (4.70 - 6.10 /CUMM) 2.12 L Hgb (14.0 - 18.0 G/DL) 6.5 *L Hct (42 - 52 %) 19.0 *L MCV (80.0 - 94.0 FL) 89.5 MCH (27.0 - 31.0 PG) 30.5 MCHC (33.0 - 37.0 G/DL) 34.0 RDW (11.5 - 14.5 %) 16.1 H Plt Count (130 - 400 /CUMM) 20 *L MPV (7.4 - 10.4 FL) 8.9 Gran % (42.2 - 75.2 %) 48.6 Lymphocytes % (20.5 - 51.1 %) 38.2 Monocytes % (1.7 - 9.3 %) 10.3 H Eosinophils % (0 - 5 %) 2.5 Basophils % (0.0 - 2.0 %) 0.4 Absolute Granulocytes (1.4 - 6.5 /CUMM) 0.4 L Segmented Neutrophils (42.2 - 75.2 %) 32 L Band Neutrophils (0.0 - 5.0 %) 11 H Absolute Lymphocytes (1.2 - 3.4 /CUMM) 0.3 L Lymphocytes (20.5 - 51.1 %) 52 H Monocytes (1.7 - 9.3 %) 3 Absolute Monocytes (0.10 - 0.60 /CUMM) 0.1 Eosinophils (0 - 5.0 %) 1 Absolute Eosinophils (0.0 - 0.7 /CUMM) 0 Basophils (0.0 - 2.0 %) 1 Absolute Basophils (0.0 - 0.2 /CUMM) 0 Platelet Estimate (ADEQUATE) Hypochromic-Microcytic 2+ Anisocytosis 1+ Imaging/Other Studies: CT Chest/abdomen/pelvis with contrast 11/03/2017: CHEST: Lung: Significant posttreatment changes are seen. There is now linear fibrotic changes in the right lung apex suggesting post radiation treatment. The more discrete nodular opacity along the subpleural aspect of the posterior medial right apex has decreased in prominence from the prior studies currently measuring 1.7 cm maximally. The linear fibrotic changes adjacent to this area again are suggestive of postradiation fibrosis with mild traction bronchiectasis. There is a stable 5 mm stable pulmonary nodule seen in the right middle lobe seen best on axial image 242/510. Linear regions of scarring/fibrosis seen in the dependent lungs. This is superimposed on centrilobular emphysematous changes. Mediastinum: The right paratracheal lymph node currently measures 1.9 cm and short axis diameter which is decreased from 3.4 cm on the 08/26/2017 PET/CT scan. Vascular calculations seen within the aorta and coronary arteries. Pacemaker/AICD leads are noted. Pericardium/Pleura: No significant effusion. No pleural mass or thickening. Chest Wall/Axilla: Unremarkable. ABDOMEN/PELVIS: Peritoneal Space:No significant free air or free fluid identified. Liver, Gallbladder, Biliary Tree: Multiple low-attenuation probable cysts are again seen within the liver. Some of these are too small to characterize further. No biliary ductal dilatation. Gallstone seen within the contracted gallbladder. Pancreas: Unremarkable. Spleen: Unremarkable. Adrenal Glands: Unremarkable. Kidneys and Ureters: Multiple bilateral low-attenuation renal cysts are seen. Generative these measured cystic density although there is a suggestion of a hyperdense cyst measuring approximately 2.5 cm in size in the midpole of the left kidney. This is not significantly changed in size or character from the recent prior studies. Some of the smaller presumed cysts are too small to characterize further. No hydronephrosis or perinephric stranding. Bladder: There is asymmetric bladder wall thickening with focal calcification seen along the posterior left bladder base these tiny calcifications were seen on the prior study as well and a difficult to define further the left hip prosthesis obscures evaluation the bladder otherwise. Gastrointestinal Tract: A few scattered colonic diverticula are seen but there is no evidence for diverticulitis. No obstructive changes to the small bowel. Abdominal Wall: Soft tissue stranding seen within the intra-abdominal wall possibly due to prior injections. Lymphovascular Structures: Vascular calcification within the aorta iliac system. I do not appreciate any significant bulky retroperitoneal or mesenteric adenopathy. Incidental circumaortic left renal vein. Pelvic Viscera: Prostatic calcification in the heterogeneous hypoattenuation to the prostate gland again seen. This is difficult to define further due to beam hardening artifact. Osseus Structures: Multilevel degenerative changes in the spine. I do not appreciate any acute bony lesion. IMPRESSION: Posttreatment changes in the right lung apex suggesting post radiation scarring and fibrosis as described more detail above. I do not appreciate any suspicious area of consolidation. Chronic appearing changes are present within the abdomen and pelvis. Gallstones are seen in the contracted but otherwise unremarkable gallbladder. This is subtle irregularity along the posterolateral left wall of the bladder is difficult to define further due to artifact in this area. Clinical correlation would be helpful. Direct visualization of the bladder may be helpful. There is a hypoattenuation in the region of the prostate again difficult to define further due to the metallic artifact from the left hip prosthesis. Cystic change within the prostate cannot be entirely excluded. This is been present on prior studies which would make prostatic abscess less likely. Clinical correlation would be helpful. Assessment/Plan Assessment: Mr. 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 He has had a temperature of a 100.3. Patient has that fever since Friday with a T-max of 100.3. He did take some Tylenol and temperature slowly improved. He was seen by radiation and sent to the ED for evaluation. On presentation to the emergency department, he was noted to be hypertensive with systolic blood pressure in the 80s. He was given 2 liter of normal saline and started on antibiotics with vancomycin and ceftazidime. Blood pressure improved at that time. He was also noted to be pancytopenic. This may be related to infection and chemotherapy side effect. He was given 2 units of packed RBC. He was also given a unit of pooled platelets. He did receive Neulasta on October 27, 2017. He is at his liv at the moment which is roughly about 10 days out [address] chemotherapy. [address] scan of the chest, abdomen, and pelvis was done and demonstrated improvement in his underlying disease. He does have some irregularity in the bladder. He may need urologic evaluation. Recommendations: Neutropenic fever: -follow up blood cultures -follow up urine cultures -continue current antibiotics as per ID -appreciate ID assistance Pancytopenia: -transfuse with hgb <8 -transfuse with plt <20,000 with fever -no need for G-CSF Stage III small cell carcinoma of left lung: -plan to continue carboplatin/etoposide with possible dose reduction -continue radiation as be radiation oncology -follow up as outpatient Problem List: 1. Sepsis 2. Neutropenic fever 3. Small cell carcinoma of left lung 4. Pancytopenia due to chemotherapy Other Findings/Comments: Please call [phone] with any questions or concerns. Consult Acknowledgment - Thank you for your consult request.
--- NOTE | 2017-11-04 07:27 | PN- Resident CRCU ---
Subjective HPI/CRCU Issues: Neutropenic fever Pancytopenia Extensive small cell lung cancer 24 Hour Events: Absolute neutrophil count improved No identified source of infection Afebrile on vancomycin/ceftazidime Objective Vital Signs & I&O Last 8 Hrs of Vitals and I&O: Intake & Output 11/04 1600 Intake Total Output Total Balance Number 1 Bowel Movements Exam General Appearance: well developed/nourished, no apparent distress, alert, awake , comfortable Respiratory: chest non-tender, no respiratory distress, lungs clear, decreased breath sounds Cardiovascular: regular rate/rhythm, chemo port right chest wall no erythema or evidence of infection left chest wall PPM palpable Gastrointestinal: normal bowel sounds, soft, non-tender, obese Extremities: left lower extremity hematoma, drained, now gauze dressing c/d/i Current Medications: Current Medications Sig/Ta Start time Last Medication Dose Route Stop Time Status Admin Albuterol Sulfate 2 PUF Q4-PRN PRN 11/03 1945 AC INH Carvedilol 6.25 MG BID 11/03 2100 AC 11/04 PO 0756 Ceftazidime 2,000 MG IQ8 11/04 0000 AC 11/04 IV 0756 Ceftazidime 0 .STK-MED ONE 11/03 1440 DC .ROUTE Ceftazidime 2,000 MG ONCE ONE 11/03 1330 DC 11/03 IV 11/03 1331 1430 Finasteride 5 MG DAILY 11/04 09 AC 11/04 PO 0756 Folic Acid 1 MG DAILY 11/04 09 AC 11/04 PO 0756 Furosemide 40 MG DAILY 11/04 899 CAN PO Hydrocortisone 50 MG Q8 11/03 2200 AC 11/04 Sodium Succinate IV 0642 Losartan Potassium 100 MG DAILY 11/04 899 CAN PO Nystatin 1 CLAIRE TIDPRN PRN 11/03 1500 AC TOP Prednisone 5 MG DAILY 11/04 899 CAN PO Sodium Chloride 1,000 ML BOLUS ONE 11/03 1230 DC 11/03 IV 11/03 1329 1435 Sodium Chloride 1,000 ML BOLUS ONE 11/03 1215 DC 11/03 IV 11/03 1314 1250 Vancomycin HCl 1,500 MG Q12H 11/04 0200 AC 11/04 Sodium Chloride 250 ML IV 0132 Vancomycin HCl 1.5 MG Q12 11/03 2100 CAN IV Vancomycin HCl 1,500 MG Q12 11/03 2100 DC Sodium Chloride 250 ML IV Vancomycin HCl 1,000 MG ONCE ONE 11/03 1330 DC 11/03 Sodium Chloride 250 ML IV 11/03 1429 1430 Impression/Plan Impression/Problem List Impression: 67 year old male with 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 Neutropenic fever: Presented with hypotension 80/60, given crystalloid intravascular volume resuscitation ANC was 400, platelets 20,000 Absolute neutrophil count improved to 1200, no longer neutropenic Started on vancomycin 1500mg iv bid, and ceftazidime 2g iv q8h CT of the chest abdomen and pelvis was unrevealing, some irregularities ( prostate/bladder) Chest shows post treatment changed of the right lung apex without consolidation Follow up cultures Infectious disease consulted, follow up recommendations Plan to discontinue antibiotics if cultures remain negative tomorrow Discontinue neutropenic contact precautions Hematology consulted, appreciate recommendations Continue nystatin for groin fungal rash Wound care for left lower leg hematoma (improved) Pancytopenia Anemia-transfused 3 units pRBCs, hemoglobin improved from 6.5 -> 7.8 Thrombocytopenia-transfused 1 pooled unit of platelets, improved from 20,000 -> 47,000 Stop Xarelto for now Atrial fibrillation: Xarelto on hold, restart carvedilol HTN: Resume beta erin, ARB, and lasix with improved blood pressure Relative adrenal insufficiency: Hypotensive and ill without appropriately high random cortisol, on chronic prednisone Decrease hydrocortisone to 25mg q8h, plan to convert back to prednisone Bladder/Prostate abnormalities on CT: Patient is treated as an outpatient urologist for BPH and had a recent unremarkable cysto Urology consultation placed with Dr. Jean BPH: Continue finasteride and flomax COPD: TRC evaluation Continue spiriva RA: Prednisone on hold, continue hydrocortisone Regular diet DVT ppx-ALPs only Full code Problem List: 1. Small cell carcinoma of left lung 2. Pancytopenia due to chemotherapy 3. Neutropenic fever 4. Hypotension 5. Anemia Pain Ratin Tomorrow's Labs & Rationales: cbc, bep Plan DVT/Prophylaxis: mechanical
[2017-11-04 08:00] VITALS: BP 134/64
[2017-11-04 08:31] LABS: PT 15.7 SEC (9.4-12.5); PTT 29 SEC (25-37)
--- NOTE | 2017-11-04 09:09 | PN- CRCU ---
Subjective HPI/Critical Care Issues: Mr. 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 He has had a temperature of a 100.3. He has been more tired and fatigued with the radiation. He denies any nausea or vomiting. He denies any diarrhea. He denies any cough. He denies any dysuria. He denies any new pain. He has no recent sick contact. His chronic groin fungal infection has been treated with nystatin powder, nystatin cream, and fluconazole. He also had a left leg wound which has been healing well. On presentation to the [facility] ED, he was noted to be hypertensive with systolic blood pressure in the 80s. He was given 2 liters of normal saline which improved his blood pressure. WBC was 800. hemoglobin was 6.5 with hematocrit of 19.0. Platelet count was [address]. He was given 2 units of pack RBC and 1 unit pooled platelet. he was started on vancomycin and ceftazidime. He remains afebrile. He he underwent a CT scan of the chest, abdomen, and pelvis. This morning, the patient feels well. He is afebrile. He has no new pain. He denies any significant complaints. His breathing is stable. Still has sig chronic ulcer which is healing Reports: fever, weakness. Denies: chills, malaise. Cardiovascular: Denies: chest pain. Respiratory: Reports: short of breath. Denies: cough, hemoptysis. GI: Denies: diarrhea. Genitourinary: Denies: dysuria. Musculoskeletal: Reports: back pain, muscle pain. Skin: Reports: erythema (LLE, groin). Neurological/Psychological: Denies: confusion. Hematologic/Endocrine: Denies: bleeding. Immunologic/Allergic: Denies: splenectomy, lymphadenopathy. All Other Systems: Reviewed and Negative Objective Current Medications: Current Medications Sig/Ta Start time Last Medication Dose Route Stop Time Status Admin Albuterol Sulfate 2 PUF Q4-PRN PRN 11/03 1945 AC INH Carvedilol 6.25 MG BID 11/03 2100 AC 11/04 PO 0756 Ceftazidime 2,000 MG IQ8 11/04 0000 AC 11/04 IV 0756 Ceftazidime 0 .STK-MED ONE 11/03 1440 DC .ROUTE Ceftazidime 2,000 MG ONCE ONE 11/03 1330 DC 11/03 IV 11/03 1331 1430 Finasteride 5 MG DAILY 11/04 899 AC 11/04 PO 0756 Folic Acid 1 MG DAILY 11/04 09 AC 11/04 PO 0756 Furosemide 40 MG DAILY 11/04 899 CAN PO Hydrocortisone 50 MG Q8 11/03 2200 AC 11/04 Sodium Succinate IV 0642 Losartan Potassium 100 MG DAILY 11/04 899 CAN PO Nystatin 1 CLAIRE TIDPRN PRN 11/03 1500 AC TOP Prednisone 5 MG DAILY 11/04 899 CAN PO Sodium Chloride 1,000 ML BOLUS ONE 11/03 1230 DC 11/03 IV 11/03 1329 1435 Sodium Chloride 1,000 ML BOLUS ONE 11/03 1215 DC 11/03 IV 11/03 1314 1250 Vancomycin HCl 1,500 MG Q12H 11/04 0200 AC 11/04 Sodium Chloride 250 ML IV 0132 Vancomycin HCl 1.5 MG Q12 11/03 2100 CAN IV Vancomycin HCl 1,500 MG Q12 11/03 2100 DC Sodium Chloride 250 ML IV Vancomycin HCl 1,000 MG ONCE ONE 11/03 1330 DC 11/03 Sodium Chloride 250 ML IV 11/03 1429 1430 Vital Signs & I&O Last 24 Hrs of Vitals and I&O: Vital Signs Date Time Temp Pulse Resp B/P B/P Pulse O2 O2 Flow FiO2 Mean Ox Delivery Rate 11/05 799 97.1 70 20 134/64 97 Room Air 11/04 0756 73 163/91 11/04 0000 97.9 70 30 130/70 97 Room Air Room Air 11/03 2222 68 132/86 11/03 1925 Room Air 11/03 1800 97.0 78 26 122/72 96 Room Air Room Air 11/03 1800 96 Room Air Room Air 11/03 1531 98.9 75 20 119/58 97 Room Air 11/03 1349 98.4 80 20 106/55 100 Room Air Room Air 11/03 1301 98.5 75 20 100/54 98 Room Air Room Air 11/03 1259 96 Room Air Room Air 11/03 1158 98.4 71 20 86/50 96 Room Air Room Air 11/03 1125 98.4 76 18 90/60 97 Room Air Intake & Output 11/04 1600 11/04 0800 11/04 0000 Intake Total 1720 800 Output Total 400 Balance 1320 800 Intake, Blood 1420 500 Product Intake, IV 300 Intake, Oral 0 300 Number 0 Bowel Movements Output, Urine 400 Patient 293 lb 293 lb Weight Weight Bed scale Bed scale Measurement Method Laboratory Tests 11/04 11/04 11/03 11/03 0655 0335 1952 1622 Chemistry Sodium (137 - 145 mmol/L) 143 Potassium (3.5 - 5.1 mmol/L) 3.7 Chloride (98 - 107 mmol/L) 107 Carbon Dioxide (22 - 30 mmol/L) 24 Anion Gap (5 - 16) 11 BUN (9 - 20 mg/dL) 31 H Creatinine (0.7 - 1.2 mg/dL) 0.7 Estimated GFR (>60 ml/min) > 60 Glucose (65 - 99 mg/dL) 117 H Lactic Acid (0.7 - 2.1 mmol/L) 1.5 1.7 Calcium (8.4 - 10.2 mg/dL) 7.4 L Phosphorus (2.5 - 4.5 mg/dL) 3.8 Magnesium (1.6 - 2.3 mg/dL) 1.6 Total Bilirubin (0.2 - 1.3 mg/dL) 1.1 AST (17 - 59 U/L) 24 ALT (21 - 72 U/L) 35 Albumin (3.5 - 5.0 g/dL) 2.6 L Coagulation PT (9.4 - 12.5 SEC) 15.7 H INR (0.90 - 1.17) 1.44 H APTT (25 - 37 SEC) 29 Fibrinogen Activity (200 - 393 MG/DL) 367 D-Dimer High Sensitivty (0 - 243 ng/ml) < 200 Hematology CBC w Diff MAN DIFF ORDERED WBC (4.8 - 10.8 /CUMM) 1.7 L RBC (4.70 - 6.10 /CUMM) 2.21 L Hgb (14.0 - 18.0 G/DL) 6.8 *L Hct (42 - 52 %) 19.8 *L MCV (80.0 - 94.0 FL) 89.8 MCH (27.0 - 31.0 PG) 31.0 MCHC (33.0 - 37.0 G/DL) 34.5 RDW (11.5 - 14.5 %) 14.8 H Plt Count (130 - 400 /CUMM) 41 L MPV (7.4 - 10.4 FL) 7.3 L Gran % (42.2 - 75.2 %) 71.2 Lymphocytes % (20.5 - 51.1 %) 17.3 L Monocytes % (1.7 - 9.3 %) 10.2 H Eosinophils % (0 - 5 %) 1.1 Basophils % (0.0 - 2.0 %) 0.2 Absolute Granulocytes (1.4 - 6.5 /CUMM) 1.2 L Segmented Neutrophils (42.2 - 75.2 %) 63 Band Neutrophils (0.0 - 5.0 %) 6 H Absolute Lymphocytes (1.2 - 3.4 /CUMM) 0.3 L Lymphocytes (20.5 - 51.1 %) 21 Monocytes (1.7 - 9.3 %) 8 Absolute Monocytes (0.10 - 0.60 /CUMM) 0.2 Absolute Eosinophils (0.0 - 0.7 /CUMM) 0 Basophils (0.0 - 2.0 %) 2 Absolute Basophils (0.0 - 0.2 /CUMM) 0 Platelet Estimate (ADEQUATE) DECREASED Normochromic RBCs VERIFIED Poikilocytosis 1+ Ovalocytes 1+ [place] Cells FEW Other Body Source Fld Total RBCs Counted (%) 100 07/09 1152 Chemistry Sodium (137 - 145 mmol/L) 142 Potassium (3.5 - 5.1 mmol/L) 3.9 Chloride (98 - 107 mmol/L) 104 Carbon Dioxide (22 - 30 mmol/L) 26 Anion Gap (5 - 16) 13 BUN (9 - 20 mg/dL) 35 H Creatinine (0.7 - 1.2 mg/dL) 0.7 Estimated GFR (>60 ml/min) > 60 BUN/Creatinine Ratio (7 - 25 %) 50.0 H Glucose (65 - 99 mg/dL) 110 H Lactic Acid (0.7 - 2.1 mmol/L) 3.1 H Calcium (8.4 - 10.2 mg/dL) 8.3 L Total Bilirubin (0.2 - 1.3 mg/dL) 0.8 AST (17 - 59 U/L) 13 L ALT (21 - 72 U/L) 23 Alkaline Phosphatase (< 127 U/L) 64 Troponin I (<0.11 ng/ml) 0.01 Total Protein (6.3 - 8.2 g/dL) 6.0 L Albumin (3.5 - 5.0 g/dL) 3.1 L Globulin (1.9 - 4.2 gm/dL) 2.9 Albumin/Globulin Ratio (1.1 - 2.2 %) 1.1 Cortisol AM Sample (4.46 - 22.7 ug/dL) 10.7 Coagulation D-Dimer High Sensitivty (0 - 243 ng/ml) < 200 Hematology CBC w Diff MAN DIFF ORDERED WBC (4.8 - 10.8 /CUMM) 0.8 *L RBC (4.70 - 6.10 /CUMM) 2.12 L Hgb (14.0 - 18.0 G/DL) 6.5 *L Hct (42 - 52 %) 19.0 *L MCV (80.0 - 94.0 FL) 89.5 MCH (27.0 - 31.0 PG) 30.5 MCHC (33.0 - 37.0 G/DL) 34.0 RDW (11.5 - 14.5 %) 16.1 H Plt Count (130 - 400 /CUMM) 20 *L MPV (7.4 - 10.4 FL) 8.9 Gran % (42.2 - 75.2 %) 48.6 Lymphocytes % (20.5 - 51.1 %) 38.2 Monocytes % (1.7 - 9.3 %) 10.3 H Eosinophils % (0 - 5 %) 2.5 Basophils % (0.0 - 2.0 %) 0.4 Absolute Granulocytes (1.4 - 6.5 /CUMM) 0.4 L Segmented Neutrophils (42.2 - 75.2 %) 32 L Band Neutrophils (0.0 - 5.0 %) 11 H Absolute Lymphocytes (1.2 - 3.4 /CUMM) 0.3 L Lymphocytes (20.5 - 51.1 %) 52 H Monocytes (1.7 - 9.3 %) 3 Absolute Monocytes (0.10 - 0.60 /CUMM) 0.1 Eosinophils (0 - 5.0 %) 1 Absolute Eosinophils (0.0 - 0.7 /CUMM) 0 Basophils (0.0 - 2.0 %) 1 Absolute Basophils (0.0 - 0.2 /CUMM) 0 Platelet Estimate (ADEQUATE) Hypochromic-Microcytic 2+ Anisocytosis 1+ Microbiology Date/Time Procedure - Status Source Growth 11/03 1800 Surveillance Culture - RECD UPPER RESP 11/03 1556 Surveillance Culture - COLB GI 11/03 1502 Blood Culture - RECD BLOOD 11/03 1216 Urine Culture - COLB URINE ROUT 11/03 1152 Blood Culture - RECD BLOOD 11/03 1140 Blood Culture - RECD BLOOD Impression/Plan Impression/Plan Impression/Plan: General Appearance: well developed/nourished, no apparent distress, alert, awake , comfortable, obese Head: atraumatic Eyes: Bilateral: PERRL, EOMI. Ears, Nose, Throat: normal pharynx Neck: supple Respiratory: chest non-tender, no respiratory distress, quiet respiration, crackles (At bases) Cardiovascular: regular rate/rhythm, edema Gastrointestinal: normal bowel sounds, soft, non-tender, no organomegaly Extremities: tenderness (right lower extremity), dressing in place on the left lower extremity Neurologic/Psych: awake, alert, oriented x 3 Skin: left lower extremity wound, erythematous rash in groin, chronic venous ulcer CT Chest/abdomen/pelvis with contrast 11/03/2017: CHEST: Lung: Significant posttreatment changes are seen. There is now linear fibrotic changes in the right lung apex suggesting post radiation treatment. The more discrete nodular opacity along the subpleural aspect of the posterior medial right apex has decreased in prominence from the prior studies currently measuring 1.7 cm maximally. The linear fibrotic changes adjacent to this area again are suggestive of postradiation fibrosis with mild traction bronchiectasis. There is a stable 5 mm stable pulmonary nodule seen in the right middle lobe seen best on axial image 242/510. Linear regions of scarring/fibrosis seen in the dependent lungs. This is superimposed on centrilobular emphysematous changes. Mediastinum: The right paratracheal lymph node currently measures 1.9 cm and short axis diameter which is decreased from 3.4 cm on the 08/26/2017 PET/CT scan. Vascular calculations seen within the aorta and coronary arteries. Pacemaker/AICD leads are noted. Pericardium/Pleura: No significant effusion. No pleural mass or thickening. Chest Wall/Axilla: Unremarkable. IMPRESSION: Posttreatment changes in the right lung apex suggesting post radiation scarring and fibrosis as described more detail above. I do not appreciate any suspicious area of consolidation. Chronic appearing changes are present within the abdomen and pelvis. Gallstones are seen in the contracted but otherwise unremarkable gallbladder. This is subtle irregularity along the posterolateral left wall of the bladder is difficult to define further due to artifact in this area. Clinical correlation would be helpful. Direct visualization of the bladder may be helpful. There is a hypoattenuation in the region of the prostate again difficult to define further due to the metallic artifact from the left hip prosthesis. Cystic change within the prostate cannot be entirely excluded. This is been present on prior studies which would make prostatic abscess less likely. Clinical correlation would be helpful. This is a gentleman with multiple than [id number] smoker, CT scan suggestive of significant emphysema with clinically seemed to have severe COPD, chronic venous stasis with pedal edema, paroxysmal atrial fibrillation on Xeralto on multiple medications for heart rate control, previous history of tachycardia induced cardiomyopathy, previous atrial fibrillation status post AV miriam ablation with dual-chamber pacemaker, Obstructive sleep apnea, morbid obesity with recent significant weight loss, very severe rheumatoid arthritis previously on methotrexate, Enbrel, low-dose prednisone, BPH, hypertension, atrial fibrillation on xeralto now recent dx of stage III SCLCA s/p ongoing xrt with chemo carboplatin/etoposide, neulasta with * Febrile neutropenia with pancytopenia, with hypotension improved after ivf, in a gentleman on current chemo, with dyphagia, abnormal bladder by ct, groin bud and chronic nonhealing venous ulcer with recent hematoma of lower ext. Pt is also immunosupp due to chronic steroid use for RA, previous MTX etc, Now improved and ID on board, and pt on broad spectrum abx. S/p agg fluid resusitation * No active pna by ct and ct shows good improvement * COPD severe with no exacerbation or pna * Previous tachycardia-induced cardiomyopathy now with recovered ejection fraction, paroxysmal atrial fibrillation now status post AV miriam ablation with biventricular pacer and AICD, now has recovered his ejection fraction. Has chronic pafib was on xeralto now held * Obstructive sleep apnea on CPAP * Previous Significant rheumatoid arthritis was on triple therapy. (Enbrel, methotrexate, prednisone), now on prednisone * H/o Hypertension, hyperlipidemia, morbid obesity, chronic venous insufficiency with lower extremity edema with chronic ulcer * Dysphagia now improved * Pancytopenia due to chemo improving PLAN Cont abx See ID and heme note Transfuse if hgb less than 8, and platelet less than 20k Hold systemic anticoag Cont steroids Urology to see please call Dressing for his leg ulcer Nystatin Keep in ICu tts 40 mins
[2017-11-04 10:09] LABS: ABSOLUTE BASOPHIL COUNT 0 /CUMM (0.0-0.2); ABSOLUTE EOSINOPHIL COUNT 0 /CUMM (0.0-0.7); ABSOLUTE LYMPH COUNT 0.3 /CUMM (1.2-3.4); ABSOLUTE MONOCYTE COUNT 0.2 /CUMM (0.10-0.60); BASOPHIL % 0.2 % (0.0-2.0); EOSINOPHIL % 0.6 % (0-5); GRANULOCYTE % 79.3 % (42.2-75.2); HEMATOCRIT 22.7 % (42-52); MEAN CORPUSCULAR HGB 30.4 PG (27.0-31.0); MEAN CORPUSCULAR HGB CONC 34.4 G/DL (33.0-37.0); MEAN CORPUSCULAR VOLUME 88.4 FL (80.0-94.0); MEAN PLATELET VOLUME 8.1 FL (7.4-10.4); RBC DISTRIBUTION WIDTH 15.1 % (11.5-14.5); RED BLOOD CELL CT 2.57 /CUMM (4.70-6.10); WHITE BLOOD CELL COUNT 2.5 /CUMM (4.8-10.8)
--- NOTE | 2017-11-04 10:21 | PN- Infect Dx ---
Subjective Subjective: Afebrile on steroids. His blood pressure has remained stable. He offers no complaints. Objective Last 24 Hrs of Vital Signs/I&O Vital Signs Date Time Temp Pulse Resp B/P B/P Pulse O2 O2 Flow FiO2 Mean Ox Delivery Rate 11/04 08 97.1 70 20 134/64 97 Room Air 11/04 0756 73 163/91 07 0000 97.9 70 30 130/70 97 Room Air Room Air 11/03 2222 68 132/86 11/03 1925 Room Air 11/03 1800 97.0 78 26 122/72 96 Room Air Room Air 11/03 1800 96 Room Air Room Air 11/03 1531 98.9 75 20 119/58 97 Room Air 11/03 1349 98.4 80 20 106/55 100 Room Air Room Air 11/03 1301 98.5 75 20 100/54 98 Room Air Room Air 11/03 1259 96 Room Air Room Air 11/03 1158 98.4 71 20 86/50 96 Room Air Room Air 11/03 1125 98.4 76 18 90/60 97 Room Air Intake & Output 11/04 1600 11/04 0800 11/04 0000 Intake Total 1720 800 Output Total 400 Balance 1320 800 Intake, Blood 1420 500 Product Intake, IV 300 Intake, Oral 0 300 Number 0 Bowel Movements Output, Urine 400 Patient 293 lb 293 lb Weight Weight Bed scale Bed scale Measurement Method Physical Exam Other Physical Findings: He appears comfortable in no acute distress Lungs are clear Heart regular rhythm with no murmur Abdomen is obese, soft, nontender with positive bowel sounds Extremities left leg dressing intact Results Last 24 Hours of Lab Results: Laboratory Tests 11/04 11/04 11/04 0940 0655 0335 Chemistry Sodium (137 - 145 mmol/L) 143 Potassium (3.5 - 5.1 mmol/L) 3.7 Chloride (98 - 107 mmol/L) 107 Carbon Dioxide (22 - 30 mmol/L) 24 Anion Gap (5 - 16) 11 BUN (9 - 20 mg/dL) 31 H Creatinine (0.7 - 1.2 mg/dL) 0.7 Estimated GFR (>60 ml/min) > 60 Glucose (65 - 99 mg/dL) 117 H Calcium (8.4 - 10.2 mg/dL) 7.4 L Phosphorus (2.5 - 4.5 mg/dL) 3.8 Magnesium (1.6 - 2.3 mg/dL) 1.6 Total Bilirubin (0.2 - 1.3 mg/dL) 1.1 AST (17 - 59 U/L) 24 ALT (21 - 72 U/L) 35 Albumin (3.5 - 5.0 g/dL) 2.6 L Coagulation PT (9.4 - 12.5 SEC) 15.7 H INR (0.90 - 1.17) 1.44 H APTT (25 - 37 SEC) 29 Fibrinogen Activity (200 - 393 MG/DL) 367 D-Dimer High Sensitivty (0 - 243 ng/ml) < 200 Hematology CBC w Diff Pending MAN DIFF ORDERED WBC (4.8 - 10.8 /CUMM) Pending 1.7 L RBC (4.70 - 6.10 /CUMM) Pending 2.21 L Hgb (14.0 - 18.0 G/DL) Pending 6.8 *L Hct (42 - 52 %) Pending 19.8 *L MCV (80.0 - 94.0 FL) Pending 89.8 MCH (27.0 - 31.0 PG) Pending 31.0 MCHC (33.0 - 37.0 G/DL) Pending 34.5 RDW (11.5 - 14.5 %) Pending 14.8 H Plt Count (130 - 400 /CUMM) Pending 41 L MPV (7.4 - 10.4 FL) Pending 7.3 L Gran % (42.2 - 75.2 %) 71.2 Lymphocytes % (20.5 - 51.1 %) 17.3 L Monocytes % (1.7 - 9.3 %) 10.2 H Eosinophils % (0 - 5 %) 1.1 Basophils % (0.0 - 2.0 %) 0.2 Absolute Granulocytes (1.4 - 6.5 /CUMM) 1.2 L Segmented Neutrophils (42.2 - 75.2 %) 63 Band Neutrophils (0.0 - 5.0 %) 6 H Absolute Lymphocytes (1.2 - 3.4 /CUMM) 0.3 L Lymphocytes (20.5 - 51.1 %) 21 Monocytes (1.7 - 9.3 %) 8 Absolute Monocytes (0.10 - 0.60 /CUMM) 0.2 Absolute Eosinophils (0.0 - 0.7 /CUMM) 0 Basophils (0.0 - 2.0 %) 2 Absolute Basophils (0.0 - 0.2 /CUMM) 0 Platelet Estimate (ADEQUATE) DECREASED Normochromic RBCs VERIFIED Poikilocytosis 1+ Ovalocytes 1+ [place] Cells FEW Other Body Source Fld Total RBCs Counted (%) 100 11/03 1622 1152 Chemistry Sodium (137 - 145 mmol/L) 142 Potassium (3.5 - 5.1 mmol/L) 3.9 Chloride (98 - 107 mmol/L) 104 Carbon Dioxide (22 - 30 mmol/L) 26 Anion Gap (5 - 16) 13 BUN (9 - 20 mg/dL) 35 H Creatinine (0.7 - 1.2 mg/dL) 0.7 Estimated GFR (>60 ml/min) > 60 BUN/Creatinine Ratio (7 - 25 %) 50.0 H Glucose (65 - 99 mg/dL) 110 H Lactic Acid (0.7 - 2.1 mmol/L) 1.5 1.7 3.1 H Calcium (8.4 - 10.2 mg/dL) 8.3 L Total Bilirubin (0.2 - 1.3 mg/dL) 0.8 AST (17 - 59 U/L) 13 L ALT (21 - 72 U/L) 23 Alkaline Phosphatase (< 127 U/L) 64 Troponin I (<0.11 ng/ml) 0.01 Total Protein (6.3 - 8.2 g/dL) 6.0 L Albumin (3.5 - 5.0 g/dL) 3.1 L Globulin (1.9 - 4.2 gm/dL) 2.9 Albumin/Globulin Ratio (1.1 - 2.2 %) 1.1 Cortisol AM Sample (4.46 - 22.7 ug/dL) 10.7 Coagulation D-Dimer High Sensitivty (0 - 243 ng/ml) < 200 Hematology CBC w Diff MAN DIFF ORDERED WBC (4.8 - 10.8 /CUMM) 0.8 *L RBC (4.70 - 6.10 /CUMM) 2.12 L Hgb (14.0 - 18.0 G/DL) 6.5 *L Hct (42 - 52 %) 19.0 *L MCV (80.0 - 94.0 FL) 89.5 MCH (27.0 - 31.0 PG) 30.5 MCHC (33.0 - 37.0 G/DL) 34.0 RDW (11.5 - 14.5 %) 16.1 H Plt Count (130 - 400 /CUMM) 20 *L MPV (7.4 - 10.4 FL) 8.9 Gran % (42.2 - 75.2 %) 48.6 Lymphocytes % (20.5 - 51.1 %) 38.2 Monocytes % (1.7 - 9.3 %) 10.3 H Eosinophils % (0 - 5 %) 2.5 Basophils % (0.0 - 2.0 %) 0.4 Absolute Granulocytes (1.4 - 6.5 /CUMM) 0.4 L Segmented Neutrophils (42.2 - 75.2 %) 32 L Band Neutrophils (0.0 - 5.0 %) 11 H Absolute Lymphocytes (1.2 - 3.4 /CUMM) 0.3 L Lymphocytes (20.5 - 51.1 %) 52 H Monocytes (1.7 - 9.3 %) 3 Absolute Monocytes (0.10 - 0.60 /CUMM) 0.1 Eosinophils (0 - 5.0 %) 1 Absolute Eosinophils (0.0 - 0.7 /CUMM) 0 Basophils (0.0 - 2.0 %) 1 Absolute Basophils (0.0 - 0.2 /CUMM) 0 Platelet Estimate (ADEQUATE) Hypochromic-Microcytic 2+ Anisocytosis 1+ Last 24 Hours of Kali Results: Blood cultures 2 November 03 negative Recent Imaging Studies: CT of the chest, abdomen and pelvis November 03 reveals posttreatment changes in the right lung apex with no suspicious areas of consolidation and subtle irregularity along the posterior lateral left wall of the bladder Assessment/Plan ID Impression: Stable, with temperatures remaining normal (on steroids), white blood cell count increasing, now with over 1000 neutrophils, and increasing platelets, status post 1 unit yesterday, though he remains markedly anemic despite 2 units of blood. He is currently on Vancomycin and Ceftazidime but he has no obvious focus of infection and, if his cultures remain negative by the a.m., his antibiotics should be able to be discontinued. Suggestion: 1. Discontinue neutropenic precautions 2. Follow-up recent cultures 3. Continue Vancomycin and Ceftazidime pending above
[2017-11-04 10:25] LABS: PLATELET COUNT 47 /CUMM (130-400)
[2017-11-04 16:00] VITALS: BP 126/68
[2017-11-05] VITALS: BP 122/68
[2017-11-05 03:19] LABS: ABSOLUTE BASOPHIL COUNT 0 /CUMM (0.0-0.2); ABSOLUTE EOSINOPHIL COUNT 0 /CUMM (0.0-0.7); ABSOLUTE GRANULOCYTE CT 5.3 /CUMM (1.4-6.5); ABSOLUTE LYMPH COUNT 0.5 /CUMM (1.2-3.4); ABSOLUTE MONOCYTE COUNT 0.5 /CUMM (0.10-0.60); BASOPHIL % 0.5 % (0.0-2.0); EOSINOPHIL % 0.5 % (0-5); GRANULOCYTE % 83.3 % (42.2-75.2); HEMATOCRIT 26.2 % (42-52); MEAN CORPUSCULAR HGB CONC 33.7 G/DL (33.0-37.0); MEAN PLATELET VOLUME 8.8 FL (7.4-10.4); PLATELET COUNT 30 /CUMM (130-400); RBC DISTRIBUTION WIDTH 15.3 % (11.5-14.5); RED BLOOD CELL CT 2.94 /CUMM (4.70-6.10)
[2017-11-05 03:24] LABS: WHITE BLOOD CELL COUNT 6.4 /CUMM (4.8-10.8)
--- NOTE | 2017-11-05 07:18 | PN- Resident CRCU ---
Subjective HPI/CRCU Issues: Neutropenic fever Pancytopenia 24 Hour Events: No overnight events, cultures negative, antibiotics discontinued this morning, afebrile Tranfused 4th unit pRBCs with improved hemoglobin and hematocrit on CBC this morning no complaints today, other than chronic dry cough, no respiratory distress Objective Vital Signs & I&O Last 8 Hrs of Vitals and I&O: Temp 97.4 HR 72 RR 20 BP 140/80 SpO2 96 RA Exam General Appearance: well developed/nourished, no apparent distress, alert, awake , comfortable Cardiovascular: regular rate/rhythm, normal peripheral pulses Gastrointestinal: normal bowel sounds, soft, non-tender Extremities: normal inspection, normal capillary refill, no edema, left anterior lower extremity, serous drainage from wound without erythema Other Physical Findings: fungal rash in groin Current Medications: Current Medications Sig/Ta Start time Last Medication Dose Route Stop Time Status Admin Albuterol Sulfate 2 PUF Q4-PRN PRN 11/03 1945 AC INH Calcium Carbonate 650 MG BID 11/04 2100 DC 11/05 PO 11/05 0901 0725 Carvedilol 6.25 MG BID 11/04 2100 AC 11/05 PO 0725 Carvedilol 6.25 MG BID 11/03 2100 DC 11/04 PO 0756 Ceftazidime 2,000 MG IQ8 11/04 0000 DC 11/05 IV 0725 Finasteride 5 MG DAILY 11/04 09 AC 11/05 PO 0724 Folic Acid 1 MG DAILY 11/04 09 AC 11/05 PO 0724 Furosemide 40 MG DAILY 11/05 0900 AC 11/05 PO 0724 Hydrocortisone 25 MG Q8 11/04 1400 AC 11/05 Sodium Succinate IV 0642 Hydrocortisone 50 MG Q8 11/03 2200 DC 11/04 Sodium Succinate IV 0642 Losartan Potassium 50 MG DAILY 11/05 09 DC PO Losartan Potassium 50 MG DAILY 11/05 0900 AC 11/05 PO 0725 Nystatin 1 CLAIRE TIDPRN PRN 11/03 1500 AC TOP Potassium Chloride 40 MEQ ONCE ONE 11/05 899 DC 11/05 PO 11/05 0901 0906 Tamsulosin HCl 0.4 MG BID 11/04 1257 AC 11/05 PO 0725 Tiotropium [place] 1 PUF DAILY 11/05 0900 AC 11/05 INH 0725 Vancomycin HCl 1,500 MG Q12H 07/10 0200 DC 11/05 Sodium Chloride 250 ML IV 0300 Impression/Plan Impression/Problem List Impression: 67 year old male with 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 Neutropenic fever: Presented with hypotension 80/60, given crystalloid intravascular volume resuscitation ANC was 400, platelets 20,000, No longer neutropenic, improved spontaneously w/ Neulasta Was on vancomycin 1500mg iv bid, and ceftazidime 2g iv q8h, stopped this morning CT of the chest abdomen and pelvis was unrevealing, some irregularities ( prostate/bladder) Chest shows post treatment changed of the right lung apex without consolidation Blood cultures negative, antibiotics discontinued Infectious disease consulted, follow up recommendations Hematology consulted, appreciate recommendations Continue nystatin for groin fungal rash Wound care for left lower leg hematoma Pancytopenia Anemia-transfused 4 units pRBCs, hemoglobin improved from 6.5 -8 7.8 Thrombocytopenia-transfused 1 pooled unit of platelets, improved from 20,000 -> 47,000 Stop Xarelto for now Atrial fibrillation: Xarelto on hold, restart carvedilol HTN: Resumed beta erin, ARB, and lasix Relative adrenal insufficiency: Hypotensive and ill without appropriately high random cortisol, on chronic prednisone Decrease hydrocortisone to 25mg q8h, convert back to prednisone on discharge Bladder/Prostate abnormalities on CT: Patient is treated as an outpatient urologist for BPH and had a recent unremarkable cysto Urology consultation placed with Dr. Jean BPH: Continue finasteride and flomax COPD: TRC evaluation Continue spiriva RA: Prednisone on hold, continue hydrocortisone Regular diet DVT ppx-ALPs only Full code Problem List: 1. COPD (chronic obstructive pulmonary disease) 2. Small cell carcinoma of left lung 3. Pancytopenia due to chemotherapy 4. Sepsis 5. Hypotension 6. Neutropenic fever 7. Anemia 8. Thrombocytopenia Pain Ratin Tomorrow's Labs & Rationales: n/a Plan DVT/Prophylaxis: mechanical
--- NOTE | 2017-11-05 07:30 | PN- Oncology ---
Subjective Subjective: He is feeling well. He denies any new symptoms. He does get short of breath with exertion. He has no fever or chills. He has no nausea or vomiting. His leg wound and groin are stable. Review of Systems Constitutional: Denies: chills, fever, weakness. Cardiovascular: Denies: chest pain. Respiratory: Reports: short of breath. Denies: cough. Gastrointestinal: Denies: abdominal pain, diarrhea, melena, nausea, vomiting. Musculoskeletal: Reports: back pain. Denies: muscle pain. Hematologic/Endocrine: Reports: bruising. Denies: bleeding. Objective Vital Signs and I&Os Vital Signs Date Time Temp Pulse Resp B/P B/P Pulse O2 O2 Flow FiO2 Mean Ox Delivery Rate 11/05 0000 97.8 70 26 122/68 97 Room Air Room Air 11/04 2012 71 118/70 11/04 1600 96.7 72 20 126/68 97 Room Air 11/04 1357 77 103/48 11/04 0800 97.1 70 20 134/64 97 Room Air 11/04 0756 73 163/91 Intake & Output 11/05 0811/05 0000 11/04 1600 11/04 0800 11/04 0000 11/03 1600 Intake Total 535 794 041 1191 800 2000 Output Total 400 Balance 535 229 015 4684 800 2000 Intake, Blood 890 235 0222 500 Product Intake, IV 30 40 261 746 6868 Intake, Oral 200 480 480 0 300 Number 1 2 0 Bowel Movements Output, Urine 400 Patient 134.377 kg 132.903 kg 133.129 kg 134.717 kg Weight Weight Bed scale Bed scale Bed scale Measurement Method Physical Exam: General Appearance: well developed/nourished, no apparent distress, alert, awake , comfortable, obese Head: atraumatic Ears, Nose, Throat: normal pharynx Respiratory: chest non-tender, no respiratory distress, quiet respiration, crackles (At bases) Cardiovascular: regular rate/rhythm, edema Gastrointestinal: normal bowel sounds, soft, non-tender, no organomegaly Extremities: tenderness (right lower extremity), dressing in place on the left lower extremity Neurologic/Psych: awake, alert, oriented x 3 Skin: left lower extremity wound dry and intact Current Medications: Current Medications Sig/Ta Start time Last Medication Dose Route Stop Time Status Admin Albuterol Sulfate 2 PUF Q4-PRN PRN 07/09 1945 AC INH Calcium Carbonate 650 MG BID 11/04 2100 AC 11/05 PO 11/05 0901 0725 Carvedilol 6.25 MG BID 11/04 2100 AC 11/05 PO 0725 Carvedilol 6.25 MG BID 11/03 2100 DC 11/04 PO 0756 Ceftazidime 2,000 MG IQ8 11/04 0000 AC 11/05 IV 0725 Finasteride 5 MG DAILY 11/04 09 AC 11/05 PO 0724 Folic Acid 1 MG DAILY 11/04 0900 AC 11/05 PO 0724 Furosemide 40 MG DAILY 11/05 0900 AC 11/05 PO 0724 Hydrocortisone 25 MG Q8 11/04 1400 AC 11/05 Sodium Succinate IV 0642 Hydrocortisone 50 MG Q8 11/03 2200 DC 11/04 Sodium Succinate IV 0642 Losartan Potassium 50 MG DAILY 11/05 09 DC PO Losartan Potassium 50 MG DAILY 11/05 09 AC 11/05 PO 0725 Nystatin 1 CLAIRE TIDPRN PRN 11/03 1500 AC TOP Tamsulosin HCl 0.4 MG BID 11/04 1257 AC 11/05 PO 0725 Tiotropium [place] 1 PUF DAILY 11/05 09 AC 11/05 INH 0725 Vancomycin HCl 1,500 MG Q12H 11/04 0200 AC 11/05 Sodium Chloride 250 ML IV 0300 Results Last 24 Hours of Lab Results: Laboratory Tests 11/05 11/04 0305 0940 Chemistry Sodium (137 - 145 mmol/L) 144 Potassium (3.5 - 5.1 mmol/L) 3.8 Chloride (98 - 107 mmol/L) 108 H Carbon Dioxide (22 - 30 mmol/L) 23 Anion Gap (5 - 16) 13 BUN (9 - 20 mg/dL) 28 H Creatinine (0.7 - 1.2 mg/dL) 0.7 Estimated GFR (>60 ml/min) > 60 BUN/Creatinine Ratio (7 - 25 %) 40.0 H Hematology CBC w Diff MAN DIFF ORDERED NO MAN DIFF REQ WBC (4.8 - 10.8 /CUMM) 6.4 2.5 L RBC (4.70 - 6.10 /CUMM) 2.94 L 2.57 L Hgb (14.0 - 18.0 G/DL) 8.8 L 7.8 L Hct (42 - 52 %) 26.2 L 22.7 L MCV (80.0 - 94.0 FL) 89.0 88.4 MCH (27.0 - 31.0 PG) 30.0 30.4 MCHC (33.0 - 37.0 G/DL) 33.7 34.4 RDW (11.5 - 14.5 %) 15.3 H 15.1 H Plt Count (130 - 400 /CUMM) 30 L 47 L MPV (7.4 - 10.4 FL) 8.8 8.1 Gran % (42.2 - 75.2 %) 83.3 H 79.3 H Lymphocytes % (20.5 - 51.1 %) 7.5 L 10.9 L Monocytes % (1.7 - 9.3 %) 8.2 9.0 Eosinophils % (0 - 5 %) 0.5 0.6 Basophils % (0.0 - 2.0 %) 0.5 0.2 Absolute Granulocytes (1.4 - 6.5 /CUMM) 5.3 2.0 Segmented Neutrophils (42.2 - 75.2 %) 75 Band Neutrophils (0.0 - 5.0 %) 3 Absolute Lymphocytes (1.2 - 3.4 /CUMM) 0.5 L 0.3 L Lymphocytes (20.5 - 51.1 %) 14 L Monocytes (1.7 - 9.3 %) 6 Absolute Monocytes (0.10 - 0.60 /CUMM) 0.5 0.2 Eosinophils (0 - 5.0 %) 1 Absolute Eosinophils (0.0 - 0.7 /CUMM) 0 0 Absolute Basophils (0.0 - 0.2 /CUMM) 0 0 Metamyelocytes (0.0 - 1.0 %) 1 Platelet Estimate (ADEQUATE) DECREASED Normochromic RBCs VERIFIED Ovalocytes FEW Other Body Source Fld Total RBCs Counted (%) 100 Assessment/Plan Assessment/Recommendations: Mr. Dillon is a 67-year-old male with stage III small cell carcinoma of the right lung currently receiving XRT and carboplatin/etoposide (last on 10/22-10/24, cycle 3, Neulasta on 10/27), COPD, RA on prednisone and methotrexate, atrial fibrillation on rivaroxaban, pacemaker, and BPH who presented to [facility] emergency department after being seen by radiation oncology with 2 to 3 days of chills, fever, and malaise. He has had a temperature of a 100.3. Patient has that fever since Friday with a T-max of 100.3. He did take some Tylenol and temperature slowly improved. He was seen by radiation and sent to the ED for evaluation. On presentation to the emergency department, he was noted to be hypertensive with systolic blood pressure in the 80s. He was given 2 liter of normal saline and started on antibiotics with vancomycin and ceftazidime. Blood pressure improved at that time. He was also noted to be pancytopenic. This may be related to infection and chemotherapy side effect. CT scan of the chest, abdomen, and pelvis was done and demonstrated improvement in his underlying disease. He does have some irregularity in the bladder. He may need urologic evaluation. He has received 4 units of pRBC. He feels better. He is afebrile. Blood cultures are negative. WBC has recovered. Platelet count will likely recover later. He may be taken off antibiotics. Neutropenic fever: -follow up blood cultures -follow up urine cultures -may discontinue antibiotics -appreciate ID assistance Pancytopenia: -transfuse with hgb <8 -transfuse with plt <10,000 Stage III small cell carcinoma of left lung: -plan to continue carboplatin/etoposide with likely dose reduction -continue radiation as be radiation oncology -follow up as outpatient Please call [phone] with any questions or concerns. Problem List: 1. Pancytopenia due to chemotherapy 2. Small cell carcinoma of left lung 3. Neutropenic fever 4. Anemia
[2017-11-05 08:00] VITALS: BP 140/80
--- NOTE | 2017-11-05 08:59 | Patient Discharge Instructions ---
Discharge Instructions General Discharge Information You were seen/treated for: neutropenic fever pancytopenia, low blood counts Special Instructions: You had neutropenia from chemotherapy and a fever that was treated with broad spectrum antibiotics. There was no identifiable source of infection, WBC improved, cultures were negative, antibiotics were stopped. All your blood counts were low and you had tranfusion of blood and platelets. Follow up with your oncologist and primary care physician. Take 10mg of prednisone for 3 days then continue 5mg daily. Acute Coronary Syndrome Inclusion Criteria At DC or during hospital stay patient has or had the following: ACS DIAGNOSIS No Discharge Core Measures Meds if any: Prescribed or Continued at Discharge Meds if any: NOT Prescribed or Continued at Discharge Congestive Heart Failure Inclusion Criteria At DC or during hospital stay patient has or had the following: CHF DIAGNOSIS No Discharge Core Measures Meds if any: Prescribed or Continued at Discharge Meds if any: NOT Prescribed or Continued at Discharge Cerebrovascular accident Inclusion Criteria At DC or during hospital stay patient has or had the following: CVA/TIA Diagnosis No Discharge Core Measures Meds if any: Prescribed or Continued at Discharge Meds if any: NOT Prescribed or Continued at Discharge Venous thromboembolism Inclusion Criteria VTE Diagnosis No VTE Type NONE VTE Confirmed by (Test) NONE Discharge Core Measures - Per Current guidelines, there needs to be overlap - treatment for the first 5 days of Warfarin therapy. - If discharged on Warfarin prior to 5 days of - overlap therapy, the patient will need to be - assessed for post discharge needs including - *Post discharge parental anticoagulation - *Warfarin and/or parental anticoagulation education - *Follow up date to check INR post discharge At least 5 days overlap therapy as Inpatient No Meds if any: Prescribed or Continued at Discharge Note: Overlap Therapy is Warfarin and Anticoagulant Meds if any: NOT Prescribed or Continued at Discharge
--- NOTE | 2017-11-05 09:00 | Discharge Summary ---
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 He came in with a systolic blood pressure of 80mmHg, an absolute neutrophil count of 300 , hemoglobin of 6.5, and platelet counts of 20,000. He was given two liter crystalloid bolus, blood cultures performed, and started on broad spectrum antibiotics with vancomycin and ceftazidime. He underwent CT imaging of the chest abdomen and pelvis that was unrevealing for any source of infection, it did show a bladder irregularity, but the patient reported a recent unremarkable cystoscopy for his BPH. He was admitted to critical care for management of neutropenic fever and pancytopenia. Infectious disease and hematology/oncology were consulted. He was also given stress dose hydrocortisone for hypotension and chronic steroid use. He was given transfusions with four units of packed red blood cells and one unit pooled platelets. His hemoglobin improved to 8.8 and platelets to 47,00 but decreased to 30,000 the day of discharge. His neutropenia resolved and his absolutely neutrophil count was 5,300 the day of discharge. After his cultures returned negative, antibiotics were discontinued. He had a fungal rash in his groin managed with Nystatin and a left lower extremity hematoma that was significant improved after drainage two months ago without evidence of active infection. The patient was discharged off antibiotics and increased his prednisone to 10mg for 3 days before continuing his home dose of 5mg. He was instructed to stop Xarelto until he had undergone a complete blood count with platelet counts greater than fifty thousand. He will follow up with his primary care physician and oncologists. He may need a reduced dose of chemotherapy going forward. Allergies: Coded Allergies: No Known Allergies (08/01/17) Significant Procedures: SERVICE DATE: 11/03/17- EXAM TYPE: CAT - CT ABD & PELVIS W IV CONTRAST; CT CHEST W IV CONTRAST EXAMINATION: CT CHEST, ABDOMEN AND PELVIS WITH CONTRAST. CLINICAL INFORMATION: ACUTE INFECTIOUS PATHOLOGY,HX OF SCLC . COMPARISON: Prior studies including the 08/26/2017 PET/CT scan and the 08/01/2017 CT scan. TECHNIQUE: Multidetector volumetric imaging was performed from the thoracic inlet through the pubic symphysis following administration of 95 ml of Optiray 320. Sagittal and coronal reformatted images were obtained on the technologist's workstation. DLP: 1809 mGy-cm FINDINGS: CHEST: Lung: Significant posttreatment changes are seen. There is now linear fibrotic changes in the right lung apex suggesting post radiation treatment. The more discrete nodular opacity along the subpleural aspect of the posterior medial right apex has decreased in prominence from the prior studies currently measuring 1.7 cm maximally. The linear fibrotic changes adjacent to this area again are suggestive of postradiation fibrosis with mild traction bronchiectasis. There is a stable 5 mm stable pulmonary nodule seen in the right middle lobe seen best on axial image 242/510. Linear regions of scarring/fibrosis seen in the dependent lungs. This is superimposed on centrilobular emphysematous changes. Mediastinum: The right paratracheal lymph node currently measures 1.9 cm and short axis diameter which is decreased from 3.4 cm on the 08/26/2017 PET/CT scan. Vascular calculations seen within the aorta and coronary arteries. Pacemaker/AICD leads are noted. Pericardium/Pleura: No significant effusion. No pleural mass or thickening. Chest Wall/Axilla: Unremarkable. ABDOMEN/PELVIS: Peritoneal Space:No significant free air or free fluid identified. Liver, Gallbladder, Biliary Tree: Multiple low-attenuation probable cysts are again seen within the liver. Some of these are too small to characterize further. No biliary ductal dilatation. Gallstone seen within the contracted gallbladder. Pancreas: Unremarkable. Spleen: Unremarkable. Adrenal Glands: Unremarkable. Kidneys and Ureters: Multiple bilateral low-attenuation renal cysts are seen. Generative these measured cystic density although there is a suggestion of a hyperdense cyst measuring approximately 2.5 cm in size in the midpole of the left kidney. This is not significantly changed in size or character from the recent prior studies. Some of the smaller presumed cysts are too small to characterize further. No hydronephrosis or perinephric stranding. Bladder: There is asymmetric bladder wall thickening with focal calcification seen along the posterior left bladder base these tiny calcifications were seen on the prior study as well and a difficult to define further the left hip prosthesis obscures evaluation the bladder otherwise. Gastrointestinal Tract: A few scattered colonic diverticula are seen but there is no evidence for diverticulitis. No obstructive changes to the small bowel. Abdominal Wall: Soft tissue stranding seen within the intra-abdominal wall possibly due to prior injections Lymphovascular Structures: Vascular calcification within the aorta iliac system. I do not appreciate any significant bulky retroperitoneal or mesenteric adenopathy. Incidental circumaortic left renal vein. Pelvic Viscera: Prostatic calcification in the heterogeneous hypoattenuation to the prostate gland again seen. This is difficult to define further due to beam hardening artifact. Osseus Structures: Multilevel degenerative changes in the spine. I do not appreciate any acute bony lesion. IMPRESSION: Posttreatment changes in the right lung apex suggesting post radiation scarring and fibrosis as described more detail above. I do not appreciate any suspicious area of consolidation. Chronic appearing changes are present within the abdomen and pelvis. Gallstones are seen in the contracted but otherwise unremarkable gallbladder. This is subtle irregularity along the posterolateral left wall of the bladder is difficult to define further due to artifact in this area. Clinical correlation would be helpful. Direct visualization of the bladder may be helpful. There is a hypoattenuation in the region of the prostate again difficult to define further due to the metallic artifact from the left hip prosthesis. Cystic change within the prostate cannot be entirely excluded. This is been present on prior studies which would make prostatic abscess less likely. Clinical correlation would be helpful. Disposition Summary Disposition Principal Diagnosis: Neutropenic fever Pancytopenia, from chemotherappy, requiring transfusion with packed red blood cells and platelets Additional Diagnosis: Extensive small cell lung cancer Rheumatoid arthritis on daily prednisone Atrial fibrillation on Xarelto HTN BPH Discharge Disposition: home or self care Discharge Instructions General Discharge Information Code Status: Full Code Patient's Diet: Heart healthy Patient's Activity: As tolerated Follow-Up Instructions/Appts: Please follow up with your primary care physician and oncologist after discharge. Medications at Discharge Discharge Medications: Stop taking the following medications: Rivaroxaban (Xarelto) 20 MG TABLET ORAL DAILY Continue taking these medications: Finasteride (Finasteride) 5 MG TABLET 1 Tablet ORAL DAILY Qty = 90 Comments: Last Taken: 11/05/17 Time: 7:30 AM Carvedilol (Carvedilol) 6.25 MG TABLET 1 Tablet ORAL TWICE DAILY Qty = 180 Comments: Last Taken: 11/05/17 Time: 7:30 AM Multivit-Min/FA/Lycopen/Lutein (Centrum Silver Tablet) 0.4 MG-300 MCG-250 MCG TABLET 1 Tablet ORAL DAILY Comments: DID NOT RECEIVE IN HOSPITAL Folic Acid (Folic Acid) 1 MG TABLET 1 Tablet ORAL DAILY Qty = 90 Comments: Last Taken: 11/05/17 Time: 7:30 AM Furosemide (Furosemide) 40 MG TABLET 1 Tablet ORAL DAILY Qty = 90 Comments: Last Taken: 11/05/17 Time: 7:30 AM Olmesartan Medoxomil (Benicar) 40 MG TABLET 1 Tablet ORAL DAILY Qty = 90 Comments: Last Taken: 11/05/17 Time: 7:30 AM [facility] Potassium Chloride (Klor-Con M10) 10 MEQ TAB.ER.PRT 1 Tablet ORAL DAILY Qty = 90 Comments: Last Taken: 11/05/17 TimE: 9:00 AM Prednisone (Prednisone) 5 MG TABLET 1 Tablet ORAL DAILY Qty = 120 Comments: Last Taken: 11/05/17 Time: 6:00 AM RECEIVED IV STEROIDS THIS MORNING Albuterol Sulfate (Ventolin Hfa) 90 MCG HFA.AER.AD 2 Puff Inhale through mouth EVERY 6 HOURS NEEDED as needed for SHORTNESS OF BREATH Qty = 18 Comments: DID NOT RECEIVE IN HOSPITAL Cholecalciferol (Vitamin D3) 1,000 UNIT TABLET 1 Tablet ORAL DAILY Comments: DID NOT RECEIVE IN HOSPITAL Tiotropium [place] (Spiriva) 18 MCG CAP.W.DEV 1 Capsule Inhale through mouth DAILY Qty = 30 Instructions: . Comments: Last Taken: 11/05/17 Time: 7:30 AM Clotrimazole (Clotrimazole) 1 % CREAM..G. 1 Application On the skin TWICE DAILY Instructions: apply to affected area(s) Comments: DID NOT RECEIVE IN HOSPITAL Nystatin (Nystatin) 100,000 UNIT/GRAM POWDER 1 Application On the skin 4 TIMES A DAY Qty = 180 Comments: DID NOT RECEIVE IN HOSPITAL Prochlorperazine Maleate (Prochlorperazine Maleate) 10 MG TABLET 1 Tablet ORAL EVERY SIX HOURS as needed for NAUSEA/VOMITING Qty = 60 Comments: DID NOT RECEIVE IN HOSPITAL Tamsulosin HCl (Tamsulosin HCl) 0.4 MG CAP.ER.24H 1 Capsule ORAL TWICE DAILY Qty = 60 Comments: Last Taken: 11/05/17 Time: 7:30 AM Tramadol HCl (Tramadol HCl) 50 MG TABLET 1 Tablet ORAL EVERY 4 HOURS NEEDED as needed for PAIN Comments: DID NOT RECEIVE IN HOSPITAL Copies To: Shannan BAEZ,Aiden Alvarez; Zoraida BAEZ,Al Attending MD Review Statement Documenting Attending: Stalin BAEZ,Hardy Singh
--- NOTE | 2017-11-05 10:04 | PN- Pulmonary ---
Subjective HPI/Critical Care Issues: He is feeling well. He denies any new symptoms. He does get short of breath with exertion. He has no fever or chills. He has no nausea or vomiting. His leg wound and groin are stable. Review of Systems Constitutional: Denies: chills, fever, weakness. Cardiovascular: Denies: chest pain. Respiratory: Reports: short of breath. Denies: cough. Gastrointestinal: Denies: abdominal pain, diarrhea, melena, nausea, vomiting. Musculoskeletal: Reports: back pain. Denies: muscle pain. Hematologic/Endocrine: Reports: bruising. Denies: bleeding. Laboratory Tests 11/05 11/04 0305 0940 Chemistry Sodium (137 - 145 mmol/L) 144 Potassium (3.5 - 5.1 mmol/L) 3.8 Chloride (98 - 107 mmol/L) 108 H Carbon Dioxide (22 - 30 mmol/L) 23 Anion Gap (5 - 16) 13 BUN (9 - 20 mg/dL) 28 H Creatinine (0.7 - 1.2 mg/dL) 0.7 Estimated GFR (>60 ml/min) > 60 BUN/Creatinine Ratio (7 - 25 %) 40.0 H Hematology CBC w Diff MAN DIFF ORDERED NO MAN DIFF REQ WBC (4.8 - 10.8 /CUMM) 6.4 2.5 L RBC (4.70 - 6.10 /CUMM) 2.94 L 2.57 L Hgb (14.0 - 18.0 G/DL) 8.8 L 7.8 L Hct (42 - 52 %) 26.2 L 22.7 L MCV (80.0 - 94.0 FL) 89.0 88.4 MCH (27.0 - 31.0 PG) 30.0 30.4 MCHC (33.0 - 37.0 G/DL) 33.7 34.4 RDW (11.5 - 14.5 %) 15.3 H 15.1 H Plt Count (130 - 400 /CUMM) 30 L 47 L MPV (7.4 - 10.4 FL) 8.8 8.1 Gran % (42.2 - 75.2 %) 83.3 H 79.3 H Lymphocytes % (20.5 - 51.1 %) 7.5 L 10.9 L Monocytes % (1.7 - 9.3 %) 8.2 9.0 Eosinophils % (0 - 5 %) 0.5 0.6 Basophils % (0.0 - 2.0 %) 0.5 0.2 Absolute Granulocytes (1.4 - 6.5 /CUMM) 5.3 2.0 Segmented Neutrophils (42.2 - 75.2 %) 75 Band Neutrophils (0.0 - 5.0 %) 3 Absolute Lymphocytes (1.2 - 3.4 /CUMM) 0.5 L 0.3 L Lymphocytes (20.5 - 51.1 %) 14 L Monocytes (1.7 - 9.3 %) 6 Absolute Monocytes (0.10 - 0.60 /CUMM) 0.5 0.2 Eosinophils (0 - 5.0 %) 1 Absolute Eosinophils (0.0 - 0.7 /CUMM) 0 0 Absolute Basophils (0.0 - 0.2 /CUMM) 0 0 Metamyelocytes (0.0 - 1.0 %) 1 Platelet Estimate (ADEQUATE) DECREASED Normochromic RBCs VERIFIED Ovalocytes FEW Other Body Source Fld Total RBCs Counted (%) 100 11/04 11/04 11/03 11/03 0655 0335 195 1622 Chemistry Sodium (137 - 145 mmol/L) 143 Potassium (3.5 - 5.1 mmol/L) 3.7 Chloride (98 - 107 mmol/L) 107 Carbon Dioxide (22 - 30 mmol/L) 24 Anion Gap (5 - 16) 11 BUN (9 - 20 mg/dL) 31 H Creatinine (0.7 - 1.2 mg/dL) 0.7 Estimated GFR (>60 ml/min) > 60 Glucose (65 - 99 mg/dL) 117 H Lactic Acid (0.7 - 2.1 mmol/L) 1.5 1.7 Calcium (8.4 - 10.2 mg/dL) 7.4 L Phosphorus (2.5 - 4.5 mg/dL) 3.8 Magnesium (1.6 - 2.3 mg/dL) 1.6 Total Bilirubin (0.2 - 1.3 mg/dL) 1.1 AST (17 - 59 U/L) 24 ALT (21 - 72 U/L) 35 Albumin (3.5 - 5.0 g/dL) 2.6 L Coagulation PT (9.4 - 12.5 SEC) 15.7 H INR (0.90 - 1.17) 1.44 H APTT (25 - 37 SEC) 29 Fibrinogen Activity (200 - 393 MG/DL) 367 D-Dimer High Sensitivty (0 - 243 ng/ml) < 200 Hematology CBC w Diff MAN DIFF ORDERED WBC (4.8 - 10.8 /CUMM) 1.7 L RBC (4.70 - 6.10 /CUMM) 2.21 L Hgb (14.0 - 18.0 G/DL) 6.8 *L Hct (42 - 52 %) 19.8 *L MCV (80.0 - 94.0 FL) 89.8 MCH (27.0 - 31.0 PG) 31.0 MCHC (33.0 - 37.0 G/DL) 34.5 RDW (11.5 - 14.5 %) 14.8 H Plt Count (130 - 400 /CUMM) 41 L MPV (7.4 - 10.4 FL) 7.3 L Gran % (42.2 - 75.2 %) 71.2 Lymphocytes % (20.5 - 51.1 %) 17.3 L Monocytes % (1.7 - 9.3 %) 10.2 H Eosinophils % (0 - 5 %) 1.1 Basophils % (0.0 - 2.0 %) 0.2 Absolute Granulocytes (1.4 - 6.5 /CUMM) 1.2 L Segmented Neutrophils (42.2 - 75.2 %) 63 Band Neutrophils (0.0 - 5.0 %) 6 H Absolute Lymphocytes (1.2 - 3.4 /CUMM) 0.3 L Lymphocytes (20.5 - 51.1 %) 21 Monocytes (1.7 - 9.3 %) 8 Absolute Monocytes (0.10 - 0.60 /CUMM) 0.2 Absolute Eosinophils (0.0 - 0.7 /CUMM) 0 Basophils (0.0 - 2.0 %) 2 Absolute Basophils (0.0 - 0.2 /CUMM) 0 Platelet Estimate (ADEQUATE) DECREASED Normochromic RBCs VERIFIED Poikilocytosis 1+ Ovalocytes 1+ [place] Cells FEW Other Body Source Fld Total RBCs Counted (%) 100 07/09 07 1216 1152 Chemistry Sodium (137 - 145 mmol/L) 142 Potassium (3.5 - 5.1 mmol/L) 3.9 Chloride (98 - 107 mmol/L) 104 Carbon Dioxide (22 - 30 mmol/L) 26 Anion Gap (5 - 16) 13 BUN (9 - 20 mg/dL) 35 H Creatinine (0.7 - 1.2 mg/dL) 0.7 Estimated GFR (>60 ml/min) > 60 BUN/Creatinine Ratio (7 - 25 %) 50.0 H Glucose (65 - 99 mg/dL) 110 H Lactic Acid (0.7 - 2.1 mmol/L) 3.1 H Calcium (8.4 - 10.2 mg/dL) 8.3 L Total Bilirubin (0.2 - 1.3 mg/dL) 0.8 AST (17 - 59 U/L) 13 L ALT (21 - 72 U/L) 23 Alkaline Phosphatase (< 127 U/L) 64 Troponin I (<0.11 ng/ml) 0.01 Total Protein (6.3 - 8.2 g/dL) 6.0 L Albumin (3.5 - 5.0 g/dL) 3.1 L Globulin (1.9 - 4.2 gm/dL) 2.9 Albumin/Globulin Ratio (1.1 - 2.2 %) 1.1 Cortisol AM Sample (4.46 - 22.7 ug/dL) 10.7 Coagulation D-Dimer High Sensitivty (0 - 243 ng/ml) < 200 Hematology CBC w Diff MAN DIFF ORDERED WBC (4.8 - 10.8 /CUMM) 0.8 *L RBC (4.70 - 6.10 /CUMM) 2.12 L Hgb (14.0 - 18.0 G/DL) 6.5 *L Hct (42 - 52 %) 19.0 *L MCV (80.0 - 94.0 FL) 89.5 MCH (27.0 - 31.0 PG) 30.5 MCHC (33.0 - 37.0 G/DL) 34.0 RDW (11.5 - 14.5 %) 16.1 H Plt Count (130 - 400 /CUMM) 20 *L MPV (7.4 - 10.4 FL) 8.9 Gran % (42.2 - 75.2 %) 48.6 Lymphocytes % (20.5 - 51.1 %) 38.2 Monocytes % (1.7 - 9.3 %) 10.3 H Eosinophils % (0 - 5 %) 2.5 Basophils % (0.0 - 2.0 %) 0.4 Absolute Granulocytes (1.4 - 6.5 /CUMM) 0.4 L Segmented Neutrophils (42.2 - 75.2 %) 32 L Band Neutrophils (0.0 - 5.0 %) 11 H Absolute Lymphocytes (1.2 - 3.4 /CUMM) 0.3 L Lymphocytes (20.5 - 51.1 %) 52 H Monocytes (1.7 - 9.3 %) 3 Absolute Monocytes (0.10 - 0.60 /CUMM) 0.1 Eosinophils (0 - 5.0 %) 1 Absolute Eosinophils (0.0 - 0.7 /CUMM) 0 Basophils (0.0 - 2.0 %) 1 Absolute Basophils (0.0 - 0.2 /CUMM) 0 Platelet Estimate (ADEQUATE) Hypochromic-Microcytic 2+ Anisocytosis 1+ Urines Urine Color Cancelled Urine Clarity Cancelled Urine pH Cancelled Ur Specific [place] Cancelled Urine Protein Cancelled Urine Ketones Cancelled Urine Nitrite Cancelled Urine Bilirubin Cancelled Urine Urobilinogen Cancelled Ur Leukocyte Esterase Cancelled Ur Microscopic Cancelled Urine Hemoglobin Cancelled Urine Glucose Cancelled Microbiology Date/Time Procedure - Status Source Growth 11/03 1800 Surveillance Culture - COMP UPPER RESP 11/03 1556 Surveillance Culture - CAN GI Cancelled: NO SAMPLE COLLECTED 11/03 1502 Blood Culture - RES BLOOD 11/03 1216 Urine Culture - CAN URINE ROUT Cancelled: NO URINE COLLECTED 11/03 1152 Blood Culture - RES BLOOD 11/03 1140 Blood Culture - RES BLOOD Objective Current Medications: Current Medications Sig/Ta Start time Last Medication Dose Route Stop Time Status Admin Albuterol Sulfate 2 PUF Q4-PRN PRN 11/03 1945 AC INH Calcium Carbonate 650 MG BID 11/04 2100 DC 11/05 PO 11/05 0901 0725 Carvedilol 6.25 MG BID 11/04 2100 AC 11/05 PO 0725 Carvedilol 6.25 MG BID 11/03 2100 DC 11/04 PO 0756 Ceftazidime 2,000 MG IQ8 11/04 0000 DC 11/05 IV 0725 Finasteride 5 MG DAILY 11/04 899 AC 11/05 PO 0724 Folic Acid 1 MG DAILY 11/04 899 AC 11/05 PO 0724 Furosemide 40 MG DAILY 11/05 09 AC 11/05 PO 0724 Hydrocortisone 25 MG Q8 11/04 1400 AC 11/05 Sodium Succinate IV 0642 Hydrocortisone 50 MG Q8 11/03 2200 DC 11/04 Sodium Succinate IV 0642 Losartan Potassium 50 MG DAILY 11/05 09 DC PO Losartan Potassium 50 MG DAILY 11/05 0900 AC 11/05 PO 0725 Nystatin 1 CLAIRE TIDPRN PRN 11/03 1500 AC TOP Potassium Chloride 40 MEQ ONCE ONE 11/05 899 DC 11/05 PO 11/05 0901 0906 Tamsulosin HCl 0.4 MG BID 11/04 1257 AC 11/05 PO 0725 Tiotropium [place] 1 PUF DAILY 11/05 899 AC 11/05 INH 0725 Vancomycin HCl 1,500 MG Q12H 11/04 0200 DC 11/05 Sodium Chloride 250 ML IV 0300 Vital Signs & I&O Last 24 Hrs of Vitals and I&O: Vital Signs Date Time Temp Pulse Resp B/P B/P Pulse O2 O2 Flow FiO2 Mean Ox Delivery Rate 11/05 0800 Room Air 11/05 0800 97.4 72 20 140/80 96 Room Air 11/05 0725 72 140/80 11/05 0725 72 140/80 11/05 0725 72 140/80 11/05 0000 97.8 70 26 122/68 97 Room Air Room Air 11/05 2011 71 118/70 11/04 1600 96.7 72 20 126/68 97 Room Air 11/04 1357 77 103/48 Intake & Output 11/05 1600 11/05 0800 11/05 0000 Intake Total 535 860 Output Total Balance 535 860 Intake, Blood 305 340 Product Intake, IV 30 40 Intake, Oral 200 480 Number 1 Bowel Movements Patient 296 lb Weight Weight Bed scale Measurement Method Impression/Plan Impression/Plan Impression/Plan: General Appearance: well developed/nourished, no apparent distress, alert, awake , comfortable, obese Head: atraumatic Eyes: Bilateral: PERRL, EOMI. Ears, Nose, Throat: normal pharynx Neck: supple Respiratory: chest non-tender, no respiratory distress, quiet respiration, crackles (At bases) Cardiovascular: regular rate/rhythm, edema Gastrointestinal: normal bowel sounds, soft, non-tender, no organomegaly Extremities: tenderness (right lower extremity), dressing in place on the left lower extremity Neurologic/Psych: awake, alert, oriented x 3 Skin: left lower extremity wound, erythematous rash in groin, chronic venous ulcer CT Chest/abdomen/pelvis with contrast 11/03/2017: CHEST: Lung: Significant posttreatment changes are seen. There is now linear fibrotic changes in the right lung apex suggesting post radiation treatment. The more discrete nodular opacity along the subpleural aspect of the posterior medial right apex has decreased in prominence from the prior studies currently measuring 1.7 cm maximally. The linear fibrotic changes adjacent to this area again are suggestive of postradiation fibrosis with mild traction bronchiectasis. There is a stable 5 mm stable pulmonary nodule seen in the right middle lobe seen best on axial image 242/510. Linear regions of scarring/fibrosis seen in the dependent lungs. This is superimposed on centrilobular emphysematous changes. Mediastinum: The right paratracheal lymph node currently measures 1.9 cm and short axis diameter which is decreased from 3.4 cm on the 08/26/2017 PET/CT scan. Vascular calculations seen within the aorta and coronary arteries. Pacemaker/AICD leads are noted. Pericardium/Pleura: No significant effusion. No pleural mass or thickening. Chest Wall/Axilla: Unremarkable. IMPRESSION: Posttreatment changes in the right lung apex suggesting post radiation scarring and fibrosis as described more detail above. I do not appreciate any suspicious area of consolidation. Chronic appearing changes are present within the abdomen and pelvis. Gallstones are seen in the contracted but otherwise unremarkable gallbladder. This is subtle irregularity along the posterolateral left wall of the bladder is difficult to define further due to artifact in this area. Clinical correlation would be helpful. Direct visualization of the bladder may be helpful. There is a hypoattenuation in the region of the prostate again difficult to define further due to the metallic artifact from the left hip prosthesis. Cystic change within the prostate cannot be entirely excluded. This is been present on prior studies which would make prostatic abscess less likely. Clinical correlation would be helpful. This is a gentleman with multiple than [id number] smoker, CT scan suggestive of significant emphysema with clinically seemed to have severe COPD, chronic venous stasis with pedal edema, paroxysmal atrial fibrillation on Xeralto on multiple medications for heart rate control, previous history of tachycardia induced cardiomyopathy, previous atrial fibrillation status post AV miriam ablation with dual-chamber pacemaker, Obstructive sleep apnea, morbid obesity with recent significant weight loss, very severe rheumatoid arthritis previously on methotrexate, Enbrel, low-dose prednisone, BPH, hypertension, atrial fibrillation on xeralto now recent dx of stage III SCLCA s/p ongoing xrt with chemo carboplatin/etoposide, neulasta with * Resolved Febrile neutropenia with pancytopenia, with resolved hypotension ( improved after ivf, in a gentleman on current chemo, with dyphagia, abnormal bladder by ct, groin bud and chronic nonhealing venous ulcer with recent hematoma of lower ext. Pt is also immunosupp due to chronic steroid use for RA, previous MTX etc, Now improved and ID on board, and pt on broad spectrum abx. S/ p agg fluid resusitation) * No active pna by ct and ct shows good improvement * COPD severe with no exacerbation or pna * Previous tachycardia-induced cardiomyopathy now with recovered ejection fraction, paroxysmal atrial fibrillation now status post AV miriam ablation with biventricular pacer and AICD, now has recovered his ejection fraction. Has chronic pafib was on xeralto now held * Obstructive sleep apnea on CPAP * Previous Significant rheumatoid arthritis was on triple therapy. (Enbrel, methotrexate, prednisone), now on prednisone * H/o Hypertension, hyperlipidemia, morbid obesity, chronic venous insufficiency with lower extremity edema with chronic ulcer * Dysphagia now improved * Pancytopenia due to chemo improving * Sig thrombocytopenia needs monitoring PLAN Stable Keep off abx check with onc about platelets and if ok can dc Prednisone 10 for 3 and then 5 Urology to follow as out pt Dressing for his leg ulcer Nystatin To dc soon if ok with heme
--- NOTE | 2017-11-05 13:38 | PN- Infect Dx ---
Subjective Subjective: Afebrile on steroids without complaints. His retrosternal discomfort with eating has improved as has his groin candidiasis. Objective Last 24 Hrs of Vital Signs/I&O Vital Signs Date Time Temp Pulse Resp B/P B/P Pulse O2 O2 Flow FiO2 Mean Ox Delivery Rate 11/05 08 Room Air 11/06 799 97.4 72 20 140/80 96 Room Air 11/05 0725 72 140/80 11/05 0725 72 140/80 11/05 0725 72 140/80 11/05 0000 97.8 70 26 122/68 97 Room Air Room Air 11/05 2011 71 118/70 11/04 1600 96.7 72 20 126/68 97 Room Air 11/04 1357 77 103/48 Intake & Output 11/05 0000 Intake Total 535 860 Output Total Balance 535 860 Intake, Blood 305 340 Product Intake, IV 30 40 Intake, Oral 200 480 Number 1 Bowel Movements Patient 296 lb Weight Weight Bed scale Measurement Method Physical Exam Other Physical Findings: He appears comfortable in no acute distress HEENT negative Lungs are clear Heart regular rhythm with no murmur Extremities improvement of the candidal rash in the groin; left leg dressing intact Results Last 24 Hours of Lab Results: Laboratory Tests 11/05 0305 Chemistry Sodium (137 - 145 mmol/L) 144 Potassium (3.5 - 5.1 mmol/L) 3.8 Chloride (98 - 107 mmol/L) 108 H Carbon Dioxide (22 - 30 mmol/L) 23 Anion Gap (5 - 16) 13 BUN (9 - 20 mg/dL) 28 H Creatinine (0.7 - 1.2 mg/dL) 0.7 Estimated GFR (>60 ml/min) > 60 BUN/Creatinine Ratio (7 - 25 %) 40.0 H Hematology CBC w Diff MAN DIFF ORDERED WBC (4.8 - 10.8 /CUMM) 6.4 RBC (4.70 - 6.10 /CUMM) 2.94 L Hgb (14.0 - 18.0 G/DL) 8.8 L Hct (42 - 52 %) 26.2 L MCV (80.0 - 94.0 FL) 89.0 MCH (27.0 - 31.0 PG) 30.0 MCHC (33.0 - 37.0 G/DL) 33.7 RDW (11.5 - 14.5 %) 15.3 H Plt Count (130 - 400 /CUMM) 30 L MPV (7.4 - 10.4 FL) 8.8 Gran % (42.2 - 75.2 %) 83.3 H Lymphocytes % (20.5 - 51.1 %) 7.5 L Monocytes % (1.7 - 9.3 %) 8.2 Eosinophils % (0 - 5 %) 0.5 Basophils % (0.0 - 2.0 %) 0.5 Absolute Granulocytes (1.4 - 6.5 /CUMM) 5.3 Segmented Neutrophils (42.2 - 75.2 %) 75 Band Neutrophils (0.0 - 5.0 %) 3 Absolute Lymphocytes (1.2 - 3.4 /CUMM) 0.5 L Lymphocytes (20.5 - 51.1 %) 14 L Monocytes (1.7 - 9.3 %) 6 Absolute Monocytes (0.10 - 0.60 /CUMM) 0.5 Eosinophils (0 - 5.0 %) 1 Absolute Eosinophils (0.0 - 0.7 /CUMM) 0 Absolute Basophils (0.0 - 0.2 /CUMM) 0 Metamyelocytes (0.0 - 1.0 %) 1 Platelet Estimate (ADEQUATE) DECREASED Normochromic RBCs VERIFIED Ovalocytes FEW Other Body Source Fld Total RBCs Counted (%) 100 Last 24 Hours of [place] Results: Blood cultures November 03 negative Assessment/Plan ID Impression: Stable, with temperatures remaining normal (on steroids) and white blood cell count continuing to increase, on Vancomycin and Ceftazidime, Day 2 of treatment for possible sepsis, with no evidence of any active infection and with his blood cultures remaining negative. His platelet count has decreased, but suspect it will gradually increase, now 11 days status post chemotherapy. Suggestion: 1. Discontinue Vancomycin and Ceftazidime and follow off antibiotics
== END 2017-11-05 12:20 | DRG 809 ==
LOC: ERH 11:04 → CRI 13:51 → ERHI 13:51 → EDBEDREQ 14:11 → ENRESERV 14:19 → ERHI 14:21 → ENTRNSPT 16:43 → EDTRNSPTSTS 16:58 → EDTRNSPT 16:58 → CRI 17:26 → CMPTRNSPT 17:57 → CRI 22:56
PROVIDERS: Emergency Medicine; Internal Medicine Endocrinology, Diabetes & Metabolism; Preventive Medicine Public Health & General Preventive Medicine; Student in an Organized Health Care Education/Training Program
PROC: 30233N1 Transfusion of Nonautologous Red Blood Cells into Peripheral Vein, Percutaneous Approach (ICD-10-PCS; principal; 2017-11-03)
PROC: 30233R1 Transfusion of Nonautologous Platelets into Peripheral Vein, Percutaneous Approach (ICD-10-PCS; 2017-11-03)
DX: D61.810 Antineoplastic chemotherapy induced pancytopenia (principal); C34.92 Malignant neoplasm of unspecified part of left bronchus or lung; L97.829 Non-pressure chronic ulcer of other part of left lower leg with unspecified severity; I42.9 Cardiomyopathy, unspecified; E66.01 Morbid (severe) obesity due to excess calories; Z68.39 Body mass index [BMI] 39.0-39.9, adult; I11.0 Hypertensive heart disease with heart failure; I50.9 Heart failure, unspecified; I48.2 Chronic atrial fibrillation; Z79.01 Long term (current) use of anticoagulants; I95.9 Hypotension, unspecified; J44.9 Chronic obstructive pulmonary disease, unspecified; R50.81 Fever presenting with conditions classified elsewhere; D69.59 Other secondary thrombocytopenia; D64.9 Anemia, unspecified; Z95.0 Presence of cardiac pacemaker; M06.9 Rheumatoid arthritis, unspecified; Z79.52 Long term (current) use of systemic steroids; Z92.21 Personal history of antineoplastic chemotherapy; G47.33 Obstructive sleep apnea (adult) (pediatric); Z96.649 Presence of unspecified artificial hip joint; Z96.659 Presence of unspecified artificial knee joint; T45.1X5A Adverse effect of antineoplastic and immunosuppressive drugs, initial encounter; Y92.89 Other specified places as the place of occurrence of the external cause
CPT/HCPCS: CCU; 36415; 71045; 74177; 82436; 86920; 87040; 87086; 93005; 93010; 99291; J0713; J1642; J1720; J3370; J3490; J7040; J7512; P9016; P9035